=== PATIENT | female | born 1965 | race African-American/Black ===

== ENCOUNTER 2016-11-27 14:36 | Emergency (ER) | payer OTHER ==
[2016-11-27] MEDS ORDERED: ACETAMINOPHEN TAB 500 MG TAB PO STA (14:56)
[2016-11-27] MEDS ORDERED: IBUPROFEN 600 MG TAB PO STA (14:56)
--- NOTE | 2016-11-27 14:59 | ED ---
General Adult HPI - General Chief complaint: Chest Pain Stated complaint: Chest Pain Time Seen by Provider: 11/27/16 14:40 Source: patient, RN notes reviewed Mode of arrival: wheelchair Limitations: no limitations - History of Present Illness Initial comments: This is a 51-year-old female presents emergency room stating she wasn't feeling good last evening and continues not to feel well today. Patient states she has a very bad sore throat and then she started having some chest tightness last night it is subsided after she took Motrin and at that time she had 102 fever. Patient states this morning the chest tightness came back and she had a fever but she did not take any medications. Patient states the sore throat continues. Patient denies any difficulty breathing or shortness of breath. Patient denies any cough. Patient denies any palpitations. Patient denies any abdominal pain patient denies nausea vomiting diarrhea. Patient denies any dysuria hematuria urinary frequency. - Related Data Previous Rx's Medication Instructions Recorded Amoxicillin 500 mg PO Q8H #30 capsule 11/27/16 predniSONE 40 mg PO DAILY #8 tab 11/27/16 Allergies Allergy/AdvReac Type Severity Reaction Status Date / Time codeine Allergy Hallucinati Verified 11/27/16 14:59 ons morphine Allergy Hallucinati Verified 11/27/16 14:59 ons Review of Systems ROS Statement: Those systems with pertinent positive or pertinent negative responses have been documented in the HPI. ROS Other: All systems not noted in ROS Statement are negative. Past Medical History Additional Past Medical History / Comment(s): arnold kiari malformation, HSV type 2 History of Any Multi-Drug Resistant Organisms: None Reported Past Surgical History: Appendectomy, Hysterectomy Additional Past Surgical History / Comment(s): brain, partial hysterectomy Past Psychological History: No Psychological Hx Reported Smoking Status: Never smoker Past Alcohol Use History: None Reported Past Drug Use History: None Reported General Exam - General Exam Comments Initial Comments: GENERAL: Patient is well-developed and well-nourished. Patient is nontoxic and well- hydrated and is in mild distress. ENT: Neck is soft and supple. Patient has some anterior lymphadenopathy. Oropharynx appears slightly erythematous. Moist mucous membranes. Neck has full range of motion without eliciting any pain. EYES: The sclera were anicteric and conjunctiva were pink and moist. Extraocular movements were intact and pupils were equal round and reactive to light. Eyelids were unremarkable. PULMONARY: Unlabored respirations. Good breath sounds bilaterally. No audible rales rhonchi or wheezing was noted. CARDIOVASCULAR: There is a regular rate and rhythm without any murmurs gallops or rubs. ABDOMEN: Soft and nontender with normal bowel sounds. No palpable organomegaly was noted. There is no palpable pulsatile mass. SKIN: Skin is clear with no lesions or rashes and otherwise unremarkable. NEUROLOGIC: Patient is alert and oriented x3. Cranial nerves II through XII are grossly intact. Motor and sensory are also intact. Normal speech, volume and content. Symmetrical smile. MUSCULOSKELETAL: Normal extremities with adequate strength and full range of motion. LYMPHATICS: No significant lymphadenopathy is noted PSYCHIATRIC: Normal psychiatric evaluation. Normal interpersonal interactions appears functionally intact in deals appropriately with others. No signs of depression. 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 Patient's EKG shows no ST segment elevation or depression or T wave abnormalities are noted Patient's chest x-ray shows no acute normalities. Patient's strep was positive. I gave the patient amoxicillin and some prednisone for the swelling. - Lab Data Result diagrams: 11/27/16 15:00 11/27/16 15:00 Lab Results 11/27/16 11/27/16 11/27/16 Range/Units 15:00 15:00 15:00 WBC 15.2 H (3.8-10.6) k/uL RBC 4.76 (3.80-5.40) m/uL Hgb 13.7 (11.4-16.0) gm/dL Hct 40.4 (34.0-46.0) % MCV 84.7 (80.0-100.0) fL MCH 28.8 (25.0-35.0) pg MCHC 34.0 (31.0-37.0) g/dL RDW 13.7 (11.5-15.5) % Plt Count 164 (150-450) k/uL Neutrophils % 85 % Lymphocytes % 10 % Monocytes % 3 % Eosinophils % 1 % Basophils % 0 % Neutrophils # 12.9 H (1.3-7.7) k/uL Lymphocytes # 1.5 (1.0-4.8) k/uL Monocytes # 0.4 (0-1.0) k/uL Eosinophils # 0.2 (0-0.7) k/uL Basophils # 0.0 (0-0.2) k/uL PT (9.0-12.0) sec INR (<1.1) APTT (22.0-30.0) sec Sodium 141 (137-145) mmol/L Potassium 4.3 (3.5-5.1) mmol/L Chloride 106 (98-107) mmol/L Carbon Dioxide 23 (22-30) mmol/L Anion Gap 12 mmol/L BUN 11 (7-17) mg/dL Creatinine 0.74 (0.52-1.04) mg/dL Est GFR (MDRD) Af Amer >60 (>60 ml/min/1.73 sqM) Est GFR (MDRD) Non-Af >60 (>60 ml/min/1.73 sqM) Glucose 113 H (74-99) mg/dL Plasma Lactic Acid Jessee (0.7-2.0) mmol/L Calcium 9.9 (8.4-10.2) mg/dL Magnesium 2.0 (1.6-2.3) mg/dL Total Bilirubin 1.5 H (0.2-1.3) mg/dL AST 27 (14-36) U/L ALT 21 (9-52) U/L Alkaline Phosphatase 92 (38-126) U/L Total Creatine Kinase 130 (30-135) U/L CK-MB (CK-2) 0.3 (0.0-2.4) ng/mL CK-MB (CK-2) Rel Index 0.2 Troponin I <0.012 (0.000-0.034) ng/mL Total Protein 8.1 (6.3-8.2) g/dL Albumin 4.7 (3.5-5.0) g/dL Urine Color Urine Appearance (Clear) Urine pH (5.0-8.0) Ur Specific Heppner (1.001-1.035) Urine Protein (Negative) Urine Glucose (UA) (Negative) Urine Ketones (Negative) Urine Blood (Negative) Urine Nitrite (Negative) Urine Bilirubin (Negative) Urine Urobilinogen (<2.0) mg/dL Ur Leukocyte Esterase (Negative) Urine RBC (0-5) /hpf Urine WBC (0-5) /hpf Ur Squamous Epith Cells (0-4) /hpf Urine Mucus (None) /hpf Group A Strep Rapid (Negative) 11/27/16 11/27/16 11/27/16 Range/Units 15:00 15:00 15:30 WBC (3.8-10.6) k/uL RBC (3.80-5.40) m/uL Hgb (11.4-16.0) gm/dL Hct (34.0-46.0) % MCV (80.0-100.0) fL MCH (25.0-35.0) pg MCHC (31.0-37.0) g/dL RDW (11.5-15.5) % Plt Count (150-450) k/uL Neutrophils % % Lymphocytes % % Monocytes % % Eosinophils % % Basophils % % Neutrophils # (1.3-7.7) k/uL Lymphocytes # (1.0-4.8) k/uL Monocytes # (0-1.0) k/uL Eosinophils # (0-0.7) k/uL Basophils # (0-0.2) k/uL PT (9.0-12.0) sec INR (<1.1) APTT (22.0-30.0) sec Sodium (137-145) mmol/L Potassium (3.5-5.1) mmol/L Chloride (98-107) mmol/L Carbon Dioxide (22-30) mmol/L Anion Gap mmol/L BUN (7-17) mg/dL Creatinine (0.52-1.04) mg/dL Est GFR (MDRD) Af Amer (>60 ml/min/1.73 sqM) Est GFR (MDRD) Non-Af (>60 ml/min/1.73 sqM) Glucose (74-99) mg/dL Plasma Lactic Acid Jessee 1.0 (0.7-2.0) mmol/L Calcium (8.4-10.2) mg/dL Magnesium (1.6-2.3) mg/dL Total Bilirubin (0.2-1.3) mg/dL AST (14-36) U/L ALT (9-52) U/L Alkaline Phosphatase (38-126) U/L Total Creatine Kinase (30-135) U/L CK-MB (CK-2) (0.0-2.4) ng/mL CK-MB (CK-2) Rel Index Troponin I (0.000-0.034) ng/mL Total Protein (6.3-8.2) g/dL Albumin (3.5-5.0) g/dL Urine Color Yellow Urine Appearance Clear (Clear) Urine pH 7.0 (5.0-8.0) Ur Specific Heppner 1.014 (1.001-1.035) Urine Protein Negative (Negative) Urine Glucose (UA) Negative (Negative) Urine Ketones Negative (Negative) Urine Blood Large H (Negative) Urine Nitrite Negative (Negative) Urine Bilirubin Negative (Negative) Urine Urobilinogen 2.0 (<2.0) mg/dL Ur Leukocyte Esterase Negative (Negative) Urine RBC 53 H (0-5) /hpf Urine WBC 1 (0-5) /hpf Ur Squamous Epith Cells 1 (0-4) /hpf Urine Mucus Rare H (None) /hpf Group A Strep Rapid Positive A (Negative) 11/27/16 Range/Units 16:15 WBC (3.8-10.6) k/uL RBC (3.80-5.40) m/uL Hgb (11.4-16.0) gm/dL Hct (34.0-46.0) % MCV (80.0-100.0) fL MCH (25.0-35.0) pg MCHC (31.0-37.0) g/dL RDW (11.5-15.5) % Plt Count (150-450) k/uL Neutrophils % % Lymphocytes % % Monocytes % % Eosinophils % % Basophils % % Neutrophils # (1.3-7.7) k/uL Lymphocytes # (1.0-4.8) k/uL Monocytes # (0-1.0) k/uL Eosinophils # (0-0.7) k/uL Basophils # (0-0.2) k/uL PT 10.6 (9.0-12.0) sec INR 1.0 (<1.1) APTT 24.1 (22.0-30.0) sec Sodium (137-145) mmol/L Potassium (3.5-5.1) mmol/L Chloride (98-107) mmol/L Carbon Dioxide (22-30) mmol/L Anion Gap mmol/L BUN (7-17) mg/dL Creatinine (0.52-1.04) mg/dL Est GFR (MDRD) Af Amer (>60 ml/min/1.73 sqM) Est GFR (MDRD) Non-Af (>60 ml/min/1.73 sqM) Glucose (74-99) mg/dL Plasma Lactic Acid Jessee (0.7-2.0) mmol/L Calcium (8.4-10.2) mg/dL Magnesium (1.6-2.3) mg/dL Total Bilirubin (0.2-1.3) mg/dL AST (14-36) U/L ALT (9-52) U/L Alkaline Phosphatase (38-126) U/L Total Creatine Kinase (30-135) U/L CK-MB (CK-2) (0.0-2.4) ng/mL CK-MB (CK-2) Rel Index Troponin I (0.000-0.034) ng/mL Total Protein (6.3-8.2) g/dL Albumin (3.5-5.0) g/dL Urine Color Urine Appearance (Clear) Urine pH (5.0-8.0) Ur Specific Heppner (1.001-1.035) Urine Protein (Negative) Urine Glucose (UA) (Negative) Urine Ketones (Negative) Urine Blood (Negative) Urine Nitrite (Negative) Urine Bilirubin (Negative) Urine Urobilinogen (<2.0) mg/dL Ur Leukocyte Esterase (Negative) Urine RBC (0-5) /hpf Urine WBC (0-5) /hpf Ur Squamous Epith Cells (0-4) /hpf Urine Mucus (None) /hpf Group A Strep Rapid (Negative) Disposition Clinical Impression: Strep pharyngitis Disposition: HOME SELF-CARE Condition: Good Instructions: Strep Throat (ED) Prescriptions: Amoxicillin 500 mg PO Q8H #30 capsule predniSONE 40 mg PO DAILY #8 tab Referrals: Keren Turner MD [Primary Care Provider] - 1-2 days
[2016-11-27 15:34] VITALS: RESP 18
--- NOTE | 2016-11-27 15:35 | XR ---
EXAMINATION TYPE: XR chest 2V DATE OF EXAM: 11/27/2016 CLINICAL HISTORY: Chest pain TECHNIQUE: Frontal and lateral views of the chest are obtained. COMPARISON: 08/17/2015 FINDINGS: There is no focal air space opacity, pleural effusion, or pneumothorax seen. The cardiac silhouette size is within normal limits. The osseous structures are intact. IMPRESSION: No acute cardiopulmonary process.
[2016-11-27 15:45] LABS: Appearance,Urine Clear (Clear); Bilirubin,Urine Negative (Negative); Glucose,Urine (UA) Negative (Negative); Ketones,Urine Negative (Negative); Leukocyte Esterase,Urine Negative (Negative); Mucus,Urine Rare /hpf; Nitrite,Urine Negative (Negative); Particle Count 1526; Protein,Urine Negative (Negative); RBC,Urine 53 /hpf (0-5); Specific Gravity,Urine 1.014 (1.001-1.035); Squamous Epithelial Cell,Urine 1 /hpf (0-4); UA Billing (MACRO vs. MICRO) MICRO; WBC,Urine 1 /hpf (0-5)
[2016-11-27 15:47] LABS: Basophils % (A) 0 %; CH 28.5; CHCM 33.8; Eosinophils # (A) 0.2 k/uL (0-0.7); Eosinophils % (A) 1 %; HCT 40.4 % (34.0-46.0); HDW 2.61; HGB 13.7 gm/dL (11.4-16.0); Luc # (Auto) 0.15; Luc % (Auto) 1; Lymphocytes # (A) 1.5 k/uL (1.0-4.8); Lymphocytes % (A) 10 %; MCH 28.8 pg (25.0-35.0); MCV 84.7 fL (80.0-100.0); Mean Platelet Volume 8.6; Monocytes # (A) 0.4 k/uL (0-1.0); Monocytes % (A) 3 %; Neutrophils # (A) 12.9 k/uL (1.3-7.7); Neutrophils % (A) 85 %; RBC 4.76 m/uL (3.80-5.40); RDW 13.7 % (11.5-15.5); WBC 15.2 k/uL (3.8-10.6); WBC (Perox) 14.38
[2016-11-27 15:54] LABS: ALT 21 U/L (9-52); AST 27 U/L (14-36); Alkaline Phosphatase 92 U/L (38-126); Anion Gap 12 mmol/L; Blood Urea Nitrogen 11 mg/dL (7-17); Calcium 9.9 mg/dL (8.4-10.2); Carbon Dioxide 23 mmol/L (22-30); Chloride 106 mmol/L (98-107); Glucose 113 mg/dL (74-99); Non-African American GFR(MDRD) >60 (>60 ml/min/1.73 sqM); Potassium 4.3 mmol/L (3.5-5.1); Sodium 141 mmol/L (137-145); Total Bilirubin 1.5 mg/dL (0.2-1.3); Total Protein 8.1 g/dL (6.3-8.2)
[2016-11-27 16:04] LABS: Creatine Kinase 130 U/L (30-135)
[2016-11-27 16:18] LABS: Creatine Kinase MB 0.3 ng/mL (0.0-2.4); Troponin I <0.012 ng/mL (0.000-0.034)
[2016-11-27 16:28] LABS: Partial Thromboplastin Time 24.1 sec (22.0-30.0)
[2016-11-27 16:32] LABS: Prothrombin Time 10.6 sec (9.0-12.0)
[2016-11-27] MEDS ORDERED: AMOXICILLIN 875 MG TAB PO STA (16:43)
[2016-11-27] MEDS ORDERED: predniSONE 50 MG TAB PO STA (16:43)
[2016-11-27] MEDS ORDERED: AMOXICILLIN 500MG STARTER PACK 3 CAP BTL PO STA (16:43)
[2016-11-27 17:07] VITALS: BP 104/57; PULSE 88; TEMP 98.6
== END 2016-11-27 17:07 | disposition home or self-care (01) ==
LOC: EC 14:36
DX: J02.0 Streptococcal pharyngitis (principal); R07.89 Other chest pain; R00.0 Tachycardia, unspecified; Z88.5 Allergy status to narcotic agent
CPT/HCPCS: 36415; 93005; 80053; 82550; 82553; 83605; 83735; 84484; 85025; 85610; 85730; 81001; 87040; 87430; 71020; 99285; J7512

== ENCOUNTER → 2019-11-09 | Outpatient (CLI) | payer OTHER ==
[2019-11-09 14:49] VITALS: BP 110/68; PULSE 74; RESP 18; TEMP 98.3
--- NOTE | 2019-11-09 16:10 | P.GSHP ---
History of Present Illness H&P Date: 11/09/19 Chief Complaint: mass right breast Esmer is a 54 year old female seen in consultation for Dr. Lugo, who noted a lump in her right breast about 3 weeks ago. The area was noted to be tender and had a burning sensatin. The area seems to have gotten sm aller as per the patient. She states she was seen in the ER at [facility] about three weeks ago secondary to feeling a lump in that area. She was seen by DR. Lugo, and a bilateral mammogram and ultrasound were done. These were done on 10-26-19, and 10-27-19. She was some irregular new density in the craniocaudal view. Ultrasound was recommended. Ultrasound of the right breast revealed a microlobulated non-circumscribed irregular mass. This was 2.3 cm x 2.4 cm at the 12 o'clock position. The patient states she had a prior right breast biopsy several years ago at [facility]. The results were benign although she does not remember exactly when it was done. She does not think that the lump corresponds to the area of the prior biopsy. She does not complain of any nipple discharge. She does have some mild skin discoloration near the area where the ultrasound was performed. She does not drink caffeine. She does not smoke and is not exposed to second hand smoke. She has chocolate occasionally. He does not take hormones. Family History: mother: cervical and colon cancer, bilateral buttock cancers maternal cousin: breast cancer Hormonal History: menarche: 18 , 1stillborn, 2 miscarriages; first born at 26, breast fed: no menopause: partial hysterectomy at 42; fibroid tumors BCP: none hormones: none Surgical history: 1. Partial hysterectomy at 42 for fibroid tumors 2. Right breast biopsy 3. Appendectomy 4. lump under left arm 5. Arnold-Chiari malformation had brain surgery in 2006 secondary to headaches Medical History: 1. Arnold-Chiari malformation (spatial issues, muscle weakness right side of body, poor balance) Social History: smoke: none alcohol: wine occasional drugs: none - Constitutional Constitutional: Reports sweats - EENT Comment: arnold chairi malformation/ status post surgery Ears: bilateral: tinnitus, deny: decreased hearing Ears, nose, mouth and throat: Reports headache - Breasts Breasts: bilateral: as per HPI - Cardiovascular Cardiovascular: Denies chest pain, Denies shortness of breath - Respiratory Comment: grew out of asthma, used to get pneumona in the summer not recently for 4 years - Gastrointestinal Gastrointestinal: Reports constipation - Genitourinary (Female) Genitourinary: Denies dysuria, Denies hematuria - Menstruation Menstruation: Reports post hysterectomy - Musculoskeletal Comment: weakness on the right side cramping in her right leg - Integumentary Integumentary: Denies pruritus, Denies rash - Neurological Neurological: Reports weakness - Psychiatric Psychiatric: Reports anxiety, Denies depression - Endocrine Endocrine: Reports weight change, Denies fatigue - Hematologic/Lymphatic Comment: none - Allergic/Immunologic Allergic/Immunologic: Reports seasonal allergies Past Medical History Additional Past Medical History / Comment(s): arnold kiari malformation, HSV type 2 History of Any Multi-Drug Resistant Organisms: None Reported Past Surgical History: Appendectomy, Hysterectomy Additional Past Surgical History / Comment(s): brain, partial hysterectomy Past Psychological History: No Psychological Hx Reported Smoking Status: Never smoker Past Alcohol Use History: None Reported Past Drug Use History: None Reported Medications and Allergies Home Medications Medication Instructions Recorded Confirmed Type Ascorbic Acid [Vitamin C] 500 mg PO DAILY 11/09/19 11/09/19 History Cascara [place] 1 tab PO DAILY 11/09/19 11/09/19 History Cholecalciferol [Vitamin D3 (25 2,000 unit PO DAILY 11/09/19 11/09/19 History Mcg = 1000 Iu)] Licorice Extract 1 ml PO DAILY 11/09/19 11/09/19 History Lysine 500 mg PO DAILY 11/09/19 11/09/19 History Magnesium 200 mg PO DAILY 11/09/19 11/09/19 History Potassium Iodide [SSKI] 0 ml PO DAILY 11/09/19 11/09/19 History Vitamin B Complex 1 each PO DAILY 11/09/19 11/09/19 History Zinc 50 mg PO DAILY 11/09/19 11/09/19 History Allergies Allergy/AdvReac Type Severity Reaction Status Date / Time amoxicillin Allergy Rash/Hives Unverified 11/09/19 14:37 codeine Allergy Hallucinati Verified 11/09/19 14:37 ons Iodinated Contrast Media Allergy Rash/Hives Unverified 11/09/19 14:37 morphine Allergy Hallucinati Verified 11/09/19 14:37 ons Sulfa (Sulfonamide Allergy Rash/Hives Unverified 11/09/19 14:37 Antibiotics) sulfamethoxazole Allergy Rash/Hives Unverified 11/09/19 14:37 [From Bactrim] trimethoprim [From Bactrim] Allergy Rash/Hives Unverified 11/09/19 14:37 Surgical - Exam Vital Signs Temp Pulse Resp BP Pulse Ox 98.3 F 74 18 110/68 98 11/09/19 14:42 11/09/19 14:42 11/09/19 14:42 11/09/19 14:42 11/09/19 14:42 BMI 31.4 - General well developed, well nourished - Eyes normal ocular movement - ENT no hearing loss, no congestion - Neck no masses, trachea midline - Respiratory normal expansion, normal respiratory effort, clear to auscultation - Cardiovascular Rhythm: regular Heart Sounds: normal: S1, S2 - Abdomen Abdomen: soft, non tender, no guarding, no rigid, no rebound - Integumentary normal turgor - Neurologic no disoriented, no combative - Musculoskeletal normal gait, normal posture - Psychiatric oriented to time, oriented to person, oriented to place, speech is normal, memory intact breast exam: BRA: 44G inspection: grade three ptosis bilateral Palpation: Right breast: Right breast is significantly larger than the left breast, fibrocystic breast changes and multiple positional exam, at the 12 o'clock posi tion was approximately 3 x 2.5 cm fullness/mass, this is discrete from the prior biopsy site, there is a well-healed scar in the area of the axilla from prior surgery as well Right axilla: No adenopathy of concern Left breast: Multiple positional exam no dominant masses or nodules of concern, left breast is smaller than the right breast Left axilla: No adenopathy of concern Results Mammogram and ultrasound reviewed with Dr. Xavier from radiology Assessment and Plan Assessment: Impression: Mass right breast Four [place] Chiari malformation/status post surgery Weakness right side of body Abnormal right breast mammogram and ultrasound Asymmetry of the breast Plan: 1. Ultrasound-guided core biopsy right breast 2. Follow-up after ultrasound-guided core biopsy of right breast 3. Medical management of medical conditions CC: Dr. Lugo encounter 45 minutes, > 50% of time spent in planning and counselling
== END | disposition home or self-care (01) ==
LOC: WWCWWP 14:23
PROVIDERS: ATTEND Surgery
DX: Z53.9 Procedure and treatment not carried out, unspecified reason (principal)

== ENCOUNTER → 2019-11-15 | Day surgery (SDC) | payer OTHER ==
[2019-11-15 09:44] VITALS: RESP 16; TEMP 98.3
[2019-11-15 11:48] VITALS: BP 134/81; PULSE 71
--- NOTE | 2019-11-15 12:15 | USB ---
EXAMINATION TYPE: US biopsy breast VAD RT, MG post procedure diagnostic mammo RT wo CAD DATE OF EXAM: 11/15/2019 CLINICAL HISTORY: 54-year-old female R92.8 ABN MAMMO. TECHNIQUE: Ultrasound guided core biopsy of right breast. COMPARISON: 10/26/2019 and 10/27/2019 FINDINGS: The procedure of ultrasound guided core biopsy was explained to the patient. Benefits, alternatives, and risks were discussed. An informed consent was then obtained. The irregular 3.1 cm, 12:00 vascular heterogeneous area was identified and targeted for biopsy. The patient was placed in supine positioning for imaging and for the procedure. The overlying skin was prepped and draped in usual sterile fashion. Lidocaine was used as anesthetic into the skin. Lidocaine/epinephrine mixture was used in the subcutaneous tissues up to and into the area of concern in the 12:00 right breast. Patient was experiencing discomfort/pain during the numbing and during the sampling. Under ultrasound guidance, a 13-gauge vacuum-assisted mammotome Elite biopsy gun device was used to obtain 8 core samples. The needle was turned to take samples from multiple positions. Following this, a coil clip was left at the site of sampling. The patient tolerated the procedure well without any immediate complication. The patient was kept in the radiology department for short stay after the procedure and then discharged home in stable condition. Post procedure mammogram shows clip at the site of mammographic focal asymmetry. IMPRESSION: Successful, uncomplicated ultrasound guided core biopsy of irregular 3.1 cm palpable and painful area in the 12:00 right breast. Findings are suspicious. If benign results, needle localization and excision will be recommended. Full pathology results to follow. Pathology Results: Malignant RIGHT BREAST, TWELVE O'CLOCK, ULTRASOUND GUIDED CORE BIOPSY: Invasive poorly differentiated ductal carcinoma (Grade 3). See Surgical Pathology Cancer Case Summary and Comment. Recommendation Surgical consult of the right breast. ZANE
== END ==
LOC: RADUSWWP 09:14
PROVIDERS: ATTEND Surgery
DX: C50.911 Malignant neoplasm of unspecified site of right female breast (principal); Z17.1 Estrogen receptor negative status [ER-]; Z88.5 Allergy status to narcotic agent; Z88.0 Allergy status to penicillin; Z88.2 Allergy status to sulfonamides; Z91.048 Other nonmedicinal substance allergy status; Z91.09 Other allergy status, other than to drugs and biological substances
CPT/HCPCS: 88305; 88342; 88341; 77065; 19083; A4648; J2001

== ENCOUNTER → 2019-11-24 | Outpatient (CLI) | payer OTHER ==
[2019-11-24 10:28] VITALS: BP 113/70; PULSE 77; RESP 18; TEMP 98
--- NOTE | 2019-11-24 11:24 | P.PN ---
Subjective Progress Note Date: 11/24/19 Principal diagnosis: Stage IIB right breast cancer [id number]- Esmer is a 53 year old female who had an ultrasound core biopsy done on 11-15-19 which was positive for invasive carcinoma of the breast. This was a grade 3 lesion which was triple negative. It is approximately 2.7 cm in size. Making this a stage to the cancer. Possible treatment options. We have talked about her see medical oncology and possible preoperative chemotherapy. She understands she herself would like to have bilateral mastectomy at this point. I discussed that this is not necessary that she could have a lumpectomy however she would like to have both breasts removed with our reconstruction at this time. She will see medical oncology and further recommendation after seeing them. She has no complaints related to the biopsy. Objective - Vital Signs Vital signs: Vital Signs Temp 98.0 F 11/24/19 10:23 Pulse 77 11/24/19 10:23 Resp 18 11/24/19 10:23 BP 113/70 11/24/19 10:23 Pulse Ox 98 11/24/19 10:23 Intake & Output 11/23/19 11/24/19 11/24/19 18:59 06:59 18:59 Weight 82.1 kg - Exam BMI 32.1 - Constitutional General appearance: Present: obese - EENT ENT: Present: hearing grossly normal - Neck Neck: Present: normal ROM - Respiratory Respiratory: bilateral: CTA - Cardiovascular Rhythm: regular Heart sounds: normal: S1, S2 - Integumentary Integumentary Comment(s): no evidence of infection or hematoma Integumentary: Present: normal turgor - Musculoskeletal Musculoskeletal: Present: gait normal, strength equal bilaterally - Psychiatric Psychiatric: Present: A&O x's 3, appropriate affect, intact judgment & insight Assessment and Plan Assessment: Impression/Plan: 1. Stage IIB right breast cancer 2. Patient with macromastia size G cup breast bilateral/at this time she has been given the option of a lumpectomy via reduction mastopexy incision however she states she wants bilateral mastectomies to be done; this will be re- addressed after appointment with medical oncology 3. Appointment with medical oncology for possible preoperative chemotherapy 4. Presentation of case at tumor board CC: Dr. Lugo Surgical options including lumpectomy, reduction mastopexy lumpectomy, bilateral mastectomy were discussed with the patient. However prior to any surgical intervention she will most likely receive preoperative chemotherapy. She is being seen by medical oncology prior to any decisions pain made. We've also discussed medical oncology and radiation oncology treatment options. Her case will be discussed at tumor board. She will be seen again following discussion of her case at tumor board. encounter 45 minutes, > 50% of time in planning and counselling
== END | disposition home or self-care (01) ==
LOC: WWCWWP 10:15
PROVIDERS: ATTEND Surgery
DX: Z53.9 Procedure and treatment not carried out, unspecified reason (principal)

== ENCOUNTER → 2019-12-01 | Outpatient (CLI) | payer OTHER ==
--- NOTE | 2019-12-01 13:36 | ECHOF ---
Referral Reason:[id number] Chemo exposure MEASUREMENTS -------- HEIGHT: 160.0 cm WEIGHT: 83.5 kg BP: RVIDd: 2.4 cm (< 3.3) IVSd: 1.2 cm (0.6 - 1.1) LVIDd: 4.2 cm (3.9 - 5.3) LVPWd: 1.0 cm (0.6 - 1.1) IVSs: 1.4 cm LVIDs: 3.3 cm LVPWs: 1.1 cm LA Diam: 3.1 cm (2.7 - 3.8) LAESV Index (A-L): 13.66 ml/m Ao Diam: 2.2 cm (2.0 - 3.7) AV Cusp: 1.5 cm (1.5 - 2.6) LA Diam: 3.6 cm (2.7 - 3.8) MV EXCURSION: 21.866 mm (> 18.000) MV EF SLOPE: 90 mm/s (70 - 150) EPSS: 0.3 cm MV E Jaime: 0.87 m/s MV DecT: 165 ms MV A Jaime: 0.94 m/s MV E/A Ratio: 0.92 RAP: 5.00 mmHg RVSP: 26.63 mmHg FINDINGS -------- Sinus rhythm. This was a technically good study. The left ventricular size is normal. There is mild concentric left ventricular hypertrophy. Overa ll left ventricular systolic function is normal with, an EF between 55 - 60 %. The right ventricle is normal in size. The left atrial size is normal. The right atrial size is normal. The aortic valve is trileaflet, and appears structurally normal. No aortic stenosis or regurgitation. Mild mitral annular calcification present. Mild mitral regurgitation is present. Mild tricuspid regurgitation present. Right ventricular systolic pressure is normal at < 35 mmHg. There is no pulmonic regurgitation present. The aortic root size is normal. There is no pericardial effusion. CONCLUSIONS -------- 1. Sinus rhythm. 2. This was a technically good study. 3. The left ventricular size is normal. 4. There is mild concentric left ventricular hypertrophy. 5. Overall left ventricular systolic function is normal with, an EF between 55 - 60 %. 6. The right ventricle is normal in size. 7. The left atrial size is normal. 8. The right atrial size is normal. 9. The aortic valve is trileaflet, and appears structurally normal. No aortic stenosis or regurgitati on. 10. Mild mitral annular calcification present. 11. Mild mitral regurgitation is present. 12. Mild tricuspid regurgitation present. 13. Right ventricular systolic pressure is normal at < 35 mmHg. 14. There is no pulmonic regurgitation present. 15. The aortic root size is normal. 16. There is no pericardial effusion. PATENT PROSECUTION PARALEGAL: Anjali Cuadra RDCS
== END | disposition home or self-care (01) ==
LOC: RADECHMAIN 07:45
PROVIDERS: ATTEND Internal Medicine Hematology & Oncology
DX: I08.1 Rheumatic disorders of both mitral and tricuspid valves (principal); Z88.2 Allergy status to sulfonamides; Z88.5 Allergy status to narcotic agent; Z88.1 Allergy status to other antibiotic agents; Z91.040 Latex allergy status; Z88.0 Allergy status to penicillin
CPT/HCPCS: 93306

== ENCOUNTER 2019-12-08 06:40 | Day surgery (SDC) | payer OTHER ==
[~2019-12-08 06:40] MED LIST: ACETAMINOPHEN TAB 500 MG TAB PO ONE; DEXAMETHASONE SOD PHOSPHATE 10 MG/ML 1 ML VIAL IV ONE; HEPARIN SODIUM,PORCINE 5,000 UNIT/ML 1 ML VIAL SQ ONE; HYDROmorphone 0.5 MG/0.5 ML SYRINGE IVP PRN; LACTATED RINGERS 1,000 ML IV SCH; LIDOCAINE 1% (10MG/ML) FOR IV START INTRADERMA PRN; MIDAZOLAM 2 MG/2 ML VIAL IV PRN; ONDANSETRON 4 MG/2 ML VIAL IVP ONE; Pre Op ABX Message 1 EACH MISC MISCELLANE ONE
[2019-12-08] MEDS ORDERED: SCOPOLAMINE 1.5MG/72HR PATCH TRANSDERM ONE (07:34)
[2019-12-08] MEDS ORDERED: MIDAZOLAM 2 MG/2 ML VIAL ONE (07:50)
[2019-12-08] MEDS ORDERED: LIDOCAINE 1% INJ 10MG/ML (20 ML MDV) ONE (07:50)
[2019-12-08] MEDS ORDERED: PHENYLEPHRINE-0.9% NACL SYG 1 MG/10 ML SYRINGE ONE (07:50)
[2019-12-08] MEDS ORDERED: fentaNYL (PF) 50 MCG/ML 2 ML AMP ONE (07:50)
[2019-12-08] MEDS ORDERED: PROPOFOL 10 MG/ML 20 ML VIAL IV ONE (07:50)
--- NOTE | 2019-12-08 07:54 | P.GSHP ---
History of Present Illness H&P Date: 12/08/19 Chief Complaint: Right breast cancer 54-year-old female here today for Port-A-Cath placement. Patient is about to begin neoadjuvant chemotherapy for a moderate sized right breast cancer. Patient having complaints of pain at the site of the breast cancer itself. She has not had a port previously. Past Medical History Past Medical History: Cancer, GERD/Reflux Additional Past Medical History / Comment(s): Arnold Kiari Malformation, HSV type 2, Right breast cancer, diagnosed recently. History of Any Multi-Drug Resistant Organisms: None Reported Past Surgical History: Appendectomy, Breast Surgery, Hysterectomy Additional Past Surgical History / Comment(s): Brain surgery 2007, partial hysterectomy, hx. benign right breast needle biopsy. Past Anesthesia/Blood Transfusion Reactions: Motion Sickness, Postoperative Nausea & Vomiting (PONV) Past Psychological History: Anxiety Additional Psychological History / Comment(s): Situational anxiety. Smoking Status: Never smoker Past Alcohol Use History: Occasional Past Drug Use History: None Reported - Past Family History Mother Family Medical History: Cancer Additional Family Medical History / Comment(s): Cervical, Uterine & Colon Cancer. Medications and Allergies Home Medications Medication Instructions Recorded Confirmed Type Cholecalciferol [Vitamin D3 (25 5,000 unit PO DAILY 11/09/19 12/06/19 History Mcg = 1000 Iu)] Licorice Extract 1 ml PO DAILY 11/09/19 12/06/19 History Magnesium 200 mg PO DAILY 11/09/19 12/06/19 History Potassium Iodide [SSKI] 0 ml PO DAILY 11/09/19 12/06/19 History Vitamin B Complex 1 each PO DAILY 11/09/19 12/06/19 History Allergies Allergy/AdvReac Type Severity Reaction Status Date / Time adhesive Allergy Rash/Hives Verified 12/08/19 06:57 amoxicillin Allergy Rash/Hives Unverified 12/08/19 06:57 codeine Allergy Hallucinati Verified 12/08/19 06:57 ons erythromycin base Allergy Rash/Hives Verified 12/08/19 06:57 Iodinated Contrast Media Allergy Rash/Hives Unverified 12/08/19 06:57 morphine Allergy Hallucinati Verified 12/08/19 06:57 ons Sulfa (Sulfonamide Allergy Rash/Hives Unverified 12/08/19 06:57 Antibiotics) sulfamethoxazole Allergy Rash/Hives Unverified 12/08/19 06:57 [From Bactrim] trimethoprim [From Bactrim] Allergy Rash/Hives Unverified 12/08/19 06:57 Surgical - Exam Vital Signs Temp Pulse Resp BP Pulse Ox 97.7 F 78 16 136/72 99 12/08/19 07:21 12/08/19 07:21 12/08/19 07:21 12/08/19 07:21 12/08/19 07:21 Physical exam: General: Well-developed, well-nourished HEENT: Normocephalic, sclerae nonicteric Abdomen: Nontender, nondistended Extremities: No edema Neuro: Alert and oriented Right breast mass noted Assessment and Plan (1) Breast cancer, right Narrative/Plan: Will proceed with Port-A-Cath placement at this time. Risks of bleeding, infection, DVT, pneumothorax, catheter malfunction, anesthesia related complications were discussed. The patient understands and wishes to proceed. Current Visit: Yes Status: Acute Code(s): C50.911 - MALIGNANT NEOPLASM OF UNSP SITE OF RIGHT FEMALE BREAST SNOMED Code(s): 353122718
[2019-12-08] MEDS ORDERED: HEPARIN SODIUM,PORCINE 100 UNIT/ML 5 ML VIAL IV ONE ×2 (08:13)
[2019-12-08] MEDS ORDERED: LIDOCAINE 1% INJ 10MG/ML (20 ML MDV) SQ ONE ×2 (08:13→08:19)
[2019-12-08] MEDS ORDERED: SODIUM CHLORIDE 0.9% 100 ML with CLINDAMYCIN 600 MG IV ONE ×2 (08:18)
[2019-12-08] MEDS ORDERED: LACTATED RINGERS 1,000 ML IV ONE (08:31)
--- NOTE | 2019-12-08 08:52 | FL ---
EXAMINATION TYPE: FL guided central line placemt HISTORY: Fluoroscopy time Impression: 1. Fluoroscopy support provided to the referring physician. 1 minute and 24 seconds of fluoroscopy pr ovided.
--- NOTE | 2019-12-08 08:54 | P.OP ---
Date of Procedure: 12/08/19 Procedure(s) Performed: PREOPERATIVE DIAGNOSIS: Right-sided breast cancer POSTOPERATIVE DIAGNOSIS: Same PROCEDURE: Port-A-Cath placement with fluoroscopic and ultrasound guidance SURGEON: Susan EBL: Minimal ANESTHESIA: Sedation COMPLICATIONS: None OPERATIVE PROCEDURE: Patient was brought and placed on the operative table in the supine position. The patient was sedated per anesthesia that time. The chest and neck were prepped and draped in usual sterile fashion. The ultrasound probe was used to identify the location of the right internal jugular vein. The skin was localized with lidocaine. The Seldinger needle was advanced into the IJ under ultrasound guidance. The wire was advanced through the needle under fluoroscopic guidance into the superior vena cava. A port pocket was created in the right infraclavicular location. The catheter was tunneled from the wire entrance site to the port pocket. The port was then connected to the catheter. The dilator introducer was threaded over the guidewire. The guidewire and dilator were then removed. The catheter was advanced through the introducer and introducer was then removed. The tip was seen to be in the right atrial junction via fluoroscopy. A picture of the radiograph showing the tip at the radial digital junction was taken. Port was flushed with both saline and a Hep- Lock solution. There was good flow both in and out of the port. The port was sutured in underlying tissues using 3-0 silk sutures. The subcutaneous tissues were reapproximated using 3-0 Vicryl sutures and the skin at both locations using 4-0 Monocryl sutures. Skin glue and sterile dressings then applied. DISPOSITION: Stable to recovery room
[2019-12-08 09:20] VITALS: RESP 16; TEMP 96.9; BMI 32.5
[2019-12-08 10:39] VITALS: BP 113/74; PULSE 65
--- NOTE | 2019-12-08 10:46 | XR ---
EXAMINATION TYPE: XR chest 1V portable DATE OF EXAM: 12/08/2019 COMPARISON: 11/27/2016 HISTORY: Port insertion TECHNIQUE: Single frontal view of the chest is obtained. FINDINGS: There is no focal air space opacity, pleural effusion, or pneumothorax seen. The cardiac silhouette size is within normal limits. The osseous structures are intact. Right-sided port is see n at the caval atrial junction with no pneumothorax. No overt failure. Hypertrophic and degenerative changes of the spine. IMPRESSION: 1. Mediport appears in good position with no sizable pneumothorax.
[2019-12-08] MEDS ORDERED: traMADol 50 MG TAB PO PRN (10:55)
[2019-12-08] MEDS ORDERED: NALOXONE 0.4 MG/ML 1 ML VIAL IV PRN (10:55)
== END 2019-12-08 11:39 | disposition home or self-care (01) ==
LOC: OR 06:40
PROVIDERS: ATTEND Surgery
DX: C50.911 Malignant neoplasm of unspecified site of right female breast (principal); K21.9 Gastro-esophageal reflux disease without esophagitis; G93.5 Compression of brain; B00.9 Herpesviral infection, unspecified; Z90.49 Acquired absence of other specified parts of digestive tract; Z98.890 Other specified postprocedural states; Z90.710 Acquired absence of both cervix and uterus; Z87.898 Personal history of other specified conditions; Z91.89 Other specified personal risk factors, not elsewhere classified; F41.8 Other specified anxiety disorders; Z79.899 Other long term (current) drug therapy; Z91.09 Other allergy status, other than to drugs and biological substances; Z88.0 Allergy status to penicillin; Z88.5 Allergy status to narcotic agent; Z88.1 Allergy status to other antibiotic agents; Z91.041 Radiographic dye allergy status; Z88.2 Allergy status to sulfonamides; Z80.49 Family history of malignant neoplasm of other genital organs; Z80.0 Family history of malignant neoplasm of digestive organs
CPT/HCPCS: 77001; 71045; 36561; C1788; J2250; J1644; J1642; J1100; J2405; J2001; J3010; J2370; J2704

== ENCOUNTER → 2019-12-08 | Outpatient (CLI) | payer OTHER ==
[2019-12-08 13:48] VITALS: BP 124/75; PULSE 83; RESP 18; TEMP 98.1
--- NOTE | 2019-12-08 14:10 | P.PN ---
Progress Note - Text Progress Note Date: 12/08/19 Esmer is a 54 year old female with a stage IIB right breast cancer. She had a recent PET scan performed which did not show any metastatic disease, there is a questionable lesion in the thyroid and an ultrasound will be obtained of the thyroid. She is going to have neoadjuvant chemotherapy. She will follow up here in approximately 2 months. At this time we'll discuss the possibility of a lumpectomy through a reduction mastopexy incision versus bilateral mastectomies. She will consider this and we will be discussing when she comes back in 2 months. At the present time she is going to have an ultrasound of her thyroid. She will start chemotherapy next week. This is going to be every 2 weeks for 4 months. CC: Dr. Lugo encounter 20 minutes, entire time spent in planning and counselling.
== END | disposition home or self-care (01) ==
LOC: WWCWWP 13:35
PROVIDERS: ATTEND Surgery
DX: Z53.9 Procedure and treatment not carried out, unspecified reason (principal)

== ENCOUNTER 2019-12-12 10:13 | Day surgery (SDC) | payer OTHER ==
[2019-12-08 09:21] VITALS: BMI 32.5
[~2019-12-12 10:13] MED LIST changes: +ACETAMINOPHEN TAB 500 MG TAB ONE; -ACETAMINOPHEN TAB 500 MG TAB PO ONE; -DEXAMETHASONE SOD PHOSPHATE 10 MG/ML 1 ML VIAL IV ONE; +HEPARIN SODIUM,PORCINE 5,000 UNIT/ML 1 ML VIAL ONE; -HEPARIN SODIUM,PORCINE 5,000 UNIT/ML 1 ML VIAL SQ ONE; -HYDROmorphone 0.5 MG/0.5 ML SYRINGE IVP PRN; -LIDOCAINE 1% (10MG/ML) FOR IV START INTRADERMA PRN; -MIDAZOLAM 2 MG/2 ML VIAL IV PRN; -ONDANSETRON 4 MG/2 ML VIAL IVP ONE; +ONDANSETRON 4 MG/2 ML VIAL ONE; -Pre Op ABX Message 1 EACH MISC MISCELLANE ONE
[2019-12-12 11:17] VITALS: TEMP 97.2
[2019-12-12] MEDS ORDERED: LIDOCAINE 1% (10MG/ML) FOR IV START INTRADERMA ONE (11:27)
[2019-12-12] MEDS ORDERED: ONDANSETRON 4 MG/2 ML VIAL ONE (12:02)
[2019-12-12] MEDS ORDERED: PROPOFOL 10 MG/ML 20 ML VIAL IV ONE (12:02)
--- NOTE | 2019-12-12 12:06 | P.GSHP ---
History of Present Illness H&P Date: 12/12/19 Chief Complaint: Colon cancer screening Patient here today for colonoscopy. Recently diagnosed with breast cancer. Family history of colon cancer in her mother. She is not sure when her last colonoscopy was. No bowel complaints. Past Medical History Past Medical History: Cancer, GERD/Reflux Additional Past Medical History / Comment(s): Arnold Kiari Malformation, HSV type 2, Right breast cancer, diagnosed recently. History of Any Multi-Drug Resistant Organisms: None Reported Past Surgical History: Appendectomy, Breast Surgery, Hysterectomy Additional Past Surgical History / Comment(s): Brain surgery 2006, partial hysterectomy, hx. benign right breast needle biopsy. Past Anesthesia/Blood Transfusion Reactions: Motion Sickness, Postoperative Nausea & Vomiting (PONV) Past Psychological History: Anxiety Additional Psychological History / Comment(s): Situational anxiety. Past Alcohol Use History: Occasional Past Drug Use History: None Reported - Past Family History Mother Family Medical History: Cancer Additional Family Medical History / Comment(s): Cervical, Uterine & Colon Cancer. Medications and Allergies Home Medications Medication Instructions Recorded Confirmed Type Cholecalciferol [Vitamin D3 (25 5,000 unit PO DAILY 11/09/19 12/12/19 History Mcg = 1000 Iu)] Licorice Extract 1 ml PO DAILY 11/09/19 12/12/19 History Magnesium 200 mg PO DAILY 11/09/19 12/12/19 History Potassium Iodide [SSKI] 0 ml PO DAILY 11/09/19 12/12/19 History Vitamin B Complex 1 each PO DAILY 11/09/19 12/12/19 History Acetaminophen/Diphenhydramine 1 tab PO DAILY PRN 12/08/19 12/12/19 History [Tylenol PM 500-25mg] traMADol HCl [Ultram] 50 mg PO Q6H PRN #6 tab 12/08/19 12/12/19 Rx Allergies Allergy/AdvReac Type Severity Reaction Status Date / Time adhesive Allergy Rash/Hives Verified 12/12/19 11:12 amoxicillin Allergy Rash/Hives Verified 12/12/19 11:12 codeine Allergy Hallucinati Verified 12/12/19 11:12 ons erythromycin base Allergy Rash/Hives Verified 12/12/19 11:12 Iodinated Contrast Media Allergy Rash/Hives Verified 12/12/19 11:12 morphine Allergy Hallucinati Verified 12/12/19 11:12 ons Sulfa (Sulfonamide Allergy Rash/Hives Verified 12/12/19 11:12 Antibiotics) sulfamethoxazole Allergy Rash/Hives Verified 12/12/19 11:12 [From Bactrim] trimethoprim [From Bactrim] Allergy Rash/Hives Verified 12/12/19 11:12 Surgical - Exam Vital Signs Temp Pulse Resp BP Pulse Ox 97.2 F L 63 18 120/73 98 12/12/19 11:09 12/12/19 11:09 12/12/19 11:09 12/12/19 11:09 12/12/19 11:09 Physical exam: General: Well-developed, well-nourished HEENT: Normocephalic, sclerae nonicteric Abdomen: Nontender, nondistended Extremities: No edema Neuro: Alert and oriented Port-A-Cath incision clean and dry Assessment and Plan (1) Colon cancer screening Narrative/Plan: Will proceed with colonoscopy Current Visit: Yes Status: Acute Code(s): Z12.11 - ENCOUNTER FOR SCREENING FOR MALIGNANT NEOPLASM OF COLON SNOMED Code(s): 271552329
--- NOTE | 2019-12-12 12:22 | P.PCN ---
Date of Procedure: 12/12/19 Procedure(s) Performed: PREOPERATIVE DIAGNOSIS: Colon cancer screening, family history colon cancer mother POSTOPERATIVE DIAGNOSIS: Normal exam PROCEDURE: Colonoscopy ANESTHESIA: MAC SURGEON: Homero Davis M.D. SPECIMENS: None ENDOSCOPIC PROCEDURE: The patient was placed on the endoscopy table in the left decubitus position. The Olympus colonoscope was inserted into the anus and passed under direct visualization to the base of the cecum. The appendiceal orifice was visualized. From that point the scope was slowly withdrawn inspecting all surfaces carefully. There were no neoplastic inflammatory or polypoid lesions throughout the cecum, ascending, transverse, descending, sigmoid and rectum. There was no visible diverticulosis noted. Digital rectal examination was normal. The patient was taken to the recovery room in stable condition per anesthesia guidelines. RECOMMENDATIONS: Increase fiber. Follow-up colonoscopy 5 years.
[2019-12-12 12:24] VITALS: RESP 16
[2019-12-12 12:45] VITALS: BP 109/68; PULSE 64
== END 2019-12-12 13:17 ==
LOC: ORWHC2ENDO 10:13
PROVIDERS: ATTEND Surgery
DX: Z12.11 Encounter for screening for malignant neoplasm of colon (principal); Z80.0 Family history of malignant neoplasm of digestive organs; C50.911 Malignant neoplasm of unspecified site of right female breast; Q07.00 Arnold-Chiari syndrome without spina bifida or hydrocephalus; F41.9 Anxiety disorder, unspecified; Z90.49 Acquired absence of other specified parts of digestive tract; Z98.890 Other specified postprocedural states; Z90.710 Acquired absence of both cervix and uterus; Z80.49 Family history of malignant neoplasm of other genital organs; Z79.899 Other long term (current) drug therapy; Z88.5 Allergy status to narcotic agent; Z88.0 Allergy status to penicillin; Z88.2 Allergy status to sulfonamides; Z91.041 Radiographic dye allergy status
CPT/HCPCS: J2405; J2704; G0121

== ENCOUNTER → 2019-12-22 | Outpatient (CLI) | payer OTHER ==
--- NOTE | 2019-12-24 13:37 | ECHOF ---
Referral Reason:Z01.818 Chemo exposure MEASUREMENTS -------- HEIGHT: 160.0 cm WEIGHT: 81.6 kg BP: IVSd: 1.0 cm (0.6 - 1.1) LVIDd: 3.9 cm (3.9 - 5.3) LVPWd: 1.2 cm (0.6 - 1.1) IVSs: 1.2 cm LVIDs: 3.1 cm LVPWs: 1.1 cm LA Diam: 3.2 cm (2.7 - 3.8) RVIDd: 2.7 cm (< 3.3) LAESV Index (A-L): 16.18 ml/m Ao Diam: 1.9 cm (2.0 - 3.7) LA Diam: 2.9 cm (2.7 - 3.8) AV Cusp: 1.5 cm (1.5 - 2.6) EPSS: 0.2 cm MV E Jaime: 0.65 m/s MV DecT: 238 ms MV A Jaime: 0.81 m/s MV E/A Ratio: 0.80 RAP: 5.00 mmHg RVSP: 22.23 mmHg MV EF SLOPE: 88.26 mm/s (70 - 150) MV EXCURSION: 17.61 mm (> 18.000) FINDINGS -------- Sinus rhythm. This was a technically good study. The left ventricular size is normal. There is mild concentric left ventricular hypertrophy. Overa ll left ventricular systolic function is low-normal with, an EF between 50 - 55 %. The right ventricle is normal in size. The left atrial size is normal. The right atrial size is normal. There is mild aortic valve sclerosis. There is no evidence of aortic regurgitation. Mild mitral annular calcification present. Mild mitral regurgitation is present. Mild tricuspid regurgitation present. Right ventricular systolic pressure is normal at < 35 mmHg. There is no pulmonic regurgitation present. The aortic root size is normal. Echo free space represents a pericardial fat pad. CONCLUSIONS -------- 1. Sinus rhythm. 2. This was a technically good study. 3. The left ventricular size is normal. 4. There is mild concentric left ventricular hypertrophy. 5. Overall left ventricular systolic function is low-normal with, an EF between 50 - 55 %. 6. The right ventricle is normal in size. 7. The left atrial size is normal. 8. The right atrial size is normal. 9. There is mild aortic valve sclerosis. 10. Mild mitral annular calcification present. 11. Mild mitral regurgitation is present. 12. Mild tricuspid regurgitation present. 13. Right ventricular systolic pressure is normal at < 35 mmHg. 14. There is no pulmonic regurgitation present. 15. Echo free space represents a pericardial fat pad. ABSENCE MANAGEMENT CONSULTANT: Shaye Choi RDCS
== END | disposition home or self-care (01) ==
LOC: RADECHMAIN 13:51
PROVIDERS: ATTEND Internal Medicine Hematology & Oncology
DX: I08.3 Combined rheumatic disorders of mitral, aortic and tricuspid valves (principal)
CPT/HCPCS: 93306

== ENCOUNTER → 2019-12-26 | Outpatient (CLI) | payer OTHER ==
--- NOTE | 2019-12-26 14:42 | US ---
EXAMINATION TYPE: US thyroid st tissue head/neck DATE OF EXAM: 12/26/2019 COMPARISON: NONE CLINICAL HISTORY: E04.1 Nontoxic single thyroid nodule. Patient stated had PET scan at [facility] with possible cancerous nodule with her history of breast CA. GLAND SIZE: Right Lobe: 4.5 x 1.4 x 1.4 cm Overall Parenchyma: homogenous Left Lobe: 4.1 x 1.3 x 1.1 cm Overall Parenchyma: homogeneous Isthmus Thickness: 0.2 cm NODULES RIGHT: # of nodules measured on right: 2 1. 0.3 X 0.2 x 0.2 cm hypoechoic solid nodule at the mid pole with margins. This nodule is wide as is tall and shows no intranodular vascularity. 2. 0.3 X 0.2 x 0.2 cm isoechoic mixed nodule at the lower pole with well-defined margins. This nodu le is wide as is tall and shows no intranodular vascularity. LEFT: # of nodules measured on left: 3 1. 0.8 X 0.5 x 0.5 cm hypoechoic solid nodule at the upper medial pole with margins. This nodule i s wide as is tall and shows no intranodular vascularity. 2. 0.3 X 0.2 x 0.2 cm hypoechoic, complex cystic nodule at the mid pole with well-defined margins. This nodule is wide as is tall and shows intranodular vascularity. 3. 0.4 X 0.2 x 0.2 cm hypoechoic cystic nodule at the lower pole with well-defined margins. This no dule is wide as is tall and shows no intranodular vascularity. ISTHMUS: # of nodules measured in the isthmus: 0 Bilateral neck scanned: no evidence of lymphadenopathy. IMPRESSION: Nonspecific thyroid nodularity as discussed above.
== END | disposition home or self-care (01) ==
LOC: RADUSWWP 12:55
PROVIDERS: ATTEND Surgery
DX: E04.2 Nontoxic multinodular goiter (principal)
CPT/HCPCS: 76536

== ENCOUNTER 2019-12-30 12:34 | Inpatient (IN) | payer OTHER ==
--- NOTE | 2019-12-30 13:08 | ED ---
Chest Pain HPI - General Chief Complaint: Chest Pain Stated Complaint: chest pain Time Seen by Provider: 12/30/19 12:45 Source: patient, RN notes reviewed Mode of arrival: wheelchair Limitations: no limitations - History of Present Illness Initial Comments: This is a 54-year-old female with a history of right-sided breast cancer who currently getting chemotherapy with her last encounter for therapy 2 days ago who presents with complaints of retrosternal chest discomfort pressure like in nature with intermittent tightness. She states right now 7/10 severity. It does seem to get worse with deep breathing. No overt fevers chills nausea vomiting sweats. He does state additionally she's been having hot and cold flashes but believes is secondary to menopause as a subsequent upper quite a while. Just states she has a thyroid nodule which is believed to be either a second primary or metastases. She states that they're not sure of the thyroid o nce in the breast the breasts much of thyroid or takes a second primary. There is a family history of coronary artery disease with her dad. He does state the chemotherapy she is on his Adriamycin. MD Complaint: chest pain - Related Data Home Medications Medication Instructions Recorded Confirmed LORazepam [Ativan] 0.5 mg PO Q6H PRN 12/30/19 12/30/19 Lidocaine-Prilocaine Cream [Emla 1 applic TOPICAL ONCE PRN 12/30/19 12/30/19 Cream 2.5%/2.5%] OLANZapine [ZyPREXA] 5 mg PO DIRECTED@2100 12/30/19 12/30/19 Ondansetron [Zofran] 4 mg PO Q4H PRN 12/30/19 12/30/19 Pegfilgrastim [Neulasta] 6 mg SQ Q14D 12/30/19 12/30/19 dexAMETHasone [Hexadrol] 8 mg PO DIRECTED 12/30/19 12/30/19 traZODone HCL 50 - 100 mg PO HS PRN 12/30/19 12/30/19 valACYclovir [Valtrex] 500 mg PO BID 12/30/19 12/30/19 Allergies Allergy/AdvReac Type Severity Reaction Status Date / Time adhesive Allergy Rash/Hives Verified 12/30/19 16:27 amoxicillin Allergy Rash/Hives Verified 12/30/19 16:27 codeine Allergy Hallucinati Verified 12/30/19 16:27 ons erythromycin base Allergy Rash/Hives Verified 12/30/19 16:27 Iodinated Contrast Media Allergy Rash/Hives Verified 12/30/19 16:27 morphine Allergy Hallucinati Verified 12/30/19 16:27 ons Sulfa (Sulfonamide Allergy Rash/Hives Verified 12/30/19 16:27 Antibiotics) sulfamethoxazole Allergy Rash/Hives Verified 12/30/19 16:27 [From Bactrim] trimethoprim [From Bactrim] Allergy Rash/Hives Verified 12/30/19 16:27 Review of Systems ROS Statement: Those systems with pertinent positive or pertinent negative responses have been documented in the HPI. ROS Other: All systems not noted in ROS Statement are negative. Past Medical History Past Medical History: Cancer, GERD/Reflux Additional Past Medical History / Comment(s): Arnold Kiari Malformation, HSV type 2, Right breast cancer, diagnosed recently. History of Any Multi-Drug Resistant Organisms: None Reported Past Surgical History: Appendectomy, Breast Surgery, Hysterectomy Additional Past Surgical History / Comment(s): Brain surgery 2006, partial hyst erectomy, hx. benign right breast needle biopsy. Past Anesthesia/Blood Transfusion Reactions: Motion Sickness, Postoperative Nausea & Vomiting (PONV) Past Psychological History: No Psychological Hx Reported, Anxiety Smoking Status: Never smoker Past Alcohol Use History: Occasional Past Drug Use History: None Reported - Past Family History Mother Family Medical History: Cancer Additional Family Medical History / Comment(s): Cervical, Uterine & Colon Cancer. General Exam - General Exam Comments Initial Comments: This is a well-developed well-nourished awake alert oriented 3 female Limitations: no limitations General appearance: alert, anxious Head exam: Present: atraumatic, normocephalic, normal inspection Eye exam: Present: normal appearance, PERRL, EOMI. Absent: scleral icterus, conjunctival injection, periorbital swelling ENT exam: Present: normal exam, mucous membranes moist Neck exam: Present: normal inspection, full ROM. Absent: tenderness, meningismus, lymphadenopathy Respiratory exam: Present: normal lung sounds bilaterally, chest wall tenderness (Tenderness palpation over the costal sternal margin there is a port in her rig ht chest wall and the right). Absent: respiratory distress, wheezes, rales, rhonchi, stridor Cardiovascular Exam: Present: regular rate, normal rhythm, normal heart sounds. Absent: systolic murmur, diastolic murmur, rubs, gallop, clicks GI/Abdominal exam: Present: soft, normal bowel sounds. Absent: distended, tenderness, guarding, rebound, rigid Extremities exam: Present: normal inspection, full ROM, normal capillary refill. Absent: tenderness, pedal edema, joint swelling, calf tenderness Back exam: Present: normal inspection Neurological exam: Present: alert, oriented X3, CN II-XII intact Psychiatric exam: Present: normal affect, normal mood Skin exam: Present: warm, dry, intact, normal color. Absent: rash Course Vital Signs 12/30/19 12/30/19 12/30/19 12:36 13:31 13:37 Temperature 98.4 F Pulse Rate 78 96 73 Respiratory 18 16 18 Rate Blood Pressure 100/60 103/69 117/62 O2 Sat by Pulse 97 97 100 Oximetry 12/30/19 15:03 Temperature Pulse Rate 78 Respiratory 18 Rate Blood Pressure 105/78 O2 Sat by Pulse 99 Oximetry - Reevaluation(s) Reevaluation #1: 12/30/19 17:04 I did reevaluate patient several occasions she demonstrates no evidence of at this time fever she states her pain is somewhat improved however white blood cell count was markedly elevated. Chest Pain MDM - MDM I did review the imaging and report no acute findings. I did discuss case the patient as well as with Dr. Lugo. Patient does have a markedly elevated white blood cell count. He did have chest pain she'll be admitted for evaluation oncology will be consulted Disposition Clinical Impression: Chest pain, Breast cancer, Leukocytosis Disposition: ADMITTED IP TO THIS HOSP Condition: Fair Referrals: Kenneth Lugo MD [Primary Care Provider] - 1-2 days
[2019-12-30 13:37] LABS: ALT 79 U/L (4-34); AST 46 U/L (14-36); African American GFR (CKD) >90 (>60 ml/min/1.73 sqM); Albumin 4.2 g/dL (3.5-5.0); Alkaline Phosphatase 146 U/L (38-126); Anion Gap 7 mmol/L; Blood Urea Nitrogen 12 mg/dL (7-17); Calcium 9.5 mg/dL (8.4-10.2); Carbon Dioxide 25 mmol/L (22-30); Chloride 107 mmol/L (98-107); Creatine Kinase 44 U/L (30-135); Glucose 105 mg/dL (74-99); Magnesium 2.2 mg/dL (1.6-2.3); Non-African American GFR(CKD) >90 (>60 ml/min/1.73 sqM); Potassium 4.4 mmol/L (3.5-5.1); Sodium 139 mmol/L (137-145); Total Bilirubin 0.7 mg/dL (0.2-1.3); Total Protein 7.2 g/dL (6.3-8.2)
[2019-12-30 13:49] LABS: INR 0.9 (<1.2)
[2019-12-30 13:50] LABS: D-Dimer 0.32 mg/L FEU (<0.60); Prothrombin Time 9.4 sec (9.0-12.0)
[2019-12-30 13:58] LABS: Basophils # (A) 0.4 k/uL (0-0.2); Basophils % (A) 1 %; Eosinophils # (A) 0.2 k/uL (0-0.7); Eosinophils % (A) 1 %; HCT 37.6 % (34.0-46.0); HGB 12.2 gm/dL (11.4-16.0); Lymphocytes # (A) 0.5 k/uL (1.0-4.8); Lymphocytes % (A) 1 %; MCH 28.4 pg (25.0-35.0); MCHC 32.4 g/dL (31.0-37.0); MCV 87.7 fL (80.0-100.0); Mean Platelet Volume 7.8; Monocytes # (A) 0.8 k/uL (0-1.0); Monocytes % (A) 2 %; Neutrophils % (A) 96 %; Platelet Count 402 k/uL (150-450); RBC 4.29 m/uL (3.80-5.40); RDW 14.7 % (11.5-15.5); WBC 49.8 k/uL (3.8-10.6)
[2019-12-30 14:10] LABS: Neutrophils # (A) 47.7 k/uL (1.3-7.7)
[2019-12-30 14:13] LABS: Partial Thromboplastin Time 19.8 sec (22.0-30.0)
[2019-12-30] MEDS ORDERED: KETOROLAC 30 MG/ML 1 ML VIAL IVP STA (14:13)
--- NOTE | 2019-12-30 14:24 | XR ---
EXAMINATION TYPE: XR chest 2V DATE OF EXAM: 12/30/2019 HISTORY: Chest Pain. REFERENCE: Previous study dated 12/08/2019. FINDINGS: The right internal jugular catheter in place with its tip in the superior vena cava. The lungs are clear. Pleural space are clear. Heart size upper limits of normal. IMPRESSION: NO ACTIVE INTRATHORACIC DISEASE.
[2019-12-30] MEDS ORDERED: NALOXONE 0.4 MG/ML 1 ML VIAL IV PRN (17:05)
[2019-12-30] MEDS ORDERED: LORazepam 0.5 MG TAB PO PRN (17:08)
[2019-12-30] MEDS ORDERED: traZODone HCL 50 MG TAB PO PRN (17:08)
[2019-12-30] MEDS ORDERED: LIDOCAINE-PRILOCAINE 2.5-2.5% CREAM 5 GM TUBE TOPICAL PRN (17:08)
[2019-12-30] MEDS ORDERED: ONDANSETRON 4 MG TAB PO PRN (17:08)
[2019-12-30] MEDS ORDERED: CEFEPIME 1 GM in SODIUM CHLORIDE 0.9% 50 ML IVPB STA (17:10)
--- NOTE | 2019-12-30 17:15 | ED ---
Medical Decision Making - Lab Data Result diagrams: 12/30/19 13:17 12/30/19 13:17 Lab Results 12/30/19 12/30/19 12/30/19 Range/Units 13:17 13:17 13:17 WBC 49.8 H (3.8-10.6) k/uL RBC 4.29 (3.80-5.40) m/uL Hgb 12.2 (11.4-16.0) gm/dL Hct 37.6 (34.0-46.0) % MCV 87.7 (80.0-100.0) fL MCH 28.4 (25.0-35.0) pg MCHC 32.4 (31.0-37.0) g/dL RDW 14.7 (11.5-15.5) % Plt Count 402 (150-450) k/uL Neutrophils % 96 % Lymphocytes % 1 % Monocytes % 2 % Eosinophils % 1 % Basophils % 1 % Neutrophils # 47.7 H (1.3-7.7) k/uL Lymphocytes # 0.5 L (1.0-4.8) k/uL Monocytes # 0.8 (0-1.0) k/uL Eosinophils # 0.2 (0-0.7) k/uL Basophils # 0.4 H (0-0.2) k/uL PT 9.4 (9.0-12.0) sec INR 0.9 (<1.2) APTT 19.8 L (22.0-30.0) sec D-Dimer 0.32 (<0.60) mg/L FEU Sodium 139 (137-145) mmol/L Potassium 4.4 (3.5-5.1) mmol/L Chloride 107 (98-107) mmol/L Carbon Dioxide 25 (22-30) mmol/L Anion Gap 7 mmol/L BUN 12 (7-17) mg/dL Creatinine 0.55 (0.52-1.04) mg/dL Est GFR (CKD-EPI)AfAm >90 (>60 ml/min/1.73 sqM) Est GFR (CKD-EPI)NonAf >90 (>60 ml/min/1.73 sqM) Glucose 105 H (74-99) mg/dL Calcium 9.5 (8.4-10.2) mg/dL Magnesium 2.2 (1.6-2.3) mg/dL Total Bilirubin 0.7 (0.2-1.3) mg/dL AST 46 H (14-36) U/L ALT 79 H (4-34) U/L Alkaline Phosphatase 146 H (38-126) U/L Creatine Kinase 44 (30-135) U/L Troponin I (0.000-0.034) ng/mL NT-Pro-B Natriuret Pep pg/mL Total Protein 7.2 (6.3-8.2) g/dL Albumin 4.2 (3.5-5.0) g/dL 12/30/19 12/30/19 Range/Units 13:17 13:17 WBC (3.8-10.6) k/uL RBC (3.80-5.40) m/uL Hgb (11.4-16.0) gm/dL Hct (34.0-46.0) % MCV (80.0-100.0) fL MCH (25.0-35.0) pg MCHC (31.0-37.0) g/dL RDW (11.5-15.5) % Plt Count (150-450) k/uL Neutrophils % % Lymphocytes % % Monocytes % % Eosinophils % % Basophils % % Neutrophils # (1.3-7.7) k/uL Lymphocytes # (1.0-4.8) k/uL Monocytes # (0-1.0) k/uL Eosinophils # (0-0.7) k/uL Basophils # (0-0.2) k/uL PT (9.0-12.0) sec INR (<1.2) APTT (22.0-30.0) sec D-Dimer (<0.60) mg/L FEU Sodium (137-145) mmol/L Potassium (3.5-5.1) mmol/L Chloride (98-107) mmol/L Carbon Dioxide (22-30) mmol/L Anion Gap mmol/L BUN (7-17) mg/dL Creatinine (0.52-1.04) mg/dL Est GFR (CKD-EPI)AfAm (>60 ml/min/1.73 sqM) Est GFR (CKD-EPI)NonAf (>60 ml/min/1.73 sqM) Glucose (74-99) mg/dL Calcium (8.4-10.2) mg/dL Magnesium (1.6-2.3) mg/dL Total Bilirubin (0.2-1.3) mg/dL AST (14-36) U/L ALT (4-34) U/L Alkaline Phosphatase (38-126) U/L Creatine Kinase (30-135) U/L Troponin I <0.012 (0.000-0.034) ng/mL NT-Pro-B Natriuret Pep 189 pg/mL Total Protein (6.3-8.2) g/dL Albumin (3.5-5.0) g/dL Disposition Clinical Impression: Chest pain, Breast cancer, Leukocytosis, Hypotensive episode Disposition: ADMITTED IP TO THIS HOSP Condition: Fair Referrals: Kenneth Lugo MD [Primary Care Provider] - 1-2 days
[2019-12-30] MEDS: SODIUM CHLORIDE 0.9% 1,000 ML IV SCH (17:40)
[2019-12-30] MEDS: ONDANSETRON 4 MG/2 ML VIAL IVP PRN (19:50)
[2019-12-30] MEDS ORDERED: OLANZapine 5 MG TAB PO SCH (21:00)
[2019-12-30] MEDS: valACYclovir 500 MG TAB PO SCH (23:01)
[2019-12-30] MEDS: ACETAMINOPHEN TAB 325 MG TAB PO PRN (23:11)
[2019-12-30 23:43] LABS: Appearance,Urine Clear (Clear); Bilirubin,Urine Negative (Negative); Blood,Urine Small (Negative); Color,Urine Yellow; Glucose,Urine (UA) 2+ (Negative); Hyaline Casts,Urine 1 /lpf (0-2); Ketones,Urine Trace (Negative); Leukocyte Esterase,Urine Negative (Negative); Mucus,Urine Few /hpf; Nitrite,Urine Negative (Negative); PH, Urine 5.5 (5.0-8.0); Protein,Urine Negative (Negative); RBC,Urine 6 /hpf (0-5); Specific Gravity,Urine 1.028 (1.001-1.035); Squamous Epithelial Cell,Urine 2 /hpf (0-4); Urobilinogen,Urine <2.0 mg/dL (<2.0); WBC,Urine 1 /hpf (0-5)
[2019-12-31] MEDS: ONDANSETRON 4 MG/2 ML VIAL IVP PRN ×2 (05:43→17:44)
[2019-12-31] MEDS: valACYclovir 500 MG TAB PO SCH ×2 (10:58→20:06)
[2019-12-31] MEDS: dexAMETHasone 4 MG TAB PO SCH (10:59)
[2019-12-31] MEDS: SODIUM CHLORIDE 0.9% 1,000 ML IV SCH ×2 (10:59→18:38)
[2019-12-31] MEDS ORDERED: CALCIUM CARBONATE 500 MG CHEWABLE PO PRN (13:36)
[2019-12-31] MEDS ORDERED: PHENAZOPYRIDINE 100 MG TAB PO STA (13:38)
--- NOTE | 2019-12-31 13:52 | P.CONS ---
History of Present Illness - Reason for Consult Consult date: 12/31/19 leukocytosis, breast cancer Requesting physician: Juan Carlos Stephens - Chief Complaint chest pain, hypotension - History of Present Illness Ms. Cotter is a very pleasant 54-year-old black female was recently diagnosed with right breast cancer. In mid-September patient noticed a right breast lump, tender and burning in nature. This led to a mammogram on 10/25 with an abnormality noted, ultrasound 10/26 revealed a 2.3 x 2.4 cm mass at the 12 o'clock position. Patient had a prior biopsy in the right breast but, this was not in the same location. No other breast changes were notable. 11/14 patient had a biopsy with Dr. Lui Stephens, pathology revealing invasive carcinoma, grade 3, ER/NE/HER-2/tutu by IHC negative, HER-2 by Fish negative as well. She had a port placed on 12/07, she had her first colonoscopy on 12/11. Currently she is status post 2 cycles of dose dense neoadjuvant AC with G-CSF. Patient came to the emergency department with complaints of pain, starts middle of the abdomen pain, rising up through the center of the chest and radiating to both shoulders. When she came to the emergency department a dose of toradol resolved the pain, she was pretty hypotensive though, she was admitted for further workup and evaluation. Currently patient is resting comfortably, she is tolerating oral intake, no fevers, nausea is pretty persistent but no vomiting, shortness of breath, cough, abdominal pain or cramping, she is having pain at the end of urination, urgency, she was recently treated for urinary tract infection, bowel movements are consistent and normal for her. No swelling in the lower extremities. She is experiencing insomnia, denies depression. Review of Systems 14 point review of systems is negative except as stated in HPI Past Medical History Past Medical History: Cancer, GERD/Reflux Additional Past Medical History / Comment(s): Arnold Kiari Malformation, HSV type 2, Right breast cancer, diagnosed recently. History of Any Multi-Drug Resistant Organisms: None Reported Past Surgical History: Appendectomy, Breast Surgery, Hysterectomy Additional Past Surgical History / Comment(s): Brain surgery 2007, partial hysterectomy, hx. benign right breast needle biopsy. Past Anesthesia/Blood Transfusion Reactions: Motion Sickness, Postoperative Nausea & Vomiting (PONV) Past Psychological History: No Psychological Hx Reported, Anxiety Additional Psychological History / Comment(s): Situational anxiety. Smoking Status: Never smoker Past Alcohol Use History: Occasional Past Drug Use History: None Reported - Past Family History Mother Family Medical History: Cancer Additional Family Medical History / Comment(s): Cervical, Uterine & Colon Cancer. Medications and Allergies Home Medications Medication Instructions Recorded Confirmed Type LORazepam [Ativan] 0.5 mg PO Q6H PRN 12/30/19 12/30/19 History Lidocaine-Prilocaine Cream [Emla 1 applic TOPICAL ONCE PRN 12/30/19 12/30/19 History Cream 2.5%/2.5%] OLANZapine [ZyPREXA] 5 mg PO DIRECTED@2100 12/30/19 12/30/19 History Ondansetron [Zofran] 4 mg PO Q4H PRN 12/30/19 12/30/19 History Pegfilgrastim [Neulasta] 6 mg SQ Q14D 12/30/19 12/30/19 History dexAMETHasone [Hexadrol] 8 mg PO DIRECTED 12/30/19 12/30/19 History traZODone HCL 50 - 100 mg PO HS PRN 12/30/19 12/30/19 History valACYclovir [Valtrex] 500 mg PO BID 12/30/19 12/30/19 History Allergies Allergy/AdvReac Type Severity Reaction Status Date / Time adhesive Allergy Rash/Hives Verified 12/30/19 16:27 amoxicillin Allergy Rash/Hives Verified 12/30/19 16:27 codeine Allergy Hallucinati Verified 12/30/19 16:27 ons erythromycin base Allergy Rash/Hives Verified 12/30/19 16:27 Iodinated Contrast Media Allergy Rash/Hives Verified 12/30/19 16:27 morphine Allergy Hallucinati Verified 12/30/19 16:27 ons Sulfa (Sulfonamide Allergy Rash/Hives Verified 12/30/19 16:27 Antibiotics) sulfamethoxazole Allergy Rash/Hives Verified 12/30/19 16:27 [From Bactrim] trimethoprim [From Bactrim] Allergy Rash/Hives Verified 12/30/19 16:27 Physical Exam Vitals: Vital Signs Temp Pulse Pulse Resp BP BP Pulse Ox 12/31/19 12:08 98 18 12/31/19 07:30 97.6 F 98 18 112/64 100 12/31/19 04:00 97.9 F 79 18 110/64 100 12/31/19 00:00 97.6 F 104 H 18 112/57 97 12/30/19 20:00 98.7 F 81 17 102/53 96 12/30/19 18:55 98.4 F 87 18 93/51 97 12/30/19 18:13 87 18 93/51 97 12/30/19 15:03 78 18 105/78 99 12/30/19 13:37 73 18 117/62 100 12/30/19 13:31 96 16 103/69 97 Intake and Output 12/30/19 12/31/19 12/31/19 22:59 06:59 14:59 Intake Total 480 970 Output Total 300 Balance 180 970 Intake: IV 10 Invasive Line 1 10 Intake, IV Titration 480 Amount Sodium Chloride 0.9% 1, 480 000 ml @ 80 mls/hr IV . [id number] [facility] Rx#:[id number] Oral 960 Output: Urine 300 Other: Voiding Method Toilet Toilet Toilet # Voids 1 Weight 81.647 kg 82.3 kg - Constitutional General appearance: average body habitus, cooperative, no acute distress - EENT Eyes: anicteric sclerae, EOMI ENT: hearing grossly normal, normal oropharynx (Coated tongue) - Neck Neck: no lymphadenopathy - Respiratory Respiratory: bilateral: CTA - Cardiovascular Rhythm: regular Heart sounds: normal: S1, S2 Abnormal Heart Sounds: no systolic murmur, no diastolic murmur, no rub, no S3 Gallop, no S4 Gallop, no click, no other leg Peripheral Edema: bilateral: None - Gastrointestinal General gastrointestinal: no absent bowel sounds, no decreased bowel sounds, no distended, no hepatomegaly, no hyperactive bowel sounds, normal bowel sounds, no organomegaly, no rigid, no scaphoid, soft, no splenomegaly, no tenderness, no umbilical hernia, no ventral hernia - Integumentary Integumentary: normal - Neurologic Neurologic: CNII-XII intact - Musculoskeletal Musculoskeletal: strength equal bilaterally - Psychiatric Psychiatric: A&O x's 3, appropriate affect, intact judgment & insight Results CBC & Chem 7: 12/30/19 13:17 12/30/19 13:17 Labs: Abnormal Lab Results - Last 24 Hours (Table) 12/30/19 12/30/19 12/30/19 Range/Units 13:17 13:17 13:17 WBC 49.8 H (3.8-10.6) k/uL Neutrophils # 47.7 H (1.3-7.7) k/uL Lymphocytes # 0.5 L (1.0-4.8) k/uL Basophils # 0.4 H (0-0.2) k/uL APTT 19.8 L (22.0-30.0) sec Glucose 105 H (74-99) mg/dL AST 46 H (14-36) U/L ALT 79 H (4-34) U/L Alkaline Phosphatase 146 H (38-126) U/L Urine Glucose (UA) (Negative) Urine Ketones (Negative) Urine Blood (Negative) Urine RBC (0-5) /hpf Urine Mucus (None) /hpf 12/30/19 Range/Units 23:15 WBC (3.8-10.6) k/uL Neutrophils # (1.3-7.7) k/uL Lymphocytes # (1.0-4.8) k/uL Basophils # (0-0.2) k/uL APTT (22.0-30.0) sec Glucose (74-99) mg/dL AST (14-36) U/L ALT (4-34) U/L Alkaline Phosphatase (38-126) U/L Urine Glucose (UA) 2+ H (Negative) Urine Ketones Trace H (Negative) Urine Blood Small H (Negative) Urine RBC 6 H (0-5) /hpf Urine Mucus Few H (None) /hpf Comments: EKG reviewed Echo from 11/30 in 12/21 reviewed Chest x-ray: report reviewed Assessment and Plan (1) Hypotensive episode Narrative/Plan: Patient's blood pressure has been stable after receiving some hydration. Unclear what may have caused the episodes. Current Visit: Yes Status: Acute Priority: High Code(s): I95.9 - HYPOTENSION, UNSPECIFIED SNOMED Code(s): 23627213 (2) Leukocytosis Narrative/Plan: Secondary to G-CSF. Her white count will come back down into a normal range the further she gets from treatment. Her dose dense regimen requires G-CSF support Current Visit: Yes Status: Acute Priority: Low Code(s): D72.829 - ELEVATED WHITE BLOOD CELL COUNT, UNSPECIFIED SNOMED Code(s): 914043042 (3) Breast cancer, right Narrative/Plan: Patient is status post 2nd cycle of neoadjuvant AC. She's had some mild changes in her left ventricular ejection fraction. 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 Current Visit: Yes Status: Acute Priority: High Code(s): C50.911 - MALIGNANT NEOPLASM OF UNSP SITE OF RIGHT FEMALE BREAST SNOMED Code(s): 769798546 (4) Cystitis Narrative/Plan: Axis to be related to the Cytoxan. Patient is already had a course of antibiotics, is no evidence to suggest infection. Going to give a dose of Pyridium and recheck the patient's symptoms in the morning. Current Visit: Yes Status: Acute Priority: High Code(s): N30.90 - CYSTITIS, UNSPECIFIED WITHOUT HEMATURIA SNOMED Code(s): 81894267 (5) Insomnia Narrative/Plan: Patient does get some relief with the Zyprexa. This will be scheduled to be given every night at bedtime Current Visit: Yes Status: Acute Priority: Medium Code(s): G47.00 - INSOMNIA, UNSPECIFIED SNOMED Code(s): 633879844 Plan: For the patient's epigastric pain radiating up into the chest, have ordered some Tums when necessary, have asked her to try it when she experiences these symptoms. Changes in patient's ECHO to be discussed with primary Oncologist.
[2019-12-31] MEDS: ACETAMINOPHEN TAB 325 MG TAB PO PRN (16:29)
[2019-12-31 18:51] LABS: Appearance,Urine Clear (Clear); Bacteria,Urine Rare /hpf; Bilirubin,Urine Negative (Negative); Blood,Urine Small (Negative); Color,Urine Light Yellow; Glucose,Urine (UA) Negative (Negative); Ketones,Urine Negative (Negative); Leukocyte Esterase,Urine Negative (Negative); Mucus,Urine Rare /hpf; Nitrite,Urine Negative (Negative); PH, Urine 6.5 (5.0-8.0); Protein,Urine Negative (Negative); RBC,Urine 4 /hpf (0-5); Specific Gravity,Urine 1.009 (1.001-1.035); Squamous Epithelial Cell,Urine <1 /hpf (0-4); Urobilinogen,Urine <2.0 mg/dL (<2.0); WBC,Urine <1 /hpf (0-5)
[2019-12-31] MEDS: OLANZapine 5 MG TAB PO SCH (20:06)
--- NOTE | 2020-01-01 01:41 | HP ---
HISTORY AND PHYSICAL CHIEF COMPLAINT: Low anterior chest pain. HISTORY OF PRESENT ILLNESS: This is the first admission in some time for this 54-year-old female who recently was diagnosed with an advanced carcinoma of the right breast. She apparently has positive nodes. She has been presented to the tumor board and she has been started on chemotherapy. I believe she is on Adriamycin and Cytoxan, but I am not sure. Apparently the plan is that she will go through a course or 2 of chemotherapy followed by radiation and mastectomy in April. Before coming in she suddenly noticed a fairly sharp and intense pain in the lower anterior sternal area. It did not seem to be in the stomach. She thought it might be GERD and she drank something, but it did not help and then she came to the emergency room. Cardiac studies were unremarkable. D-dimer was normal. She was tender in the lower anterior chest wall. She stated the pain radiated up into the right shoulder. She was not diaphoretic or short of breath and she was not nauseated and she did not vomit. In the emergency room, her white count was 40,000. Last week she had a urinary tract infection which was treated with Levaquin and she is complaining a little bit of low back pain. She has never had any kidney problems. REVIEW OF SYSTEMS: She has had no headaches, neurologic problems, change in vision or the hearing, cough, hemoptysis, sputum production, pleurisy, abdominal pain, ulcer disease, GERD, hiatal hernia, nausea, vomiting, hematemesis, melena, hematochezia, jaundice, hepatitis, cirrhosis, renal failure, dysuria, frequency, incontinence. Apparently she did have some hematuria with the urinary tract infection. She is not diabetic. Past medical history, family history and personal and social histories are otherwise unremarkable or noncontributory. She does not smoke or drink. PHYSICAL EXAMINATION: In the emergency room, her blood pressure was 100/60 with a pulse of 78, respirations 18 and she is afebrile. In general, she appeared to be well developed, well nourished, no acute distress. Skin color is normal. Skin is warm, dry. Lymph nodes not enlarged. Head, ears, eyes, nose, mouth, and throat are normal. Neck veins not distended. Carotids are normal. Chest is clear. Cardiac exam is normal. No murmurs or extra sounds. There are no rubs. She was a little bit tender over the anterior chest in the midline above the sternum and down toward the xiphoid process. The abdomen is slightly protuberant, soft, nontender without visceromegaly masses. Bowel sounds are present. Extremities are normal. Neurologically, she is intact. She is admitted to the hospital with diagnoses: 1. Atypical anterior chest pain. 2. Possible costochondritis. 3. Carcinoma of the right breast. 4. Recent urinary tract infection. 5. Back pain. 6. Leukocytosis. PLAN: 1. Bed rest. 2. IV fluids. 3. Consult with Oncology. 4. Ultrasound of the kidneys. MMODL / IJN: [id number] /
--- NOTE | 2020-01-01 01:57 | PN ---
PROGRESS NOTE CHIEF COMPLAINT: Anterior chest pain and leukocytosis. HISTORY OF PRESENT ILLNESS: This lady is still complaining of some lower anterior midline chest pain where she is slightly tender. She has had no fever, chills, shortness of breath, cough, hemoptysis, etc. PHYSICAL EXAMINATION: Head ears, eyes, nose, mouth, and throat are normal. Lymph nodes not enlarged. Chest is clear. Cardiac exam is normal. No murmurs. Abdomen is soft and nontender. Extremities are normal. Neurologically, she is intact. IMPRESSION: 1. Anterior chest wall pain. 2. Carcinoma of the right breast. 3. Leukocytosis. PLAN: Continue with current program and await consultation from Hematology/Oncology. MMODL / IJN: [id number] /
[2020-01-01] MEDS: ACETAMINOPHEN TAB 325 MG TAB PO PRN ×2 (04:11→15:34)
[2020-01-01] MEDS: ONDANSETRON 4 MG/2 ML VIAL IVP PRN (07:35)
--- NOTE | 2020-01-01 08:13 | US ---
EXAMINATION TYPE: US renals and bladder DATE OF EXAM: 01/01/2020 COMPARISON: NONE CLINICAL HISTORY: ELEVATED WBC, FLANK PAIN, . Pain EXAM MEASUREMENTS: Right Kidney: 10.2 x 3.7 x 3.7 cm Left Kidney: 10.7 x 5.2 x 3.7 cm Right Kidney: wnl Left Kidney: wnl Bladder: wnl Bilateral Jets seen: Yes There is no evidence for hydronephrosis at this point in time. No nephrolithiasis is seen. No thania s are identified. The urinary bladder is not greatly distended. Bilateral ureteral jets are seen. IMPRESSION: Unremarkable study.
[2020-01-01 08:26] LABS: Basophils # (A) 0.1 k/uL (0-0.2); Basophils % (A) 1 %; Eosinophils % (A) 0 %; HCT 35.4 % (34.0-46.0); HGB 11.2 gm/dL (11.4-16.0); Lymphocytes # (A) 0.6 k/uL (1.0-4.8); Lymphocytes % (A) 2 %; MCH 28.2 pg (25.0-35.0); MCHC 31.6 g/dL (31.0-37.0); MCV 89.2 fL (80.0-100.0); Mean Platelet Volume 7.7; Monocytes # (A) 0.5 k/uL (0-1.0); Monocytes % (A) 2 %; Neutrophils # (A) 27.2 k/uL (1.3-7.7); Neutrophils % (A) 96 %; Platelet Count 337 k/uL (150-450); RBC 3.97 m/uL (3.80-5.40); RDW 14.4 % (11.5-15.5); WBC 28.5 k/uL (3.8-10.6)
[2020-01-01] MEDS: dexAMETHasone 4 MG TAB PO SCH (08:53)
[2020-01-01] MEDS: valACYclovir 500 MG TAB PO SCH ×2 (08:54→20:08)
[2020-01-01] MEDS: SODIUM CHLORIDE 0.9% 1,000 ML IV SCH ×2 (09:01→18:48)
--- NOTE | 2020-01-01 11:25 | P.CRDCN ---
History of Present Illness Consult date: 01/01/20 Chief complaint: Chest pain History of present illness: This is a very pleasant 54-year-old female patient with recently diagnosed as of breast cancer on the right side and also she does have significant family history of coronary artery disease involving her father presented to the hospital complaining of chest discomfort. The patient was diagnosed recently with breast cancer and currently she is on any chemotherapy. She was in her usual state of health until yesterday when she started experiencing discomfort in the lower chest in the middle with some radiation to the neck. No radiation to the arms or shoulders. No associated symptoms of shortness of breath, sweating, dizziness, heart racing, or syncope. The patient stated that she does have mild ongoing chest discomfort at this point. The EKG showed sinus rhythm without any significant ST or T-wave abnormalities. The cardiac enzymes were checked and came in to be unremarkable. The patient was diagnosed recently after she was started on chemotherapy with UTI and she was on antibiotic. She still having some urinary symptoms like dysuria and incontinenc e until this moment. Please note that interim before, her WBC was elevated when she presented to the hospital and has been trending down. Past Medical History Past Medical History: Cancer, GERD/Reflux Additional Past Medical History / Comment(s): Arnold Kiari Malformation, HSV type 2, Right breast cancer, diagnosed recently. History of Any Multi-Drug Resistant Organisms: None Reported Past Surgical History: Appendectomy, Breast Surgery, Hysterectomy Additional Past Surgical History / Comment(s): Brain surgery 2006, partial hysterectomy, hx. benign right breast needle biopsy. Past Anesthesia/Blood Transfusion Reactions: Motion Sickness, Postoperative Nausea & Vomiting (PONV) Past Psychological History: No Psychological Hx Reported, Anxiety Additional Psychological History / Comment(s): Situational anxiety. Smoking Status: Never smoker Past Alcohol Use History: Occasional Past Drug Use History: None Reported - Past Family History Mother Family Medical History: Cancer Additional Family Medical History / Comment(s): Cervical, Uterine & Colon Cancer. Medications and Allergies Home Medications Medication Instructions Recorded Confirmed Type LORazepam [Ativan] 0.5 mg PO Q6H PRN 12/30/19 12/30/19 History Lidocaine-Prilocaine Cream [Emla 1 applic TOPICAL ONCE PRN 12/30/19 12/30/19 History Cream 2.5%/2.5%] OLANZapine [ZyPREXA] 5 mg PO DIRECTED@2100 12/30/19 12/30/19 History Ondansetron [Zofran] 4 mg PO Q4H PRN 12/30/19 12/30/19 History Pegfilgrastim [Neulasta] 6 mg SQ Q14D 12/30/19 12/30/19 History dexAMETHasone [Hexadrol] 8 mg PO DIRECTED 12/30/19 12/30/19 History traZODone HCL 50 - 100 mg PO HS PRN 12/30/19 12/30/19 History valACYclovir [Valtrex] 500 mg PO BID 12/30/19 12/30/19 History Allergies Allergy/AdvReac Type Severity Reaction Status Date / Time adhesive Allergy Rash/Hives Verified 12/30/19 16:27 amoxicillin Allergy Rash/Hives Verified 12/30/19 16:27 codeine Allergy Hallucinati Verified 12/30/19 16:27 ons erythromycin base Allergy Rash/Hives Verified 12/30/19 16:27 Iodinated Contrast Media Allergy Rash/Hives Verified 12/30/19 16:27 morphine Allergy Hallucinati Verified 12/30/19 16:27 ons Sulfa (Sulfonamide Allergy Rash/Hives Verified 12/30/19 16:27 Antibiotics) sulfamethoxazole Allergy Rash/Hives Verified 12/30/19 16:27 [From Bactrim] trimethoprim [From Bactrim] Allergy Rash/Hives Verified 12/30/19 16:27 Physical Exam Vitals: Vital Signs Temp Pulse Resp BP Pulse Ox 01/01/20 08:54 98.3 F 83 16 106/66 99 01/01/20 04:00 97.9 F 92 16 109/55 97 01/01/20 00:00 98.1 F 91 16 118/56 96 12/31/19 19:55 97.6 F 82 17 129/56 97 12/31/19 16:25 97.6 F 83 18 110/55 95 12/31/19 12:08 98.7 F 87 18 98/56 100 Intake and Output 12/31/19 01/01/20 01/01/20 22:59 06:59 14:59 Intake Total 130 1080 Output Total 200 500 350 Balance -70 -500 730 Intake: IV 10 Invasive Line 1 10 Intake, IV Titration 960 Amount Sodium Chloride 0.9% 1, 960 000 ml @ 80 mls/hr IV . [id number] [facility] Rx#:[id number] Oral 120 120 Output: Urine 200 500 350 Other: Voiding Method Toilet Toilet Toilet # Voids 1 Weight 83 kg - Constitutional General appearance: no acute distress - Respiratory Respiratory: bilateral: CTA - Cardiovascular Rhythm: regular Heart sounds: normal: S1, S2 Results 01/01/20 08:02 12/30/19 13:17 CBC 01/01/20 Range/Units 08:02 WBC 28.5 H (3.8-10.6) k/uL RBC 3.97 (3.80-5.40) m/uL Hgb 11.2 L (11.4-16.0) gm/dL Hct 35.4 (34.0-46.0) % Plt Count 337 (150-450) k/uL Current Medications Generic Name Dose Route Start Last Admin Trade Name Freq PRN Reason Stop Dose Admin Acetaminophen 650 mg 12/30/19 17:05 01/01/20 04:11 Tylenol Tab PO 650 mg Q6HR PRN Administration Mild Pain or Fever > 100.5 Calcium Carbonate/Glycine 500 mg 12/31/19 13:36 Tums PO QID PRN Heartburn Sodium Chloride 1,000 mls @ 80 mls/hr 12/30/19 17:15 01/01/20 09:01 Saline 0.9% IV 80 mls/hr .[id number] [facility] Administration Lidocaine/Prilocaine 1 applic 12/30/19 17:08 Emla Cream 2.5%/2.5% TOPICAL ONCE PRN PORT ACCESS Lorazepam 0.5 mg 12/30/19 17:08 Ativan PO Q6H PRN Anxiety Naloxone HCl 0.2 mg 12/30/19 17:05 Narcan IV Q2M PRN Opioid Reversal Non-Formulary Medication 6 mg 01/12/20 09:00 Pegfilgrastim SQ Q14D [facility] Olanzapine 5 mg 12/31/19 21:00 12/31/19 20:06 Zyprexa PO 5 mg HS [facility] Administration Ondansetron HCl 4 mg 12/30/19 17:05 01/01/20 07:35 Zofran IVP 4 mg Q8HR PRN Administration Nausea And Vomiting Ondansetron HCl 4 mg 12/30/19 17:08 Zofran PO Q4H PRN Nausea And Vomiting Trazodone HCl 50 mg 12/30/19 17:08 Desyrel PO HS PRN Insomnia Valacyclovir HCl 500 mg 12/30/19 21:00 01/01/20 08:54 Valtrex PO 500 mg BID [facility] Administration Intake and Output 12/31/19 01/01/20 01/01/20 22:59 06:59 14:59 Intake Total 130 1080 Output Total 200 500 350 Balance -70 -500 730 Intake: IV 10 Invasive Line 1 10 Intake, IV Titration 960 Amount Sodium Chloride 0.9% 1, 960 000 ml @ 80 mls/hr IV . [id number] [facility] Rx#:[id number] Oral 120 120 Output: Urine 200 500 350 Other: Voiding Method Toilet Toilet Toilet # Voids 1 Weight 83 kg 01/01/20 08:02 12/30/19 13:17 Assessment and Plan Assessment: Assessment #1 atypical chest discomfort #2 significant family history of CAD #3 urinary tract infection #4% the diagnosis of breast cancer Plan #1 acute coronary event was ruled out. The troponin is unremarkable as well as the EKG #2 I recommended the patient to undergo a stress test to rule out severe underlying coronary artery disease #3 we'll follow-up with a WBC tomorrow if is trending down I will schedule the patient to undergo myocardial perfusion imaging stress test #4 recent echo showed normal function without significant valvular abnormalities #5 follow-up with the patient
[2020-01-01 12:56] LABS: Appearance,Urine Clear (Clear); Bilirubin,Urine Negative (Negative); Blood,Urine Small (Negative); Color,Urine Yellow; Glucose,Urine (UA) Negative (Negative); Ketones,Urine Negative (Negative); Leukocyte Esterase,Urine Negative (Negative); Nitrite,Urine Negative (Negative); Protein,Urine Negative (Negative); RBC,Urine 2 /hpf (0-5); Specific Gravity,Urine 1.011 (1.001-1.035); Urobilinogen,Urine <2.0 mg/dL (<2.0); WBC,Urine <1 /hpf (0-5)
--- NOTE | 2020-01-01 15:00 | P.PN ---
Subjective Progress Note Date: 01/01/20 Principal diagnosis: Chest pain, leukocytosis In f/u today pt states her dysuria is less, foul odor with urination this am though. She is still having the epigastric/substernal pain, ECHO did show a decrease in LVEF, she is having stress test today. She did get some rest, naus ea is mild. No other c/o. Objective - Vital Signs Vital signs: Vital Signs Temp 97.0 F L 01/01/20 11:20 Pulse 69 01/01/20 11:20 Resp 18 01/01/20 11:20 BP 104/66 01/01/20 11:20 Pulse Ox 100 01/01/20 11:20 Intake & Output 12/31/19 01/01/20 01/01/20 18:59 06:59 18:59 Intake Total 1100 1200 Output Total 200 500 350 Balance 900 -500 850 Weight 83 kg Intake: IV 20 Invasive Line 1 20 Intake, IV Titration 960 Amount Sodium Chloride 0.9% 1, 960 000 ml @ 80 mls/hr IV . [id number] [facility] Rx#:[id number] Oral 1080 240 Output: Urine 200 500 350 Other: Voiding Method Toilet Toilet Toilet # Voids 1 - Constitutional General appearance: Present: average body habitus, cooperative, no acute distress - EENT EENT Comment(s): coated tongue Eyes: Present: anicteric sclerae, EOMI ENT: Present: hearing grossly normal - Respiratory Respiratory: bilateral: CTA - Cardiovascular Rhythm: regular Heart sounds: normal: S1, S2 Abnormal Heart Sounds: Absent: systolic murmur, diastolic murmur, rub, S3 Gallop, S4 Gallop, click, other - Peripheral edema leg Peripheral Edema: bilateral: None - Gastrointestinal General gastrointestinal: Present: normal bowel sounds, soft - Neurologic Neurologic: Present: CNII-XII intact - Musculoskeletal Musculoskeletal: Present: strength equal bilaterally - Psychiatric Psychiatric: Present: A&O x's 3, appropriate affect, intact judgment & insight - Labs CBC & Chem 7: 01/01/20 08:02 12/30/19 13:17 Labs: Abnormal Lab Results - Last 24 Hours (Table) 12/31/19 01/01/20 01/01/20 Range/Units 18:00 08:02 12:11 WBC 28.5 H (3.8-10.6) k/uL Hgb 11.2 L (11.4-16.0) gm/dL Neutrophils # 27.2 H (1.3-7.7) k/uL Lymphocytes # 0.6 L (1.0-4.8) k/uL Urine Blood Small H Small H (Negative) Urine Bacteria Rare H (None) /hpf Urine Mucus Rare H (None) /hpf Microbiology - Last 24 Hours (Table) 12/30/19 18:13 Blood Culture - Preliminary Blood No Growth after 24 hours Assessment and Plan (1) Hypotensive episode Current Visit: Yes Status: Resolved Priority: High Code(s): I95.9 - HYPOTENSION, UNSPECIFIED SNOMED Code(s): 03832258 (2) Leukocytosis Narrative/Plan: Secondary to G-CSF. Her white count will come back down into a normal range the further she gets from treatment. Her dose dense regimen requires G-CSF support Current Visit: Yes Status: Acute Priority: Low Code(s): D72.829 - ELEVATED WHITE BLOOD CELL COUNT, UNSPECIFIED SNOMED Code(s): 670471486 (3) Breast cancer, right Narrative/Plan: Patient is status post 2nd cycle of neoadjuvant AC. She's had some mild changes in her left ventricular ejection fraction. She is being seen by Cardiology, stress test planned per pt. 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 Pyridium is helping the dysuira. Due to foul smelling urine will ask for UA-this was not suspicious, no C&S needed, cont with pyridium daily. May have to consider Urology evaluation if persistent or progressive. Current Visit: Yes Status: Acute Priority: High Code(s): C50.911 - MAGALY GNANT NEOPLASM OF UNSP SITE OF RIGHT FEMALE BREAST SNOMED Code(s): 512980316 (4) Cystitis Narrative/Plan: [place] to be related to the Cytoxan. Patient is already had a course of antibiotics, is no evidence to suggest ongoing or new infection at this time. Pyridium did help symptoms, will Rx. Current Visit: Yes Status: Acute Priority: High Code(s): N30.90 - CYSTITIS, UNSPECIFIED WITHOUT HEMATURIA SNOMED Code(s): 32049703 (5) Insomnia Narrative/Plan: Patient did get some relief with the Zyprexa. This will be continued. Current Visit: Yes Status: Acute Priority: Medium Code(s): G47.00 - INSOMNIA, UNSPECIFIED SNOMED Code(s): 227208454 Plan: For the patient's epigastric pain radiating up into the chest, have ordered some Tums when necessary, she forgot to try it. She is having Cardiology work up
[2020-01-01] MEDS: SALT AND SODA MOUTHWASH 1,000 ML PO SCH ×3 (16:00→23:37)
--- NOTE | 2020-01-01 17:56 | PN ---
PROGRESS NOTE CHIEF COMPLAINT: Chest pain and leukocytosis. HISTORY OF PRESENT ILLNESS: This lady is doing well. She is still having a little bit of mild lower anterior chest pain. She has had no fever or chills. Her white count is starting to come down. She will be seen by Hematology/Oncology today. PHYSICAL EXAMINATION: Color is good. Chest is clear. Cardiac exam is normal. Abdomen is soft, nontender. Extremities are normal. Vital signs are normal. IMPRESSION: 1. Anterior chest wall pain, probably costochondritis. 2. Leukocytosis. 3. Carcinoma of the right breast, on chemotherapy. PLAN: Increase activity and wait for recommendations from Hematology. MMODL / IJN: [id number] /
[2020-01-01] MEDS: OLANZapine 5 MG TAB PO SCH (20:08)
[2020-01-02] MEDS: SALT AND SODA MOUTHWASH 1,000 ML PO SCH ×5 (06:19→23:36)
[2020-01-02] MEDS: valACYclovir 500 MG TAB PO SCH ×2 (09:20→20:43)
[2020-01-02] MEDS: SODIUM CHLORIDE 0.9% 1,000 ML IV SCH ×2 (09:21→20:41)
[2020-01-02 09:40] LABS: Basophils % (A) 0 %; Eosinophils # (A) 0.1 k/uL (0-0.7); Eosinophils % (A) 1 %; HCT 33.8 % (34.0-46.0); HGB 10.6 gm/dL (11.4-16.0); Lymphocytes % (A) 10 %; MCH 27.8 pg (25.0-35.0); MCHC 31.3 g/dL (31.0-37.0); MCV 88.8 fL (80.0-100.0); Monocytes # (A) 0.2 k/uL (0-1.0); Monocytes % (A) 2 %; Neutrophils # (A) 9.2 k/uL (1.3-7.7); Neutrophils % (A) 88 %; Platelet Count 300 k/uL (150-450); RBC 3.81 m/uL (3.80-5.40); RDW 14.4 % (11.5-15.5); WBC 10.6 k/uL (3.8-10.6)
[2020-01-02] MEDS ORDERED: REGADENOSON 0.4 MG/5 ML SYRINGE IV ONE (11:17)
[2020-01-02] MEDS ORDERED: CAFFEINE CITRATE 60 MG/3 ML VIAL IV PRN (11:17)
[2020-01-02] MEDS ORDERED: AMINOPHYLLINE 500 MG/20 ML VIAL IV PRN (11:17)
--- NOTE | 2020-01-02 11:30 | P.PN ---
Progress Note - Text Progress Note Date: 01/02/20 This is a pleasant 54-year-old female patient with history of breast cancer as well as significant family history of coronary artery disease was admitted to the hospital with chest discomfort and ruled out for acute coronary event. She was seen today. Today's 01/02/2020. She is chest pain-free. I am going to order a stress test to rule out severe underlying coronary artery disease. Further recommendation to follow that.
--- NOTE | 2020-01-02 13:22 | XR ---
EXAMINATION TYPE: XR lumbar spine 2 or 3V DATE OF EXAM: 01/02/2020 CLINICAL HISTORY: pain TECHNIQUE: Three views of the lumbar spine are submitted. COMPARISON: None. FINDINGS: There are 5 lumbar type vertebral bodies identified. The lumbar spine shows satisfactory alignment w ithout evidence of acute fracture or dislocation. Vertebral body heights are within normal limits. Mild scattered degenerative disc space narrowing and spondylosis. Lower lumbar facet joint arthropath y. The overlying soft tissue appears unremarkable. IMPRESSION: No acute fracture or dislocation is seen in the lumbar spine. ICD 10 NO FRACTURE, INITIAL EVALUATION
--- NOTE | 2020-01-02 15:34 | EST ---
EXERCISE STRESS AGE: 54 SEX: F HT: 63" WT: 180 lbs. PROTOCOL: Lexiscan Cardiolite STAGE: DURATION OF EXERCISE: HEART RATE REST: 61 BLOOD PRESSURE REST: 113/68 MAXIMUM HEART RATE ACHIEVED: 105 MAXIMUM BLOOD PRESSURE: 113/60 85% MPHR: 142 100% MPHR: 167 METS: INDICATIONS: Chest pain. CLINICAL INFORMATION: Baseline EKG shows normal sinus rhythm with normal cardiac intervals, normal ST segments. Patient received Lexiscan infusion per protocol. Baseline heart rate 61 beats per minute. Baseline blood pressure 130/68 mmHg. There was no ECG evidence for ischemia. No sustained or nonsustained arrhythmias were noted. An occasional PVC was noted. Nuclear portion will be reported separately. MMODL / IJN: [id number] /
--- NOTE | 2020-01-02 15:40 | NM ---
EXAMINATION TYPE: NM stress lexiscan cardiolite DATE OF EXAM: 01/02/2020 COMPARISON: NONE HISTORY: Precordial chest pain and abnormal EKG TECHNIQUE: After the intravenous administration of 9.9 mCi Tc 99m Sestamibi - Cardiolite resting SPE CT images acquired 70 minutes post injection. The patient received 0.4mg Lexiscan, 25.5 mCi Tc 99m Sestamibi - Stress images obtained [address] injection FINDINGS: Review of stress and rest SPECT images demonstrates no distinct perfusion abnormality. Gated analysi s shows normal wall motion with an estimated left ventricular ejection fraction that is within normal limits. IMPRESSION: No scintigraphic evidence for reversible ischemia.
[2020-01-02] MEDS: ACETAMINOPHEN TAB 325 MG TAB PO PRN (16:41)
--- NOTE | 2020-01-02 17:52 | P.PN ---
Subjective Progress Note Date: 01/02/20 Principal diagnosis: Chest pain, leukocytosis In f/u today pt states feeling pretty well, chest pain mild 1, the epigastric burning less intense, no other acute or unmanageable symptoms to report. Objective - Vital Signs Vital signs: Vital Signs Temp 98.8 F 01/02/20 16:51 Pulse 69 01/02/20 16:51 Resp 16 01/02/20 11:17 BP 116/57 01/02/20 16:51 Pulse Ox 100 01/02/20 16:51 Intake & Output 01/01/20 01/02/20 01/02/20 18:59 06:59 18:59 Intake Total 1440 720 120 Output Total 350 400 Balance 1090 320 120 Weight 84.1 kg 84.1 kg Intake: IV 720 Sodium Chloride 0.9% 1, 720 000 ml @ 80 mls/hr IV . [id number] [facility] Rx#:[id number] Intake, IV Titration 960 Amount Sodium Chloride 0.9% 1, 960 000 ml @ 80 mls/hr IV . [id number] [facility] Rx#:[id number] Oral 480 120 Output: Urine 350 400 Other: Voiding Method Toilet Toilet Toilet # Voids 1 2 2 - Constitutional General appearance: Present: average body habitus, cooperative, no acute distress - EENT Eyes: Present: anicteric sclerae, EOMI ENT: Present: hearing grossly normal, normal oropharynx - Respiratory Respiratory: bilateral: CTA - Cardiovascular Rhythm: regular Heart sounds: normal: S1, S2 Abnormal Heart Sounds: Absent: systolic murmur, diastolic murmur, rub, S3 Gallop, S4 Gallop, click, other - Peripheral edema leg Peripheral Edema: bilateral: None - Gastrointestinal General gastrointestinal: Present: normal bowel sounds, soft. Absent: absent bowel sounds, decreased bowel sounds, distended, hepatomegaly, hyperactive bowel sounds, organomegaly, rigid, scaphoid, splenomegaly, tenderness, umbilical hernia, ventral hernia - Neurologic Neurologic: Present: CNII-XII intact - Musculoskeletal Musculoskeletal: Present: strength equal bilaterally - Psychiatric Psychiatric: Present: A&O x's 3, appropriate affect, intact judgment & insight - Labs CBC & Chem 7: 01/02/20 08:41 12/30/19 13:17 Labs: Abnormal Lab Results - Last 24 Hours (Table) 01/02/20 Range/Units 08:41 Hgb 10.6 L (11.4-16.0) gm/dL Hct 33.8 L (34.0-46.0) % Neutrophils # 9.2 H (1.3-7.7) k/uL Microbiology - Last 24 Hours (Table) 12/30/19 18:13 Blood Culture - Preliminary Blood No Growth after 48 hours - Imaging and Cardiology lumbar spine x-ray report reviewed-no acute process Assessment and Plan (1) Hypotensive episode Current Visit: Yes Status: Resolved Priority: High Code(s): I95.9 - HYPOTENSION, UNSPECIFIED SNOMED Code(s): 78583662 (2) Leukocytosis Narrative/Plan: Secondary to G-CSF. Quite possibly contributing to bone pain. Will add cl airitin. Her white count is normal today. Her dose dense regimen requires G- CSF support. Current Visit: Yes Status: Acute Priority: Low Code(s): D72.829 - ELEVATED WHITE BLOOD CELL COUNT, UNSPECIFIED SNOMED Code(s): 134677823 (3) Breast cancer, right Narrative/Plan: Patient is status post 2nd cycle of neoadjuvant AC. She's had some mild changes in her left ventricular ejection fraction. She is being seen by Cardiology, stress test planned, discussed with Cardiology. 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 Pyridium is helping the dysuira. She will cont on treatment, next cycle due next week Current Visit: Yes Status: Acute Priority: High Code(s): C50.911 - MALIGNANT NEOPLASM OF UNSP SITE OF RIGHT FEMALE BREAST SNOMED Code(s): 996604522 (4) Cystitis Narrative/Plan: [place] to be related to the Cytoxan. Patient is already had a course of antibiotics, is no evidence to suggest ongoing or new infection at this time. Pyridium did help symptoms, Rx done. Current Visit: Yes Status: Acute Priority: High Code(s): N30.90 - CYSTITIS, UNSPECIFIED WITHOUT HEMATURIA SNOMED Code(s): 38873616 (5) Insomnia Narrative/Plan: Patient getting relief with Zyprexa. This will be continued. Current Visit: Yes Status: Acute Priority: Medium Code(s): G47.00 - INSOMNIA, UNSPECIFIED SNOMED Code(s): 032521105 Plan: For the patient's epigastric pain radiating up into the chest, have ordered some Tums when necessary, did not help. Cardiology work up in process-has strong family Hx of cardiac disease
[2020-01-02] MEDS: LORATADINE 10 MG TAB PO SCH (18:25)
[2020-01-02] MEDS: OLANZapine 5 MG TAB PO SCH (20:43)
[2020-01-03] MEDS: SALT AND SODA MOUTHWASH 1,000 ML PO SCH ×2 (06:03→12:30)
[2020-01-03 08:04] VITALS: RESP 18
[2020-01-03] MEDS: SODIUM CHLORIDE 0.9% 1,000 ML IV SCH (08:05)
[2020-01-03] MEDS: LORATADINE 10 MG TAB PO SCH (08:10)
[2020-01-03] MEDS: valACYclovir 500 MG TAB PO SCH (09:48)
--- NOTE | 2020-01-03 10:00 | ECHOF ---
Referral Reason:on adriamycin MEASUREMENTS -------- HEIGHT: 160.0 cm WEIGHT: 83.9 kg BP: 105/59 RAP: 5.00 mmHg RVSP: 28.08 mmHg FINDINGS -------- Sinus rhythm. Limited study Overall left ventricular systolic function is normal with, an EF between 60 - 65 %. The aortic valve is trileaflet and appears structurally normal. Mild mitral regurgitation is present. Mild tricuspid regurgitation present. There is no pericardial effusion. CONCLUSIONS -------- 1. Limited study 2. Overall left ventricular systolic function is normal with, an EF between 60 - 65 %. 3. Mild mitral regurgitation is present. 4. Mild tricuspid regurgitation present. 5. There is no pericardial effusion. [employer]: FINN Harrison
[2020-01-03] MEDS: ACETAMINOPHEN TAB 325 MG TAB PO PRN (12:30)
[2020-01-03 12:33] VITALS: BP 102/59; PULSE 76; TEMP 98.1
--- NOTE | 2020-01-03 13:09 | P.PN ---
Subjective Progress Note Date: 01/03/20 Principal diagnosis: Chest pain, leukocytosis In f/u today pt states feeling good, epigastric burning is minimal, little bit dizzy hen changing positions but nothing terrible, no other acute or unmanageable symptoms to report. Objective - Vital Signs Vital signs: Vital Signs Temp 98.1 F 01/03/20 12:00 Pulse 76 01/03/20 12:00 Resp 18 01/03/20 12:00 BP 102/59 01/03/20 12:00 Pulse Ox 97 01/03/20 12:00 Intake & Output 01/02/20 01/03/20 01/03/20 18:59 06:59 18:59 Intake Total 240 240 Balance 240 240 Weight 84.1 kg 84.3 kg Intake: Oral 240 240 Other: Voiding Method Toilet # Voids 2 2 - Constitutional General appearance: Present: average body habitus, cooperative, no acute distress - EENT Eyes: Present: anicteric sclerae, EOMI ENT: Present: hearing grossly normal - Respiratory Details: respirations even and unlabored - Peripheral edema leg Peripheral Edema: bilateral: None - Neurologic Neurologic: Present: CNII-XII intact - Musculoskeletal Musculoskeletal: Present: strength equal bilaterally - Psychiatric Psychiatric: Present: A&O x's 3, appropriate affect, intact judgment & insight - Labs CBC & Chem 7: 01/02/20 08:41 12/30/19 13:17 Labs: Microbiology - Last 24 Hours (Table) 12/30/19 18:13 Blood Culture - Preliminary Blood No Growth after 72 hours - Imaging and Cardiology Cardiology stress test report reviewed Assessment and Plan (1) Hypotensive episode Narrative/Plan: Patient's blood pressure has been stable overall but, is noted at times to have lower BP. She is symptomatic with c/o dizziness, usually when changing positions. Seen and evaluated by Cardiology. Encouraged pt to stay hydrated and change positions slowly. Current Visit: Yes Status: Resolved Priority: High Code(s): I95.9 - HYPOTENSION, UNSPECIFIED SNOMED Code(s): 89624661 (2) Leukocytosis Narrative/Plan: Secondary to G-CSF. Quite possibly contributing to bone pain. Clairitin added. Her white count is normal today. Her dose dense regimen requires G-CSF support. Pt encouraged to use the claritin in the future as she did not this cycle. She can also use analgesics if needed Current Visit: Yes Status: Acute Priority: Low Code(s): D72.829 - ELEVATED WHITE BLOOD CELL COUNT, UNSPECIFIED SNOMED Code(s): 784653688 (3) Breast cancer, right Narrative/Plan: Patient is status post 2nd cycle of neoadjuvant AC. She's had some mild changes in her left ventricular ejection fraction. 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 Pyridium is helping the dysuira. She will cont on treatment, next cycle due next week. No adjustments planned at this time. Cont supportive care and medical management of her c/o Current Visit: Yes Status: Acute Priority: High Code(s): C50.911 - MALIGNANT NEOPLASM OF UNSP SITE OF RIGHT FEMALE BREAST SNOMED Code(s): 728355521 (4) Cystitis Narrative/Plan: [place] to be related to the Cytoxan. Patient is already had a course of antibiotics, is no evidence to suggest ongoing or new infection at this time. Pyridium did help symptoms, Rx done. Current Visit: Yes Status: Acute Priority: High Code(s): N30.90 - CYSTITIS, UNSPECIFIED WITHOUT HEMATURIA SNOMED Code(s): 67154807 (5) Insomnia Narrative/Plan: Patient getting relief with Zyprexa. She had a drug hangover this AM. I told her that she could use it on an as needed basis after she takes it as scheduled after chemo Current Visit: Yes Status: Acute Priority: Medium Code(s): G47.00 - INSOMNIA, UNSPECIFIED SNOMED Code(s): 521746452
--- NOTE | 2020-01-03 14:33 | P.PN ---
Subjective Progress Note Date: 01/03/20 CHIEF COMPLAINT: Chest pain HISTORY OF PRESENT ILLNESS: Patient underwent stress testing yesterday which was negative for reversible ischemia. Echo reveals EF between 60 and 65%. Patient examined this morning the bedside. She reports very minimal chest pain and states it feels more like heartburn. Denies shortness of breath. Vital signs are stable. PHYSICAL EXAM: VITAL SIGNS: Reviewed. GENERAL: Well-developed in no acute distress. NECK: Supple. No JVD or thyromegaly LUNGS: Respirations even and unlabored. Lungs essentially clear to auscultation bilaterally. HEART: Regular rate and rhythm. S1 and S2 heard. EXTREMITIES: Normal range of motion. No clubbing or cyanosis. Peripheral pulses intact. No lower extremity edema ASSESSMENT: 1. Atypical chest discomfort, an acute coronary event has been ruled out 2. Family history of coronary artery disease PLAN: -Patient may be discharged home from a cardiac perspective. -She is to follow up with Dr. Short outpatient Nurse practitioner note has been reviewed by physician. Signing provider agrees with the documented findings, assessment, and plan of care. Objective - Vital Signs Vital signs: Vital Signs Temp 98.4 F 01/03/20 08:00 Pulse 80 01/03/20 08:00 Resp 18 01/03/20 08:00 BP 108/59 01/03/20 08:00 Pulse Ox 100 01/03/20 08:00 Intake & Output 01/02/20 01/03/20 01/03/20 18:59 06:59 18:59 Intake Total 240 240 Balance 240 240 Weight 84.1 kg 84.3 kg Intake: Oral 240 240 Other: Voiding Method Toilet # Voids 2 2 - Labs CBC & Chem 7: 01/02/20 08:41 12/30/19 13:17 Labs: Microbiology - Last 24 Hours (Table) 12/30/19 18:13 Blood Culture - Preliminary Blood No Growth after 72 hours
--- NOTE | 2020-01-03 15:12 | PN ---
PROGRESS NOTE DATE OF SERVICE: 01/02/2020. CHIEF COMPLAINT: Leukocytosis and chest pain. HISTORY OF PRESENT ILLNESS: This lady seems to be doing fairly well. She has not had any more chest pain which seems to be more costochondritic. She is complaining of a lot of low back pain and films of the spine will be obtained. She has not had any fever and chills, urinary complaints, etc. PHYSICAL EXAMINATION: Chest is clear. Cardiac exam is normal. Abdomen is soft and nontender. IMPRESSION: 1. Chest pain. 2. Probable low anterior chest wall costochondritis. 3. Low back pain. 4. History of coronary artery disease. 5. CA of the right breast. 6. Leukocytosis. PLAN: 1. Continue to follow white count. 2. X-ray of the LS spine. 3. Await any further recommendations from Cardiology or Oncology. MMODL / IJN: [id number] /
--- NOTE | 2020-01-03 15:54 | PN ---
PROGRESS NOTE CHIEF COMPLAINT: Chest pain and carcinoma of the right breast with leukocytosis. HISTORY OF PRESENT ILLNESS: This lady is doing well. She is feeling better. She still is complaining of back pain. X-ray report will be reviewed. She is going for further cardiac testing today. PHYSICAL EXAMINATION: Her chest is clear. The cardiac exam is normal. The abdomen is soft and nontender. IMPRESSION: 1. Anterior chest wall pain due to costochondritis. 2. Carcinoma of the right breast. 3. Leukocytosis, improving. 4. Low back pain. PLAN: Wait for the balance of her cardiac studies. She will probably be able to be discharged soon. MMODL / IJN: [id number] /
--- NOTE | 2020-01-04 23:44 | DS ---
DISCHARGE SUMMARY CHIEF COMPLAINT: Chest pain. HISTORY OF PRESENT ILLNESS AND PHYSICAL EXAMINATION: Details of this lady's history and physical can be found in the initial workup. LABORATORY STUDIES: While she was in the hospital, she had laboratory studies, details of which can be found in the laboratory section of her chart. COURSE IN THE HOSPITAL: After admission she was placed at bedrest, started intravenous fluids. She was seen by Cardiology. Because her white count was around 40,000, she was also seen by Hematology and Oncology. White count trended down quickly toward normal. It was felt that her chest pain was likely due to an anterior costochondritis. After she was evaluated by Cardiology, it was felt that she could be discharged and she will go home on her usual activity, diet, and her usual medications and will follow up in several days. FINAL DIAGNOSES: 1. Atypical chest pain. 2. Costochondritis. 3. CA of the right breast. 4. Leukocytosis. OPERATIONS: None. CONSULTATIONS: Hematology/oncology and cardiology. She is improved. MMODL / IJN: [id number] /
[2020-01-12] MEDS ORDERED: PEGFILGRASTIM 6 MG SQ SCH (09:00)
== END 2020-01-03 15:57 | disposition home or self-care (01) | DRG 206 ==
LOC: EC 12:34 → 3SCARD 17:05 → 3NCARDOBS 01-02 21:06 → 3SCARD 01-02 21:06
PROVIDERS: ADMIT Family Medicine; ATTEND Family Medicine
DX: M94.0 Chondrocostal junction syndrome [Tietze] (principal); C50.911 Malignant neoplasm of unspecified site of right female breast; C73 Malignant neoplasm of thyroid gland; G47.00 Insomnia, unspecified; I25.10 Atherosclerotic heart disease of native coronary artery without angina pectoris; N30.91 Cystitis, unspecified with hematuria; Z80.0 Family history of malignant neoplasm of digestive organs; B00.9 Herpesviral infection, unspecified; K21.9 Gastro-esophageal reflux disease without esophagitis; R32 Unspecified urinary incontinence; I95.9 Hypotension, unspecified; D72.829 Elevated white blood cell count, unspecified; Z82.49 Family history of ischemic heart disease and other diseases of the circulatory system; Z90.711 Acquired absence of uterus with remaining cervical stump; Z90.49 Acquired absence of other specified parts of digestive tract; Z88.5 Allergy status to narcotic agent; Z88.0 Allergy status to penicillin; Z88.2 Allergy status to sulfonamides; Z88.1 Allergy status to other antibiotic agents; Z91.041 Radiographic dye allergy status; Z11.59 Encounter for screening for other viral diseases; F41.1 Generalized anxiety disorder
CPT/HCPCS: 36415; 71046; 72100; 76770; 78452; 80053; 81001; 82550; 83735; 83880; 84484; 85025; 85379; 85610; 85730; 87040; 93005; 93017; 93308; 96374; 99285

== ENCOUNTER → 2020-01-18 | Outpatient (CLI) | payer OTHER ==
[2020-01-18 11:50] VITALS: BP 114/66; PULSE 71; RESP 20; TEMP 98.5
--- NOTE | 2020-01-18 11:56 | P.PN ---
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 This is grade 3 ER/MS and HER-2 negative and the size was approximately 2.7 cm. She has received 3 doses of Adriamycin and Cytoxan. She had a course of chemotherapy last week and is feeling disoriented . Her last hemoglobin we have was 10.6 on 01-02-20, however she is having a repeat hemoglobin performed today. She is complaining of dizziness, inability to stand for any period of time, and her heart feeling like it's been in her ears. This has been since her chemotherapy last week. She has had a PET scan performed which did not show any evidence of metastatic disease and also was negative in the axilla. She states the lesion in the breast has decreased in size. After the first chemotherapy treatment the patient had a urinary tract infection and bilateral ear infections attributed to the chemotherapy. After the second chemotherapy the patient had a leukocytosis with a white count of 49,000 and required hospitalization for 5 days. After the third course of chemotherapy the patient has had dizziness and inability to stand for a long period of time. She is supposed to have one more dose of Adriamycin and Cytoxan which will be followed then by taxol for four treatments. The taxol would be given every other week. She had an ultrasound of the thyroid performed on which revealed nonspecific nodularity, she is going to follow up with this with DR. Sterling. Family history: Mother: Cervical: Cancer, bilateral buttock cancers Maternal cousin: Breast cancer Surgical history: 1. Partial hysterectomy 42 for fibroid tumors 2. Right breast biopsy 2. Appendectomy 4. Lumbar Left arm 5. Arnold-Chiari malformation brain surgery in 2006 Medical history: 1. Arnold-Chiari malformation spatial issues muscle weakness right side of the body and poor balance Social history: Smoke: Negative Alcohol: Occasional Drugs: Negative review of systems HEENT: Arnold-Chiari malformation/status post surgery Decreased hearing Headaches at times, Dizziness Breasts: As per HPI Cardiovascular: Negative Mesentery: Negative GI: Constipation : Negative Musculoskeletal: Weakness on the right side, low back pain Integument: Negative Neurologic: Weakness and dizziness Psychiatric: Anxiety Endocrine: The changed Hematologic: Negative ALLERGIES: Seasonal ALLERGIES Objective - Exam BMI 32.8 - Constitutional General appearance: Present: obese - EENT Eyes: Present: EOMI ENT: Present: hearing grossly normal - Neck Neck: Present: normal ROM - Respiratory Respiratory: bilateral: CTA - Cardiovascular Rhythm: regular Heart sounds: normal: S1, S2 - Gastrointestinal General gastrointestinal: Present: normal bowel sounds, soft - Integumentary Integumentary: Present: normal turgor - Musculoskeletal Musculoskeletal Comment(s): poor balance - Psychiatric Psychiatric: Present: A&O x's 3, appropriate affect, intact judgment & insight - Additional findings Additional findings: breast exam: BRA: 44G inspection: The ptosis bilateral Palpation: Right breast: Good response to neoadjuvant chemotherapy with no discrete dominant mass in the 12 o'clock position of the right breast, the prior mass was approximately 3X2.5 centimeters and there remains some fullness in this area but no dominant discrete mass, tenderness to palpation and fibrocystic changes but no other dominant masses or nodules of concern Right axilla: No adenopathy of concern Left breast: Fibrocystic changes, tenderness to palpation no discrete dominant masses or nodules of concern Left axilla: No adenopathy of concern Assessment and Plan Assessment: impression: 1. Stage IIB right breast cancer with good response to neoadjuvant chemotherapy 2. postchemotherapy dizziness/difficulty with balance 3. alopecia Plan: 1. Continued chemotherapy as per medical oncology 2. Patient following with medical oncology today 3. Have discussed a lumpectomy via Snider pattern reduction approach after completion of the chemotherapy, patient will most likely have a symmetry procedure on the contralateral side when treatment is done CC: DR. Lugo encounter 30 minutes, > 50% of time in planning and counselling
== END | disposition home or self-care (01) ==
LOC: WWCWWP 11:25
PROVIDERS: ATTEND Surgery
DX: Z53.9 Procedure and treatment not carried out, unspecified reason (principal)

== ENCOUNTER → 2020-01-26 | Outpatient (CLI) | payer OTHER ==
--- NOTE | 2020-01-26 10:47 | ECHOF ---
Referral Reason:Z01.818 Pre procedural chemo MEASUREMENTS -------- HEIGHT: 160.0 cm WEIGHT: 83.9 kg BP: RVIDd: 2.7 cm (< 3.3) IVSd: 1.3 cm (0.6 - 1.1) LVIDd: 3.1 cm (3.9 - 5.3) LVPWd: 1.4 cm (0.6 - 1.1) IVSs: 1.4 cm LVIDs: 2.7 cm LVPWs: 1.3 cm LA Diam: 3.0 cm (2.7 - 3.8) LAESV Index (A-L): 20.88 ml/m Ao Diam: 2.1 cm (2.0 - 3.7) AV Cusp: 1.4 cm (1.5 - 2.6) MV EXCURSION: 11.236 mm (> 18.000) MV EF SLOPE: 67 mm/s (70 - 150) EPSS: 0.2 cm MV E Jaime: 0.66 m/s MV DecT: 234 ms MV A Jaime: 0.77 m/s MV E/A Ratio: 0.86 RAP: 5.00 mmHg RVSP: 12.99 mmHg FINDINGS -------- Sinus rhythm. This was a technically good study. The left ventricular size is normal. There is mild concentric left ventricular hypertrophy. Overa ll left ventricular systolic function is normal with, an EF between 55 - 60 %. The diastolic fillin g pattern is normal for the age of the patient 8.25. The right ventricle is normal in size. Normal LA size by volume 22+/-6 ml/m2. The right atrial size is normal. The aortic valve is trileaflet, and appears structurally normal. No aortic stenosis or regurgitation. The mitral valve is normal. Mild mitral regurgitation is present. The tricuspid valve appears structurally normal. Trace tricuspid regurgitation present. Right angel tricular systolic pressure is normal at < 35 mmHg. There is no pulmonic regurgitation present. The aortic root size is normal. There is a trivial pericardial effusion present. CONCLUSIONS -------- 1. There is mild concentric left ventricular hypertrophy. 2. Overall left ventricular systolic function is normal with, an EF between 55 - 60 %. 3. Normal LA size by volume 22+/-6 ml/m2. 4. The aortic valve is trileaflet, and appears structurally normal. No aortic stenosis or regurgitati on. 5. Mild mitral regurgitation is present. 6. Trace tricuspid regurgitation present. LINOLEUM TILE LAYER: Anjali Cuadra RDCS
== END | disposition home or self-care (01) ==
LOC: RADECHMAIN 08:25
PROVIDERS: ATTEND Internal Medicine Hematology & Oncology
DX: I51.7 Cardiomegaly (principal); I34.0 Nonrheumatic mitral (valve) insufficiency; Z88.0 Allergy status to penicillin
CPT/HCPCS: 93306

== ENCOUNTER → 2020-02-14 | Outpatient (CLI) | payer OTHER ==
--- NOTE | 2020-02-15 11:04 | USB ---
Reason for exam: follow-up at short interval from prior study. History: Patient is postmenopausal and has history of breast cancer at age 54. Family history of breast cancer in maternal cousin. Malignant US biopsy breast VAD RT of the right breast, November 15, 2019. Benign US right guided VAD of the right breast, November 04, 2009. Benign excisional biopsy of the right breast, 1999. Excisional biopsy of the left breast, 1979. Physical Findings: Nurse did not find any significant physical abnormalities on exam. US Breast Limited RT Right limited breast ultrasound including focal area of concern, retroareolar and axilla demonstrates a 1.4 x 0.6 x 2.0cm irregular, solid lesion at 12 o'clock, previously biopsied, clip visualized. Significantly improved. Decreased in size, some residual evident. These results were verbally communicated with the patient and result sheet given to the patient on 02/14/20. ASSESSMENT: Known biopsy proven malignancy, BI-RAD 6 RECOMMENDATION: Clinical management of the right breast. Manage on a clinical basis with regard to known cancer.
== END | disposition home or self-care (01) ==
LOC: RADUSWWP 14:31
PROVIDERS: ATTEND Internal Medicine Hematology & Oncology
DX: Z08 Encounter for follow-up examination after completed treatment for malignant neoplasm (principal); Z85.3 Personal history of malignant neoplasm of breast

== ENCOUNTER → 2020-03-22 | Outpatient (CLI) | payer OTHER ==
[2020-03-22 11:36] VITALS: BP 122/85; PULSE 124; RESP 18; TEMP 98.5
--- NOTE | 2020-03-22 12:11 | P.PN ---
Subjective Progress Note Date: 03/22/20 Principal diagnosis: stage IIA right breast cancer [id number] stage IIA right breast cancer Esmer is a 54-year-old -[place]egales[place] female who was diagnosed with a poorly differentiated right breast invasive ductal carcinoma on . This is grade 3 ER/NC and HER-2 negative and the size was approximately 2.7 cm. She has received Adriamycin and Cytoxan., followed by taxol. She had her chemo yesterday. She has had a PET scan performed in November 2019 which did not show any evidence of metastatic disease and also was negative in the axilla. She states the lesion in the breast has decreased in size. After the first chemotherapy treatment the patient had a urinary tract infection and bilateral ear infections attributed to the chemotherapy. After the second chemotherapy the patient had a leukocytosis with a white count of 49,000 and required hospitalization for 5 days. After the third course of chemotherapy the patient has had dizziness and inability to stand for a long period of time. After her fourth dose of chemotherapy she was given IV fluids for dehydration secondary to vomiting. She then started Taxol which she completed yesterday. She developed neuropathy with a Taxol as well as bone pain and nausea and diarrhea. She will get neulasta today. She had genetic testing performed and was told she was negative for the BRACA gene. She had an ultrasound of the thyroid performed on which revealed nonspecific nodularity, she is going to follow up with this with DR. Sterling. Family history: Mother: Cervical: Cancer, bilateral buttock cancers, colon cancer Maternal cousin: Breast cancer Surgical history: 1. Partial hysterectomy 42 for fibroid tumors 2. Right breast biopsy 2. Appendectomy 4. Lumbar Left arm 5. Arnold-Chiari malformation brain surgery in 2006 Medical history: 1. Arnold-Chiari malformation spatial issues muscle weakness right side of the body and poor balance Social history: Smoke: Negative Alcohol: Occasional Drugs: Negative review of systems HEENT: Arnold-Chiari malformation/status post surgery Decreased hearing Headaches at times, Dizziness Breasts: As per HPI Cardiovascular: Negative Mesentery: Negative GI: Constipation : Negative Musculoskeletal: Weakness on the right side, low back pain Integument: Negative Neurologic: Weakness and dizziness Psychiatric: Anxiety Endocrine: The changed Hematologic: Negative ALLERGIES: Seasonal ALLERGIES Objective - Vital Signs Vital signs: Vital Signs Temp 98.5 F 03/22/20 11:30 Pulse 124 H 03/22/20 11:30 Resp 18 03/22/20 11:30 BP 122/85 03/22/20 11:30 Pulse Ox 100 03/22/20 11:30 Intake & Output 03/21/20 03/22/20 03/22/20 18:59 06:59 18:59 Weight 83.915 kg - Exam BMI 32.8 - Constitutional General appearance: Present: obese - EENT Eyes: Present: EOMI ENT: Present: hearing grossly normal - Neck Neck: Present: normal ROM - Respiratory Respiratory: bilateral: CTA - Cardiovascular Rhythm: regular Heart sounds: normal: S1, S2 - Gastrointestinal General gastrointestinal: Present: normal bowel sounds, soft - Integumentary Integumentary: Present: normal turgor - Musculoskeletal Musculoskeletal: Present: gait normal - Psychiatric Psychiatric: Present: A&O x's 3, appropriate affect, intact judgment & insight - Additional findings Additional findings: Breast exam: BRA: 46F inspection: bilateral grade 3 ptosis palpation: Right breast multiple positional exam no discrete dominant masses or nodules of concern at this time, fibrocystic changes Right axilla: No adenopathy of concern Left breast: Multi-positional exam fibrocystic changes, no dominant masses or nodules of concern Left axilla: No adenopathy of concern Assessment and Plan Assessment: Impression: 1. Arnold-Chiari malformation spatial issues muscle weakness right side of the body and poor balance 2. keren adjuvant shrinking of the tumor in the right breast 3. Macromastia 4. Stage II a right breast cancer no evidence of metastatic disease 5. pre-op clearance by Dr. Lugo, and Dr. Delcid On the risk and benefits of surgical procedures were discussed with Esmer. Options of mastectomy plus or minus immediate reconstruction, versus lumpectomy, versus flores pattern reduction mammoplasty lumpectomy were all discussed. At this time the patient would like to have a Flores pattern reduction mammoplasty approach to the resection of the tumor. She understands the risks and benefits and if the margins were to be positive this possible she would need further surgical resection. We've also discussed sentinel node biopsy first and axillary node dissection. Risks include but are not limited to bleeding, infection, reaction to the anesthetic. Additionally the possibility of lymphedema or inguinal scapula were discussed. She understands and wishes to proceed. She also understands that she will have asymmetry of the breast after the procedure and that a symmetry procedure on the left breast would not be done until after radiation therapy is completed. The patient was given the option of seeing a plastic surgeon and declined. Plan: 1. Needle localization with a Flores pattern reduction mammoplasty approach the partial mastectomy, possible onco-plastic tissue rearrangement, sentinel node injection, sentinel node biopsy, possible axillary node dissection Cc: Dr. Lugo encounter 25 minutes > 50% of time spent in planning and counselling
== END | disposition home or self-care (01) ==
LOC: WWCWWP 11:17
PROVIDERS: ATTEND Surgery
DX: Z53.9 Procedure and treatment not carried out, unspecified reason (principal)

== ENCOUNTER → 2020-04-04 | Outpatient (CLI) | payer OTHER ==
--- NOTE | 2020-04-04 15:30 | XR ---
Bilateral hips HISTORY: Pain 2 views of each hip submitted There is marginal spurring, some mild prominence of right acetabulum is noted. Some questionable scle rosis along the superior margins of the femoral neck greater on the left than on the right. Joint ali gnment is maintained. Surgical clips are present within the pelvis. No fracture or dislocation. IMPRESSION: Bone scan may be of benefit. Osteoarthritis. Consider femoral acetabular impingement.
== END | disposition home or self-care (01) ==
LOC: RADXRMAIN 14:33
PROVIDERS: ATTEND Internal Medicine Hematology & Oncology
DX: M16.0 Bilateral primary osteoarthritis of hip (principal); C50.411 Malignant neoplasm of upper-outer quadrant of right female breast
CPT/HCPCS: 73521

== ENCOUNTER → 2020-04-18 | Outpatient (CLI) | payer OTHER ==
[2020-04-18 09:21] VITALS: BP 121/87; PULSE 118; RESP 18; TEMP 98.2
--- NOTE | 2020-04-18 09:27 | P.PN ---
Subjective Progress Note Date: 04/18/20 Principal diagnosis: stage IIA right breast cancer stage IIA right breast cancer [id number]- stage IIA right breast cancer Esmer is a 55-year-old -Uz[place] female who was diagnosed with a poorly differentiated right breast invasive ductal carcinoma on . This is grade 3 ER/NV and HER-2 negative and the size was approximately 2.7 cm. She has received Adriamycin and Cytoxan., followed by taxol. Her last chemotherapy was March 21, 2020. She has had a PET scan performed in November 2019 which did not show any evidence of metastatic disease and also was negative in the axilla. She states the lesion in the breast has decreased in size. After the first chemotherapy treatment the patient had a urinary tract infection and bilateral ear infections attributed to the chemotherapy. After the second chemotherapy the patient had a leukocytosis with a white count of 49,000 and required hospitalization for 5 days. After the third course of chemotherapy the patient had dizziness and inability to stand for a long period of time. After her fourth dose of chemotherapy she was given IV fluids for dehydration secondary to vomiting. She then started Taxol which she completed March 21. She developed neuropathy with a Taxol as well as bone pain and nausea and diarrhea. She will get neulasta on March 22. She had genetic testing performed and this was negative for the BRACA gene, this was done on 12-07-19. [place] [address] which revealed nonspecific nodularity, she is going to follow up with this with DR. Sterlnig, she is going to follow up with this after her breast cancer treatment. Family history: Mother: Cervical: Cancer, bilateral buttock cancers, colon cancer Maternal cousin: Breast cancer Surgical history: 1. Partial hysterectomy 42 for fibroid tumors 2. Right breast biopsy 2. Appendectomy 4. Lumbar Left arm 5. Arnold-Chiari malformation brain surgery in 2006 Medical history: 1. Arnold-Chiari malformation spatial issues muscle weakness right side of the body and poor balance Social history: Smoke: Negative Alcohol: Occasional Drugs: Negative review of systems HEENT: Arnold-Chiari malformation/status post surgery Decreased hearing Headaches at times, Dizziness Breasts: As per HPI Cardiovascular: Negative Mesentery: Negative GI: Constipation : Negative Musculoskeletal: Weakness on the right side, low back pain Integument: Negative Neurologic: Weakness and dizziness Psychiatric: Anxiety Endocrine: The changed Hematologic: Negative ALLERGIES: Seasonal ALLERGIES Objective - EENT Eyes: Present: EOMI ENT: Present: hearing grossly normal - Neck Neck: Present: normal ROM - Respiratory Respiratory: bilateral: CTA - Cardiovascular Rhythm: regular Heart sounds: normal: S1, S2 - Gastrointestinal General gastrointestinal: Present: normal bowel sounds, soft - Integumentary Integumentary: Present: normal turgor - Musculoskeletal Musculoskeletal: Present: gait normal - Psychiatric Psychiatric: Present: A&O x's 3, appropriate affect, intact judgment & insight - Additional findings Additional findings: breast exam: BRA: 44G inspection: bilateral grade 3 ptosis palpation: right breast: Multi-positional exam increased fullness in the 12 o'clock position, otherwise fibrocystic changes no other dominant masses or nodules of concern Right axilla: No adenopathy of concern Left breast: Multi-positional exam fibrocystic changes, no dominant masses or nodules of concern Left axilla: No adenopathy of concern Assessment and Plan Assessment: Impression: 1. Stage II a right breast cancer status post neoadjuvant chemotherapy 2. Arnold-Chiari malformation/spatial issues, muscle weakness right side of body and poor balance 3. Macromastia Plan: 1. Bilateral mastectomy, sentinel node injection on the right, sentinel node biopsy on the right, possible axillary node dissection, removal of Port-A-Cath, possible VY advancement flap in the axillas 2. Clearance from Dr. Mathews 3. She was given the option of seeing a plastic surgeon and have immediate postoperative reconstruction and has declined. She was shown what a prosthesis would look like. The patient initially was considering a lumpectomy however on today's visit she is very adamant about wanting bilateral mastectomies. She understands the risks and benefits which include but are not limited to bleeding, infection, reaction to the anesthetic. We have discussed the risk of lymphedema. She understands that she may have a seroma which would require postprocedure aspiration. We have discussed risks of sentinel node biopsy and axillary node dissection. She understands and wishes to proceed.
== END | disposition home or self-care (01) ==
LOC: WWCWWP 08:41
PROVIDERS: ATTEND Surgery
DX: Z53.9 Procedure and treatment not carried out, unspecified reason (principal)

== ENCOUNTER 2020-05-14 08:12 | Day surgery (SDC) | payer OTHER ==
[2020-05-13 08:59] VITALS: BMI 30.8
[~2020-05-14 08:12] MED LIST changes: -ACETAMINOPHEN TAB 500 MG TAB ONE; +DEXAMETHASONE SOD PHOSPHATE 4 MG/ML 1 ML VIAL IV ONE; -HEPARIN SODIUM,PORCINE 5,000 UNIT/ML 1 ML VIAL ONE; +HEPARIN SODIUM,PORCINE 5,000 UNIT/ML 1 ML VIAL SQ PRN; -LACTATED RINGERS 1,000 ML IV SCH; +LIDOCAINE 1% (10MG/ML) FOR IV START INTRADERMA PRN; +MIDAZOLAM 2 MG/2 ML VIAL IV PRN; +ONDANSETRON 4 MG/2 ML VIAL IVP ONE; -ONDANSETRON 4 MG/2 ML VIAL ONE
[2020-05-14] MEDS ORDERED: ALPRAZolam 0.5 MG TAB ONE (08:28)
[2020-05-14] MEDS: LACTATED RINGERS 1,000 ML IV SCH (08:48)
[2020-05-14] MEDS ORDERED: SCOPOLAMINE 1.5MG/72HR PATCH TRANSDERM ONE (09:14)
--- NOTE | 2020-05-14 10:14 | NM ---
EXAMINATION TYPE: NM sentinel node injection DATE OF EXAM: 05/14/2020 COMPARISON: NONE INDICATION: Abnormal mammogram. Patient scheduled for mastectomy Informed consent was obtained. A timeout was performed. The area around the right nipple was cleansed with alcohol. The skin was anesthetized with 1% Lidoca ine. In a single dose, a total of 540 microcuries Technetium 99m Tilmanocept was injected. The alejandro ent tolerated the procedure very well. IMPRESSIONS: 1.. Successful injection for sentinel node evaluation.
[2020-05-14] MEDS ORDERED: SUCCINYLCHOLINE CHLORIDE 100 MG/5 ML SYR IV ONE (12:35)
[2020-05-14] MEDS ORDERED: MIDAZOLAM 2 MG/2 ML VIAL ONE (12:35)
[2020-05-14] MEDS ORDERED: HYDROmorphone (PF) 1 MG/ML ONE (12:35)
[2020-05-14] MEDS ORDERED: GLYCOPYRROLATE 0.2 MG/ML 2 ML VIAL ONE (12:35)
[2020-05-14] MEDS ORDERED: NEOSTIGMINE 1 MG/ML 10 ML VIAL ONE (12:35)
[2020-05-14] MEDS ORDERED: fentaNYL (PF) 50 MCG/ML 2 ML AMP ONE (12:35)
[2020-05-14] MEDS ORDERED: ROCURONIUM 10 MG/ML (10 ML VIAL) IV ONE (12:35)
[2020-05-14] MEDS ORDERED: PROPOFOL 10 MG/ML 20 ML VIAL IV ONE (12:35)
[2020-05-14] MEDS ORDERED: LIDOCAINE 1% INJ 10MG/ML (20 ML MDV) ONE (12:35)
[2020-05-14] MEDS ORDERED: LACTATED RINGERS 1,000 ML IV ONE ×2 (13:00→16:10)
--- NOTE | 2020-05-14 13:16 | P.OP ---
Date of Procedure: 05/14/20 Procedure(s) Performed: PREOPERATIVE DIAGNOSIS: Right breast cancer POSTOPERATIVE DIAGNOSIS: Same PROCEDURE: Port-A-Cath removal SURGEON: Susan EBL: Minimal ANESTHESIA: General COMPLICATIONS: None OPERATIVE PROCEDURE: Patient was placed in the supine position. The patient was placed under general anesthesia at that time. The chest was prepped sterilely for the upcoming bilateral mastectomy. Dr. Jalyn Poe started the procedure by beginning a right mastectomy incision. The superior flap was first elevated up to the point where the port was identified. The port was then fully excised using electrocautery. No bleeding from the tract was seen. Pressure was held along the tract. The catheter was fully intact. The remainder the procedure will be dictated by Dr. Jalyn Poe. DISPOSITION: Patient remains in the OR
--- NOTE | 2020-05-14 17:00 | P.OP ---
Date of Procedure: 05/14/20 Preoperative Diagnosis: Right breast carcinoma Postoperative Diagnosis: Same Procedure(s) Performed: Bilateral mastectomy, bilateral axillary V-Y advancement flaps, sentinel node biopsy right axilla Anesthesia: SAMIRAA Surgeon: Ruby Marks Estimated Blood Loss (ml): 60 IV fluids (ml): 1,400 Pathology: other (Bilateral breasts, right sentinel node) Condition: stable Disposition: floor Indications for Procedure: Right breast cancer Operative Findings: Macromastia, fibrofatty breast tissue Description of Procedure: Esmer is a 55 -year-old -[place] female diagnosed with a right gregg ast carcinoma. She underwent neoadjuvant chemotherapy. She decided that she would like to have bilateral mastectomies. The patient does have macromastia as well as a diagnosis of right breast cancer. The patient was brought to the operating room and following induction of anesthesia the right axilla was interrogated with the neoprobe to identify radioactivity was present so the sentinel node could be sampled. Radioactivity was identified. The breasts were prepped and draped in a sterile fashion. The right side was approached initially. A Port-A-Cath was removed by Dr. Cheng Escobedo. The remnants superior and inferior skin incisions were drawn. These incisions were made and dissection was carried down to subcutaneous plane to the chest wall superiorly and inferiorly. The breast was brought from medial to lateral being careful to maintain hemostasis using electrocautery device. At the level of the axilla was interrogated. The area of increased radioactivity was identified and a sentinel node was identified and the deep axillary tissues and removed. The 10 second count was 28,000, the 10 second background count was 28. Antonio-Ponce drains were placed. After assured that hemostasis was attained, the wound was well irrigated. Surgicel in powder form was placed. The deep tissues were closed using 3-0 Vicryl suture. The axillary tissue was noted to be very redundant with a dogear was pesent, a V- Y advancement flap was developed to close this area. The area of advancement was approximately 4 cm. The subcuticular tissue was closed using a 4-0 Monocryl. The skin was further reinforced with a 4-0 nylon suture. The drains were secured with 3-0 Vicryl sutures. The left breast was approached. The location for the superior and inferior skin incisions were drawn. These incisions were made and dissection was carried down to the subcutaneous plane to the chest wall superiorly and inferiorly. The breast was removed from medial to lateral being careful to maintain hemostasis using electrocautery device, and harmonic scalpel. She Antonio-Pocne drains were placed. After we were assured that hemostasis was attained the wound was well irrigated. S urgicel in powder form was placed. The deep tissues were closed using 3-0 Vicryl suture. The axillary tissue was noted to be very redundant with a dog ear; a V-Y advancement flap was developed to close this area. The area of advancement was approximately 4 cm. The subcuticular tissue was closed using a 4-0 Monocryl. The skin was further reinforced with a 4-0 nylon suture. The drains were secured with 3-0 Vicryl sutures. All instruments and sponge counts were correct at the end of the case. The drains were noted to hold suction. The patient tolerated the procedure in stable condition.
[2020-05-14] MEDS ORDERED: NALOXONE 0.4 MG/ML 1 ML VIAL IV PRN (17:01)
[2020-05-14] MEDS ORDERED: TEMAZEPAM 15 MG CAP PO PRN (17:01)
[2020-05-14] MEDS ORDERED: CALCIUM CARBONATE 500 MG CHEWABLE PO PRN (17:01)
[2020-05-14] MEDS ORDERED: ONDANSETRON 4 MG/2 ML VIAL IVP PRN (17:01)
--- NOTE | 2020-05-14 17:08 | P.NAPBC ---
NAPBC Queries - NAPBC Queries Was patient's case review presented at [facility] tumor board? If no, comment.: Yes Was patient's pathology reviewed at [facility]? If no, comment.: Yes Was breast conservation surgery offered? If no, comment.: Yes Was sentinel node biopsy offered? If no, comment.: Yes Was diagnosis confirmed by percutaneous core biopsy? If no, comment.: Yes Is patient mastectomy patient?: Yes Was a preop referral to reconstructive surgeon offered?: Yes (patient declined) Clinical Stage: stage IIA right bvresaet cancer; [id number] (-)
[2020-05-14] MEDS: HYDROmorphone 0.5 MG/0.5 ML SYRINGE IVP PRN ×2 (18:33→19:53)
[2020-05-14] MEDS ORDERED: hydrALAZINE HCL 20 MG/ML 1 ML VIAL IVP ONE (19:28)
[2020-05-14] MEDS: DEXTROSE 5%-0.45% NACL 1,000 ML IV SCH (21:48)
[2020-05-14] MEDS: HEPARIN SODIUM,PORCINE 5,000 UNIT/ML 1 ML VIAL SQ SCH (23:12)
[2020-05-14] MEDS: HYDROmorphone 1 MG/ML 1 ML SYRINGE IV PRN (23:12)
[2020-05-15] MEDS: LACTATED RINGERS 1,000 ML IV SCH (00:46)
[2020-05-15] MEDS: HYDROmorphone 1 MG/ML 1 ML SYRINGE IV PRN ×2 (05:12→09:11)
[2020-05-15] MEDS: DEXTROSE 5%-0.45% NACL 1,000 ML IV SCH ×3 (05:15→20:37)
[2020-05-15 07:38] LABS: Basophils % (A) 0 %; Eosinophils # (A) 0.1 k/uL (0-0.7); Eosinophils % (A) 1 %; HCT 32.9 % (34.0-46.0); Lymphocytes # (A) 1.4 k/uL (1.0-4.8); Lymphocytes % (A) 15 %; MCHC 33.5 g/dL (31.0-37.0); Mean Platelet Volume 7.5; Monocytes # (A) 0.4 k/uL (0-1.0); Monocytes % (A) 4 %; Neutrophils # (A) 7.1 k/uL (1.3-7.7); Neutrophils % (A) 78 %; Platelet Count 298 k/uL (150-450); RBC 3.67 m/uL (3.80-5.40); RDW 14.3 % (11.5-15.5); WBC 9.1 k/uL (3.8-10.6)
[2020-05-15 07:44] LABS: MCV 89.6 fL (80.0-100.0)
[2020-05-15] MEDS: HEPARIN SODIUM,PORCINE 5,000 UNIT/ML 1 ML VIAL SQ SCH ×2 (08:11→18:09)
[2020-05-15] MEDS: valACYclovir 500 MG TAB PO SCH (09:08)
--- NOTE | 2020-05-15 10:06 | P.PN ---
Subjective Progress Note Date: 05/15/20 Principal diagnosis: Postop day #1 bilateral mastectomy, right sentinel node biopsy Esmer is a 55-year-old -[place] female postop day #1 bilateral mastectomy and right sentinel node biopsy. She is doing well without any complaints. She is still requiring IV pain medication. She has [address] ALEXYS drain #1 20 mL ALEXYS drain #2 25 mL ALEXYS drain #3 20 mL ALEXYS drain #4 25 mL All drainage is serous in nature. The patient's hemoglobin is 11, her white count is 9.1. Objective - Vital Signs Vital signs: Vital Signs Temp 99.2 F 05/15/20 08:30 Pulse 108 H 05/15/20 08:30 Resp 14 05/15/20 08:30 BP 97/65 05/15/20 08:30 Pulse Ox 99 05/15/20 08:30 Intake & Output 05/14/20 05/15/20 05/15/20 18:59 06:59 18:59 Intake Total 2150 Output Total 60 235 Balance 2089 - Weight 89 kg 89 kg Intake: IV 2150 Output: Drainage 135 #1 30 #2 35 #3 30 #4 40 Urine 100 Estimated Blood Loss 60 Other: # Voids 1 - Constitutional General appearance: Present: obese - EENT Eyes: Present: EOMI ENT: Present: hearing grossly normal - Neck Neck: Present: normal ROM - Respiratory Respiratory: bilateral: CTA - Cardiovascular Rhythm: regular Heart sounds: normal: S1, S2 - Integumentary Integumentary Comment(s): Incision clean and dry bilaterally,No evidence of hematoma or infection ALEXYS drains intact holding suction with no difficulty, total ALEXYS output 90 mL serous in nature - Musculoskeletal Musculoskeletal: Present: gait normal - Psychiatric Psychiatric: Present: A&O x's 3, appropriate affect, intact judgment & insight - Labs CBC & Chem 7: 05/15/20 07:03 Labs: Abnormal Lab Results - Last 24 Hours (Table) 05/15/20 Range/Units 07:03 RBC 3.67 L (3.80-5.40) m/uL Hgb 11.0 L (11.4-16.0) gm/dL Hct 32.9 L (34.0-46.0) % Assessment and Plan Assessment: Impression: 1. Patient postop day #1 bilateral mastectomy with right sentinel node biopsy 2. Patient still requiring IV pain medication Plan: 1. Probable discharge tomorrow 2. Change IV heparin lock 3. Continue present therapy
[2020-05-15] MEDS ORDERED: CYCLOBENZAPRINE 5 MG TAB PO PRN (11:34)
[2020-05-15] MEDS ORDERED: ZOLPIDEM 5 MG TAB PO PRN (11:34)
[2020-05-15] MEDS ORDERED: LORATADINE 10 MG TAB PO PRN (11:34)
[2020-05-15] MEDS: HYDROcodone/APAP 5-325MG 1 EACH TAB PO PRN ×3 (13:26→22:26)
[2020-05-15] MEDS ORDERED: NON FORMULARY DRUG (Acetaminophen/Diphenhydramine [Tylenol Pm 500-25mg] 1 EACH Tablet) PO SCH (21:00)
[2020-05-16] MEDS: DEXTROSE 5%-0.45% NACL 1,000 ML IV SCH (01:29)
[2020-05-16] MEDS: HYDROcodone/APAP 5-325MG 1 EACH TAB PO PRN ×5 (01:30→17:44)
[2020-05-16] MEDS: HEPARIN SODIUM,PORCINE 5,000 UNIT/ML 1 ML VIAL SQ SCH ×3 (01:30→16:03)
--- NOTE | 2020-05-16 08:20 | P.PN ---
Subjective Progress Note Date: 05/16/20 Principal diagnosis: Postop day #2 bilateral mastectomy, right sentinel node biopsy Esmer is a 55-year-old -[place] female postop day # bilateral mastectomy and right sentinel node biopsy. She is doing well without any complaints. She is not requiring IV pain medication at this time. She has [address] ALEXYS drain #1 30 mL ALEXYS drain #2 10 mL ALEXYS drain #3 29 mL ALEXYS drain #4 15 mL All drainage is serous in nature. The patient's hemoglobin was 11, her white c ount was 9.1 on 05-15-20. Objective - Vital Signs Vital signs: Vital Signs Temp 98.3 F 05/16/20 01:32 Pulse 83 05/16/20 01:32 Resp 16 05/16/20 01:32 BP 109/71 05/16/20 01:32 Pulse Ox 99 05/16/20 01:32 Intake & Output 05/15/20 05/16/20 05/16/20 18:59 06:59 18:59 Intake Total 500 Output Total 967 157 Balance -467 -157 Intake: Oral 500 Output: Drainage 167 157 #1 47 50 #2 30 20 #3 45 57 #4 45 30 Urine 800 Other: Voiding Method Toilet # Voids 1 - Exam BMI 34.8 - Constitutional General appearance: Present: obese - EENT Eyes: Present: EOMI ENT: Present: hearing grossly normal - Neck Neck: Present: normal ROM - Respiratory Respiratory: bilateral: CTA - Cardiovascular Rhythm: regular Heart sounds: normal: S1, S2 - Integumentary Integumentary Comment(s): Dressing clean and dry ALEXYS output is serous in nature - Labs CBC & Chem 7: 05/15/20 07:03 Assessment and Plan Assessment: Impression: 1. Patient postop day #2 bilateral mastectomy with right sentinel node biopsy 2. Patient on oral pain medication Plan: 1. Probable discharge home 2. Teach patient drain care 3. Follow-up with Dr. Poe
--- NOTE | 2020-05-16 08:22 | P.DS ---
Providers Attending physician: Ruby Marks Consults: 05/14/20 17:04 Consult Physician Routine Consulting Provider: Kenneth Lugo Consult Reason/Comments: medical managment Do you want consulting provider notified?: Yes Primary care physician: Kenneth Lugo Plan - Discharge Summary Discharge Rx Participant: No New Discharge Prescriptions: No Action valACYclovir [Valtrex] 500 mg PO DAILY Loratadine [Claritin] 10 mg PO DAILY PRN PRN Reason: bone pain Acetaminophen/Diphenhydramine [Tylenol PM 500-25mg] 1 tab PO HS Cyclobenzaprine [Flexeril] 5 mg PO HS PRN PRN Reason: neuropathy Zolpidem [Ambien] 5 mg PO HS PRN PRN Reason: Insomnia Discharge Medication List valACYclovir [Valtrex] 500 mg PO DAILY 12/30/19 [History] Acetaminophen/Diphenhydramine [Tylenol PM 500-25mg] 1 tab PO HS 03/22/20 [History] Cyclobenzaprine [Flexeril] 5 mg PO HS PRN 03/22/20 [History] Loratadine [Claritin] 10 mg PO DAILY PRN 03/22/20 [History] Zolpidem [Ambien] 5 mg PO HS PRN 04/18/20 [History] Follow up Appointment(s)/Referral(s): Ruby Marks MD [STAFF PHYSICIAN] - 1 Week Activity/Diet/Wound Care/Special Instructions: late discharge today Teach patient drain care; drain and record output every day Do not drive until seen by Dr. Lui Hoover shower after 48 hours Discharge Disposition: HOME SELF-CARE
[2020-05-16] MEDS: valACYclovir 500 MG TAB PO SCH (08:48)
[2020-05-16] MEDS ORDERED: valACYclovir 500 MG TAB PO SCH (09:00)
[2020-05-16] MEDS ORDERED: ACETAMINOPHEN TAB 500 MG TAB PO PRN (11:46)
[2020-05-16 12:57] VITALS: TEMP 98.6
[2020-05-16 15:35] VITALS: BP 107/64; PULSE 82; RESP 14
--- NOTE | 2020-05-16 19:55 | PN ---
PROGRESS NOTE DATE OF SERVICE: 05/15/2020 CHIEF COMPLAINT: Status post right mastectomy. HISTORY OF PRESENT ILLNESS: This lady is doing fairly well. She has a fair amount of discomfort, but she has had no nausea, fever, chills, etc. PHYSICAL EXAMINATION: Breath sounds are heard bilaterally and the cardiac exam is normal. The chest is dressed. IMPRESSION: Status post right mastectomy. PLAN: Follow as outpatient once she is released. MMODL / IJN: [id number] /
--- NOTE | 2020-05-16 20:18 | PN ---
PROGRESS NOTE DATE OF SERVICE: 05/16/2020 CHIEF COMPLAINT: Status post right mastectomy. HISTORY OF PRESENT ILLNESS: This lady is doing fairly well but still having some discomfort. She expects to go home today. PHYSICAL EXAMINATION: Chest is clear. Cardiac exam is normal. Abdomen is soft, nontender. IMPRESSION: Status post right mastectomy. PLAN: Probably home today. MMODL / IJN: [id number] /
--- NOTE | 2020-05-16 20:33 | CONS ---
CONSULTATION CHIEF COMPLAINT: Carcinoma of the right breast. HISTORY OF PRESENT ILLNESS: This lady is in for an elective right mastectomy. She has undergone radiation and chemo for triple-negative breast cancer. REVIEW OF SYSTEMS: She has had no headaches, neurologic problems, change in vision or hearing, chest pain, shortness of breath, cough, heart disease, murmurs, rheumatic fever, abdominal pain, nausea, vomiting, hematemesis, melena, hematochezia, jaundice, hepatitis, cirrhosis, hematuria, renal failure, frequency, urgency, diabetes, etc. Past medical history, family history, and personal and social histories are unremarkable otherwise and can be found in her admitting summary. She is ALLERGIC TO IV CONTRAST MATERIAL, SULFA, ERYTHROMYCIN, PENICILLIN, CODEINE AND MORPHINE. She is currently only on Ambien 5 mg, vitamin D3, cyclobenzaprine 3 times a day p.r.n., and Valtrex 1 gram twice a day p.r.n. PHYSICAL EXAMINATION: Blood pressure is 131/64 with a pulse of 76, respirations of 15. She is afebrile. In general she appeared to be well developed, well nourished, in no acute distress. Skin color was normal. Skin was warm and dry. Lymph nodes were not enlarged. Head, ears, eyes, nose, mouth and throat were normal. Neck veins were not distended. Thyroid was not enlarged. Chest was clear. Cardiac exam was normal. Abdomen was soft and nontender. There were no masses or visceromegaly. Bowel sounds were present. Extremities were normal. Neurological she is intact. She is admitted to the hospital with the diagnosis: Carcinoma of the right breast. PLAN: No change in operative plan at this time. MMODL / IJN: [id number] /
== END 2020-05-16 18:40 | disposition home or self-care (01) ==
LOC: OR 08:12 → 6PED 17:31 → OR 05-16 18:40
PROVIDERS: ATTEND Surgery
DX: C50.911 Malignant neoplasm of unspecified site of right female breast (principal); N60.12 Diffuse cystic mastopathy of left breast; N60.11 Diffuse cystic mastopathy of right breast; D24.1 Benign neoplasm of right breast; Z17.1 Estrogen receptor negative status [ER-]; Q07.00 Arnold-Chiari syndrome without spina bifida or hydrocephalus; K21.9 Gastro-esophageal reflux disease without esophagitis; G62.0 Drug-induced polyneuropathy; T45.1X5S Adverse effect of antineoplastic and immunosuppressive drugs, sequela; Z79.899 Other long term (current) drug therapy; Z88.5 Allergy status to narcotic agent; Z88.0 Allergy status to penicillin; Z88.2 Allergy status to sulfonamides; Z88.1 Allergy status to other antibiotic agents; Z91.041 Radiographic dye allergy status; Z92.3 Personal history of irradiation; Z92.21 Personal history of antineoplastic chemotherapy; Z86.19 Personal history of other infectious and parasitic diseases; Z87.42 Personal history of other diseases of the female genital tract; Z80.49 Family history of malignant neoplasm of other genital organs; Z80.3 Family history of malignant neoplasm of breast; Z80.0 Family history of malignant neoplasm of digestive organs; Z80.8 Family history of malignant neoplasm of other organs or systems; Z90.710 Acquired absence of both cervix and uterus; Z90.49 Acquired absence of other specified parts of digestive tract; Z98.890 Other specified postprocedural states
CPT/HCPCS: 85025; 38792; 19303; 14000 ×2; 38525; 36590; A9520; J2250; J0360; J1644 ×3; J1100; J2710; J0690; J2405; J2001; J3010; J1170 ×3; J0330; J2704; 88307; 88309; 88341; 88342

== ENCOUNTER → 2020-06-06 | Outpatient (CLI) | payer OTHER ==
--- NOTE | 2020-06-06 09:46 | P.PN ---
Progress Note - Text Progress Note Date: 06/06/20 Esmer is a 55 year old female status post bilateral mastectomy and right sentinel node biopsy on [id number]. Pathology revealed 6 axillary lymph nodes total all negative for cancer. Additionally in the right breast invasive poorly differentiated ductal carcinoma was identified grade 3 margins were negative. In the right breast benign breast with fibrocystic changes. The size of the tumor was 5 mm. She is status post neoadjuvant chemotherapy. The patient post procedure is doing well she does have some complaints of decreased mobility of the right arm and tenderness with movement in the upper arm. She had a bilateral V-Y advancement flap in the axilla and there is some mild skin necro sis in the superior ligament both the right and left side. Physical exam: Lungs: Clear Heart: Regular rate and rhythm Incisions: Clean and dry bilateral with some mild skin breakdown on the superior limb of the V-Y advancement flap on both sides Impression: 55-year-old female doing well after bilateral mastectomy. Pathology reviewed. Patient will continue to follow with medical oncology and have recommended an appointment with radiation oncology, although do not think radiation will be necessary. The patient has been recommended to follow-up with physical therapy and will consult lymphedema specialist as there is some concern about swelling in the right arm otherwise physical exam it does not appear present. CC: Dr. Lugo
[2020-06-06 10:12] VITALS: BP 114/75; PULSE 97; RESP 18; TEMP 98.3
== END | disposition home or self-care (01) ==
LOC: WWCWWP 09:05
PROVIDERS: ATTEND Surgery
DX: Z53.9 Procedure and treatment not carried out, unspecified reason (principal)

== ENCOUNTER → 2020-06-13 | Outpatient (CLI) | payer OTHER ==
[2020-06-13 10:14] VITALS: BP 121/81; PULSE 91; RESP 18; TEMP 98.4
--- NOTE | 2020-06-13 10:47 | P.PN ---
Progress Note - Text Progress Note Date: 06/13/20 Esmer is a 55 year old black female status post bilateral mastectomy with sentinel biopsy and [id number]. Pathology revealed 6 axillary nodes total of negative for cancer. Additionally in the right breast invasive poorly differentiated ductal carcinoma was identified. Margins were negative. In the left breast the tissue revealed benign breast tissue. The patient postprocedure developed some difficulty with mobility in her right arm and is being seen by physical therapy. She has a small seroma in the left chest wall. She also has noted some breakdown of the lateral aspects of both incisions at the V-Y flap sites. She has had no fever or chills. She was seen by radiation oncology and told she did not need any radiation therapy. Physical exam: Lungs: Clear Heart: Regular rate and rhythm Incision: Bilateral incisions clean and dry mild superficial skin breakdown at the lateral aspect of the V-Y flap which is healing without difficulty at the left chest wall there is a small seroma and we discussed aspiration of this Aspiration of seroma: 18-gauge needle and 60 mL syringe inserted into the area of fluctuance after was cleaned with alcohol 65 mL of straw-colored fluid was obtained with resolution of the seroma doing well postprocedure continue present therapy Follow-up in 2 weeks CC: Dr. Lugo
== END | disposition home or self-care (01) ==
LOC: WWCWWP 09:31
PROVIDERS: ATTEND Surgery
DX: Z53.9 Procedure and treatment not carried out, unspecified reason (principal)

== ENCOUNTER → 2020-06-27 | Outpatient (CLI) | payer OTHER ==
[2020-06-27 11:41] VITALS: BP 108/74; PULSE 88; RESP 16; TEMP 98.6
--- NOTE | 2020-06-27 11:55 | P.PN ---
Progress Note - Text Progress Note Date: 06/27/20 Esmer is a 55 year old black female status post bilateral mastectomy with sentinel biopsy and [id number]. Pathology revealed 6 axillary nodes all negative for cancer. Additionally in the right breast invasive poorly differentiated ductal carcinoma was identified. Margins were negative. In the left breast the tissue revealed benign breast tissue. The patient postprocedure developed some difficulty with mobility in her right arm and is being seen by physical therapy, this has improved. She has a small seroma in the left chest wall which is stable. She had also noted some breakdown of the lateral aspects of both incisions at the V-Y flap sites, it is improved with complete healing of the right side. She has had no fever or chills. She was seen by radiation oncology and told she did not need any radiation therapy. She is following with medical oncology. Patient states her back is feeling better. Physical exam: Lungs: Clear Heart: Regular rate and rhythm Incision: Bilateral incisions clean and dry mild superficial skin breakdown at the lateral aspect of the V-Y flap on the left; small seroma left not for aspiration today patient doing well postprocedure continue present therapy Follow-up in 4 weeks CC: Dr. Lugo
== END | disposition home or self-care (01) ==
LOC: WWCWWP 11:17
PROVIDERS: ATTEND Surgery
DX: Z53.9 Procedure and treatment not carried out, unspecified reason (principal)

== ENCOUNTER → 2020-07-09 | Outpatient (CLI) | payer OTHER ==
--- NOTE | 2020-07-09 20:18 | CT ---
EXAMINATION TYPE: CT brain wo con DATE OF EXAM: 07/09/2020 COMPARISON: 04/09/2015. HISTORY: Headache since bilat mastectomy on 05-17-20. History of breast ca and Arnold Chiari malforma tion with surgery. CT DLP: 1025.5 mGycm Automated exposure control for dose reduction was used. FINDINGS: There is no acute intracranial hemorrhage, mass effect, midline shift or hydrocephalus. The white mat ter is grossly preserved. The paranasal sinuses and mastoid air cells are adequately aerated. No acut e osseous abnormality. Prior suboccipital craniectomy again seen. IMPRESSION: NO ACUTE INTRACRANIAL ABNORMALITY.
== END | disposition home or self-care (01) ==
LOC: RADCTMAIN 18:06
PROVIDERS: ATTEND Family Medicine
DX: C50.919 Malignant neoplasm of unspecified site of unspecified female breast (principal); R51.9 Headache, unspecified; Z88.0 Allergy status to penicillin; Z88.1 Allergy status to other antibiotic agents; Z88.2 Allergy status to sulfonamides; Z88.5 Allergy status to narcotic agent; Z91.041 Radiographic dye allergy status
CPT/HCPCS: 70450

== ENCOUNTER → 2020-08-02 | Outpatient (CLI) | payer OTHER ==
[2020-08-02 12:56] VITALS: BP 138/82; PULSE 95; RESP 18; TEMP 98.9
--- NOTE | 2020-08-02 13:19 | P.PN ---
Subjective Progress Note Date: 08/02/20 Principal diagnosis: Surveillance for stage IIA right breast cancer stage IIA right breast cancer stage IIA right breast cancer [id number] stage IIA right breast cancer Esmer is a 55-year-old -[place] female who was diagnosed with a poorly differentiated right breast invasive ductal carcinoma on . This is grade 3 ER/WA and HER-2 negative and the size was approximately 2.7 cm. She has received Adriamycin and Cytoxan., followed by taxol. Her last chemotherapy was March 21, 2020. She has had a PET scan performed in November 2019 which did not show any evidence of metastatic disease and also was negative in the axilla. After the first chemotherapy treatment the patient had a urinary tract infection and bilateral ear infections attributed to the chemotherapy. After the second chemotherapy the patient had a leukocytosis with a white count of 49,000 and required hospitalization for 5 days. After the third course of chemotherapy the patient had dizziness and inability to stand for a long period of time. After her fourth dose of chemotherapy she was given IV fluids for dehydration secondary to vomiting. She then started Taxol which she completed March 21. She developed neuropathy with a Taxol as well as bone pain and nausea and diarrhea. She will got neulasta on March 22. She had genetic testing performed and this was negative for the BRACA gene, this was done on 12-07-19. [place] [address] which revealed nonspecific nodularity, she is going to follow up with this with DR. Sterling, she is going to follow up with this after her breast cancer treatment. She underwent bilateral mastectomy with sentinel node biopsy in [id number]. Pathology revealed 6 axillary nodes all negative for cancer. Additionally in the right breast invasive poorly differentiated ductal cancer was identified. Margins were negative. In the left breast the tissue was benign. The patient following the procedure developed some difficulty with mobility with her right arm and was seen by physical therapy. Mobility has improved. She is continuing to do physical therapy. She does complain of some mild swelling of her right forearm. She has been seen by physical therapy and has been given a prescription for a elastic sleeve. Note from Dr. Sterling from [id number] is reviewed., medical oncology. She has not had any radiation therapy, she was seen by radiation oncology and it was felt she did not need any radiation therapy. At this time she is not receiving any chemo, hormonal, or radiation therapy. She went for measuring her bra last week. Family history: Mother: Cervical: Cancer, bilateral buttock cancers, colon cancer Maternal cousin: Breast cancer Surgical history: 1. Partial hysterectomy 42 for fibroid tumors 2. Right breast biopsy 2. Appendectomy 4. Lumbar Left arm 5. Arnold-Chiari malformation brain surgery in 2006 Medical history: 1. Arnold-Chiari malformation spatial issues muscle weakness right side of the body and poor balance Social history: Smoke: Negative Alcohol: Occasional Drugs: Negative review of systems HEENT: Arnold-Chiari malformation/status post surgery Decreased hearing Headaches at times, Dizziness Breasts: As per HPI Cardiovascular: Negative Mesentery: Negative GI: Constipation : Negative Musculoskeletal: Weakness on the right side, low back pain Integument: Negative Neurologic: Weakness and dizziness Psychiatric: Anxiety Endocrine: The changed Hematologic: Negative ALLERGIES: Seasonal ALLERGIES Objective - Vital Signs Vital signs: Vital Signs Temp 98.9 F 08/02/20 12:51 Pulse 95 08/02/20 12:51 Resp 18 08/02/20 12:51 BP 138/82 08/02/20 12:51 Pulse Ox 100 08/02/20 12:51 Intake & Output 08/01/20 08/02/20 08/02/20 18:59 06:59 18:59 Weight 74.843 kg - Exam BMI 29 - Constitutional General appearance: Present: average body habitus - EENT Eyes: Present: EOMI ENT: Present: hearing grossly normal - Neck Neck: Present: normal ROM - Respiratory Respiratory: bilateral: CTA - Cardiovascular Rhythm: regular Heart sounds: normal: S1, S2 - Gastrointestinal General gastrointestinal: Present: soft - Integumentary Integumentary Comment(s): Incision: Clean and dry bilateral, no evidence of any recurrent cancer she does have bilateral axillary dogears which she states bother her at times Integumentary: Present: normal turgor - Musculoskeletal Musculoskeletal Comment(s): forearm: right: 20 cm left: 19 1/2 cm mild lymphedema Musculoskeletal: Present: gait normal - Psychiatric Psychiatric: Present: A&O x's 3, appropriate affect, intact judgment & insight - Additional findings Additional findings: Chest wall: Right chest wall no evidence of any recurrent cancer, incision clean and dry well-healed Right axilla: No adenopathy of concern Left chest wall: Incision clean and dry well-healed Left axilla: No adenopathy of concern right forearm slightly larger than left forearm measured as below Right forearm: 20 cm Left forearm 19.5 cm Assessment and Plan Assessment: Impression: 1. Patient status post bilateral mastectomy for stage II a right breast cancer, no evidence of any recurrent cancer 2. Patient is finish course of chemo therapy 3. Patient not felt to be candidate for radiation therapy 4. Patient has bilateral axillary dogears which bother her 5. lymphedema to follow with physical therapy Plan: 1. Patient is losing weight and after she was at that day she wants to be if she still has concerns regarding the axillary redundant tissue would consider revision 2. Have offered her to see a plastic surgeon if she is concerned about the axillary tissue at this time she has declined 3. Follow-up here in 4 months 4. continue to follow with physical therapy regarding lymhedema CC: Dr. Lugo encounter 20 minutes, time spent in physical exam, reviewing medical records, and counselling.
== END ==
LOC: WWCWWP 12:41
PROVIDERS: ATTEND Surgery
DX: C50.911 Malignant neoplasm of unspecified site of right female breast (principal); Z51.11 Encounter for antineoplastic chemotherapy; I89.0 Lymphedema, not elsewhere classified; Z87.440 Personal history of urinary (tract) infections

== ENCOUNTER 2020-09-01 09:55 | Emergency (ER) | payer OTHER ==
[2020-09-01 10:19] VITALS: BP 119/71; PULSE 80; RESP 18; TEMP 98.7
--- NOTE | 2020-09-01 10:54 | ED ---
Fall HPI - General Chief Complaint: Fall Stated Complaint: Fell,side pain Time Seen by Provider: 09/01/20 10:21 Source: patient, RN notes reviewed Mode of arrival: wheelchair Limitations: no limitations - History of Present Illness Initial Comments: 55-year-old female presents emergency Department chief complaint of a fall. Patient states she got up quickly this morning in which she states that she get is a. Patient states she went down states that she slipped striking her head. Patient states that she did not pass out. Patient mild headache mild neck pain. Patient states that she has right-sided rib pain pain with deep inspiration. Denies any chest pain. Patient states that she takes Ambien and this causes her to be dizzy. She states is episode was not on the usual. Patient offers no complaints. - Related Data Home Medications Medication Instructions Recorded Confirmed valACYclovir [Valtrex] 500 mg PO DAILY 12/30/19 08/02/20 Acetaminophen/Diphenhydramine 1 tab PO HS 03/22/20 08/02/20 [Tylenol PM 500-25mg] Cyclobenzaprine [Flexeril] 5 mg PO HS PRN 03/22/20 08/02/20 Loratadine [Claritin] 10 mg PO DAILY PRN 03/22/20 08/02/20 Zolpidem [Ambien] 5 mg PO HS PRN 04/18/20 08/02/20 Allergies Allergy/AdvReac Type Severity Reaction Status Date / Time adhesive Allergy Rash/Hives Verified 09/01/20 10:19 amoxicillin Allergy Rash/Hives Verified 09/01/20 10:19 codeine Allergy Hallucinati Verified 09/01/20 10:19 ons duloxetine [From Cymbalta] Allergy Hallucinati Verified 09/01/20 10:19 ons erythromycin base Allergy Rash/Hives Verified 09/01/20 10:19 Iodinated Contrast Media Allergy Rash/Hives Verified 09/01/20 10:19 morphine Allergy Hallucinati Verified 09/01/20 10:19 ons Sulfa (Sulfonamide Allergy Rash/Hives Verified 09/01/20 10:19 Antibiotics) sulfamethoxazole Allergy Rash/Hives Verified 09/01/20 10:19 [From Bactrim] trimethoprim [From Bactrim] Allergy Rash/Hives Verified 09/01/20 10:19 Review of Systems ROS Statement: Those systems with pertinent positive or pertinent negative responses have been documented in the HPI. ROS Other: All systems not noted in ROS Statement are negative. Past Medical History Past Medical History: Cancer, GERD/Reflux Additional Past Medical History / Comment(s): Arnold Chiari Malformation; HSV type 2; right breast cancer History of Any Multi-Drug Resistant Organisms: None Reported Past Surgical History: Appendectomy, Breast Surgery, Hysterectomy Additional Past Surgical History / Comment(s): brain surgery 2007, partial hysterectomy, hx. benign right breast needle biopsy. double masectomy Past Anesthesia/Blood Transfusion Reactions: Motion Sickness, Postoperative Nausea & Vomiting (PONV) Past Psychological History: No Psychological Hx Reported, Anxiety Smoking Status: Never smoker Past Alcohol Use History: None Reported, Occasional Past Drug Use History: None Reported - Past Family History Mother Family Medical History: Cancer Additional Family Medical History / Comment(s): Cervical, Uterine & Colon Cancer. General Exam Limitations: no limitations General appearance: alert, in no apparent distress Head exam: Present: atraumatic, normocephalic, normal inspection Eye exam: Present: normal appearance, PERRL, EOMI. Absent: scleral icterus, conjunctival injection, periorbital swelling ENT exam: Present: normal exam, mucous membranes moist Neck exam: Present: normal inspection, tenderness (Mild right paraspinal), full ROM. Absent: meningismus, lymphadenopathy Respiratory exam: Present: normal lung sounds bilaterally, chest wall tenderness (Moderate right-sided rib tenderness). Absent: respiratory distress, wheezes, rales, rhonchi, stridor Cardiovascular Exam: Present: regular rate, normal rhythm, normal heart sounds. Absent: systolic murmur, diastolic murmur, rubs, gallop, clicks GI/Abdominal exam: Present: soft, normal bowel sounds. Absent: distended, tenderness, guarding, rebound, rigid Neurological exam: Present: alert, oriented X3, CN II-XII intact, reflexes normal. Absent: motor sensory deficit Course Vital Signs 09/01/20 10:13 Temperature 98.7 F Pulse Rate 80 Respiratory 18 Rate Blood Pressure 119/71 O2 Sat by Pulse 100 Oximetry Medical Decision Making - Medical Decision Making 55-year-old female presented for a fall CT and x-rays are negative. Patient discharged stable condition return parameters were discussed. Disposition Clinical Impression: Fall, Contusion of rib on right side, Head injury Disposition: HOME SELF-CARE Condition: Stable Instructions (If sedation given, give patient instructions): Rib Contusion (ED) Additional Instructions: Please return to the Emergency Department if symptoms worsen or any other concerns. Is patient prescribed a controlled substance at d/c from ED?: No Referrals: Kenneth Lugo MD [Primary Care Provider] - 1-2 days Time of Disposition: 11:53
--- NOTE | 2020-09-01 11:36 | CT ---
EXAMINATION TYPE: CT brain cspine wo con DATE OF EXAM: 09/01/2020 COMPARISON: Brain 07/09/2020 HISTORY: 55-year-old female Fall, BOJORQUEZ CT DLP: 1338.5 mGycm Automated exposure control for dose reduction was used. Technique: Examination of the head was done in axial plane without intravenous contrast. Coronal and sagittal reconstructions performed. CT of the cervical spine was obtained in axial plane without intravenous injection of contrast mater ial. Coronal and sagittal reformatted images were obtained from the axial views for evaluation of f ractures, spinal alignment and canal. FINDINGS: Head: There is no evidence of acute intracranial hemorrhage, acute ischemic changes, mass, mass-effect, or extra-axial fluid collection. There is no effacement of cerebral sulci or basal subarachnoid cister ns. There is no hydrocephalus. There is no midline shift. Rose-white matter distinction is preserv ed. Postsurgical change of lower posterior occipital decompression. Partially empty sella Paranasal sinuses and mastoid air cells are pneumatized. Orbits and globes are intact. Cervical spine: No craniocervical junction abnormality, predental space widening, or prevertebral soft tissue swellin g. Degenerative changes of the C1 dens articulation. Reversal of the normal cervical lordosis. Preserved alignment. Mild to moderate degenerative disc disease C4-C5 and C5-C6 with discussed by complex cyst, largest at C5-C6 where there is moderate spinal canal stenosis. Mild spinal canal stenosis at C4-C5. Mild left neuroforaminal narrowing on both sides that C5-C6. No acute fracture of the cervical spine. Sagittal and coronal reformatted images confirm above findings. COMBINED IMPRESSION: 1. Previous Chiari I decompression surgery redemonstrated. No acute intracranial abnormality seen. 2. No acute fracture or malalignment of the cervical spine. Reversal of the normal cervical lordosis could be positional or due to muscle spasm. 3. Disc osteophyte complex at C5-C6 may cause a moderate spinal canal stenosis. Mild at C4-C5.
--- NOTE | 2020-09-01 11:48 | XR ---
EXAMINATION TYPE: XR ribs RT w pa chest xray DATE OF EXAM: 09/01/2020 COMPARISON: 12/30/2019 HISTORY: 55-year-old female fall and right-sided rib pain TECHNIQUE: 5 views FINDINGS: The cardiomediastinal silhouette, aorta, and pulmonary vasculature are within normal limits. Lungs an d pleural spaces are clear. No displaced rib fractures seen. IMPRESSION: No acute cardiopulmonary process. No displaced right rib fracture seen.
== END 2020-09-01 12:30 | disposition home or self-care (01) ==
LOC: EC 09:55
DX: S20.211A Contusion of right front wall of thorax, initial encounter (principal); S09.90XA Unspecified injury of head, initial encounter; Z79.899 Other long term (current) drug therapy; Z91.048 Other nonmedicinal substance allergy status; Z88.0 Allergy status to penicillin; Z88.5 Allergy status to narcotic agent; Z88.2 Allergy status to sulfonamides; Z88.1 Allergy status to other antibiotic agents; Z91.041 Radiographic dye allergy status; Z88.8 Allergy status to other drugs, medicaments and biological substances; Z85.3 Personal history of malignant neoplasm of breast; W01.198A Fall on same level from slipping, tripping and stumbling with subsequent striking against other object, initial encounter
CPT/HCPCS: 70450; 72125; 99284

== ENCOUNTER → 2020-09-20 | Outpatient (CLI) | payer OTHER ==
--- NOTE | 2020-09-22 17:27 | MR ---
EXAMINATION TYPE: MR brain wo/w con DATE OF EXAM: 09/20/2020 COMPARISON: 05/23/2014 HISTORY: 55 year-old female history of breast cancer, headache, dizziness TECHNIQUE: Multiplanar, multisequence images of the brain and brainstem were acquired before and aft er administration of 7 mL IV Gadavist. Diffusion weighted imaging is performed. FINDINGS: No evidence for acute infarction, hemorrhage, mass, mass effect, midline shift, herniation, effacemen t of basal cisterns, or extra-axial fluid collection. The ventricles and sulci are age-appropriate. Major intracranial flow voids are intact. T2/FLAIR weighted sequences show no significant white matter signal abnormality. Midline structures demonstrate stable partially empty sella but otherwise normal morphology. Redemon strated postsurgical change of Chiari decompression surgery. The cerebellar tonsils remain slightly l ow lying but the decompression continues to relieve any excessive crowding. Post contrast images demonstrate no evidence of pathologic enhancement. Dural venous sinuses are pat ent. The visualized sinuses are clear and the globes are intact. IMPRESSION: No evidence for brain metastases or otherwise any acute intracranial abnormality. Stable postsurgical change of prior Chiari decompression.
== END | disposition home or self-care (01) ==
LOC: RADMRIMAIN 10:35
PROVIDERS: ATTEND Internal Medicine Hematology & Oncology
DX: R42 Dizziness and giddiness (principal); Z85.3 Personal history of malignant neoplasm of breast
CPT/HCPCS: 70553; A9585

== ENCOUNTER → 2020-12-06 | Outpatient (CLI) | payer OTHER ==
--- NOTE | 2020-12-06 16:18 | PE ---
Nuclear medicine PET/CT HISTORY: Right breast carcinoma, subsequent Patient received 11.6 mCi F-18 FDG intravenously delayed scanning was performed from the skull base t o the mid thighs. An attenuation correction, localization CT scan was also performed. prior medicine PET/CT 12/05/2019 Chest and neck: In the supraclavicular location on the left likely at the level of the upper pole the left lobe of the thyroid gland there is a focus of hypermetabolic uptake, SUV 4.9. No cervical adeno babatunde. There is no mediastinal, axillary, or hilar adenopathy, no suspicious uptake. There is no pleu ral or pericardial effusion. No evident lung mass. Breast tissue is not seen. ABDOMEN: There is no evident liver mass, no retroperitoneal adenopathy, no ascites. No suspicious upt chin. Uterus and adnexal structures are not seen. Osseous structures show no suspicious uptake. Degenerative disc changes and facet arthropathy noted i n the lower lumbar spine. IMPRESSION: There is persistent abnormal uptake associated with the left lobe of the thyroid, correla te with thyroid ultrasound. Status post bilateral mastectomies.
== END | disposition home or self-care (01) ==
LOC: RADPETMAIN 08:13
PROVIDERS: ATTEND Internal Medicine Hematology & Oncology
DX: R94.6 Abnormal results of thyroid function studies (principal); Z85.3 Personal history of malignant neoplasm of breast
CPT/HCPCS: 78815; A9552

== ENCOUNTER → 2020-12-06 | Outpatient (CLI) | payer OTHER ==
[2020-12-06 13:51] VITALS: BP 122/73; PULSE 80; RESP 18; TEMP 98.1
--- NOTE | 2020-12-06 14:30 | P.PN ---
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 This is grade 3 ER/DE and HER-2 negative and the size was approximately 2.7 cm. She has received Adriamycin and Cytoxan., followed by taxol. Her last chemotherapy was March 21, 2020. She has had a PET scan performed in November 2019 which did not show any evidence of metastatic disease and also was negative in the axilla. After the first chemotherapy treatment the patient had a urinary tract infection and bilateral ear infections attributed to the chemotherapy. After the second chemotherapy the patient had a leukocytosis with a white count of 49,000 and required hospitalization for 5 days. After the third course of chemotherapy the patient had dizziness and inability to stand for a long period of time. After her fourth dose of chemotherapy she was given IV fluids for dehydration secondary to vomiting. She then started Taxol which she completed March 21. She developed neuropathy with a Taxol as well as bone pain and nausea and diarrhea. She will got neulasta on February. She had genetic testing performed and this was negative for the BRACA gene, this was done on 12-07-19. [place] [id number] which revealed nonspecific nodularity, she is going to follow up with this with DR. Sterling, she is going to follow up with this after her breast cancer treatment. She has not had anything done with respect to this at this time. She underwent bilateral mastectomy with sentinel node biopsy in [id number]. Pathology revealed 6 axillary nodes all negative for cancer. Additionally in the right breast invasive poorly differentiated ductal cancer was identified. Margins were negative. In the left breast the tissue was benign. The patient following the procedure developed some difficulty with mobility with her right arm and was seen by physical therapy. Mobility has improved. She is continuing to do physical therapy. She does complain of some mild swelling of her right forearm. She has been seen by physical therapy and has been given a prescription for a elastic sleeve. Note from Dr. Sterling from 1117 is reviewed., medical oncology. She has not had any radiation therapy, she was seen by radiation oncology and it was felt she did not need any radiation therapy. At this time she is not receiving any chemo, hormonal, or radiation therapy. Mart pelletier went for measuring her bra last week. 12-06-20 Esmer comes in today for surveillance regarding her right breast cancer. She continues to have decreased mobility of the right arm. She is still in physical therapy. She noted a nodule in her right chest wall approximately 2 weeks ago. A PET/CT was done today to further evaluate that. She continues to use a elastic sleeve on the right arm although she does not complain of swelling in that arm. Family history: Mother: Cervical: Cancer, bilateral buttock cancers, colon cancer Maternal cousin: Breast cancer Surgical history: 1. Partial hysterectomy 42 for fibroid tumors 2. Right breast biopsy 2. Appendectomy 4. bilateral mastectomy/right axillary node resection 5. Arnold-Chiari malformation brain surgery in 2006 Medical history: 1. Arnold-Chiari malformation spatial issues muscle weakness right side of the body and poor balance Social history: Smoke: Negative Alcohol: Occasional Drugs: Negative review of systems HEENT: Arnold-Chiari malformation/status post surgery Decreased hearing Headaches at times, Dizziness Breasts: As per HPI Cardiovascular: Negative Mesentery: Negative GI: Constipation : Negative Musculoskeletal: Weakness on the right side, low back pain Integument: Negative Neurologic: Weakness and dizziness Psychiatric: Anxiety Endocrine: The changed Hematologic: Negative ALLERGIES: Seasonal ALLERGIES Objective - Vital Signs Vital signs: Vital Signs Temp 98.1 F 12/06/20 13:48 Pulse 80 12/06/20 13:48 Resp 18 12/06/20 13:48 BP 122/73 12/06/20 13:48 Pulse Ox 99 12/06/20 13:48 Intake & Output 12/05/20 12/06/20 12/06/20 18:59 06:59 18:59 Weight 69.853 kg - Exam BMI 26.4 - Constitutional General appearance: Present: average body habitus - EENT Eyes: Present: EOMI ENT: Present: hearing grossly normal - Neck Neck: Present: normal ROM - Respiratory Respiratory: bilateral: CTA - Cardiovascular Rhythm: regular Heart sounds: normal: S1, S2 - Gastrointestinal General gastrointestinal: Present: soft - Integumentary Integumentary: Present: normal turgor - Musculoskeletal Musculoskeletal: Present: gait normal - Psychiatric Psychiatric: Present: A&O x's 3, appropriate affect, intact judgment & insight - Additional findings Additional findings: chest wall: Incision across chest wall is clean and dry Right chest wall: The patient states that she felt some nodularity less than the size of the P however were not able to feel it on today's exam she did have a PET CT to further evaluate that; he does have a less than 8 mm area of tender nodularity just medial to the prior Port-A-Cath site Incision left chest wall clean and dry no evidence of recurrence Right axilla: No adenopathy of concern Left axilla: No adenopathy of concern Decreased mobility right shoulder Assessment and Plan Assessment: Impression: 1. Arnold-Chiari malformation spatial issues muscle weakness right side of the body and poor balance 2. Status post bilateral mastectomy staged IIA invasive ductal carcinoma triple negative right breast 3. Tender nodularity right chest wall just medial to the prior Port-A-Cath site 4. Decreased mobility right arm Plan: 1. Consider MRI of the right shoulder/ orthopedic surgery 2. PET/CT has been ordered; to follow nodularity 3. Continue to follow with Dr. Sterling 4. Follow up here after results of the following tests are obtained; about two weeks Time 25 minutes, time spent in reviewing medical records, examination,a nd counselling. Cc: Dr. Mathews
== END ==
LOC: WWCWWP 13:40
PROVIDERS: ATTEND Surgery
DX: N63.10 Unspecified lump in the right breast, unspecified quadrant (principal); M62.81 Muscle weakness (generalized); M25.811 Other specified joint disorders, right shoulder; Q07.00 Arnold-Chiari syndrome without spina bifida or hydrocephalus; Z90.13 Acquired absence of bilateral breasts and nipples; Z85.3 Personal history of malignant neoplasm of breast; Z91.048 Other nonmedicinal substance allergy status; Z88.1 Allergy status to other antibiotic agents; Z88.5 Allergy status to narcotic agent; Z88.8 Allergy status to other drugs, medicaments and biological substances; Z91.041 Radiographic dye allergy status; Z88.2 Allergy status to sulfonamides

== ENCOUNTER → 2020-12-11 | Outpatient (CLI) | payer OTHER ==
[2020-12-12 04:46] LABS: Egg White IgE <0.10 kU/L
[2020-12-12 04:47] LABS: Codfish IgE <0.10 kU/L
[2020-12-12 04:48] LABS: Peanut IgE <0.10 kU/L; Soybean IgE 0.17 kU/L
[2020-12-12 04:49] LABS: Clam IgE <0.10 kU/L; Scallop IgE <0.10 kU/L; Shrimp IgE <0.10 kU/L; Walnut IgE (Food) <0.10 kU/L
[2020-12-12 11:43] LABS: Alt. alternata IgE Class CLASS 0; Alternaria alternata IgE <0.10 kU/L (<0.10); Asperg. fumagatus IgE <0.10 kU/L (<0.10); Asperg. fumagatus IgE Class CLASS 0; Bermuda Grass IgE <0.10 kU/L (<0.10); Birch(Com.Silvr) IgE <0.10 kU/L (<0.10); Birch(Com.Silvr) IgE Class CLASS 0; Cat Epith & Dander IgE 1.02 kU/L (<0.10); Cat Epith & Dander IgE Class CLASS 2; Clad herbarum IgE <0.10 kU/L (<0.10); Clad herbarum IgE Class CLASS 0; Cockroach IgE 0.14 kU/L (<0.10); Cottonwood IgE 0.16 kU/L (<0.10); Dermato. Pteronyssinus Class CLASS 0/1; Dermato. Pteronyssinus IgE 0.12 kU/L (<0.10); Dermato. farinae IgE 0.11 kU/L (<0.10); Dermato. farinae IgE Class CLASS 0/1; Elm IgE 1.56 kU/L (<0.10); Maple (Box Elder) IgE 0.72 kU/L (<0.10); Maple (Box Elder) IgE Class CLASS 2; Mountain Cedar IgE 0.16 kU/L (<0.10); Mountain Cedar IgE Class CLASS 0/1; Mouse Urine IgE Class CLASS 0; Mouse Urine Proteins,IgE <0.10 kU/L (<0.10); Nettle IgE 0.29 kU/L (<0.10); Nettle IgE Class CLASS 0/1; Oak IgE <0.10 kU/L (<0.10); Penicillium chrysogenum IgE <0.10 kU/L (<0.10); Penicillium chrysogenum IgE Cl CLASS 0; Rough Marshelder IgE Class CLASS 2; Timothy Grass IgE <0.10 kU/L (<0.10); Timothy Grass IgE Class CLASS 0; White Ash IgE Class CLASS 0/1
== END | disposition home or self-care (01) ==
LOC: LABWHC1 11:39
PROVIDERS: ATTEND Family Medicine
DX: T78.40XA Allergy, unspecified, initial encounter (principal); R21 Rash and other nonspecific skin eruption
CPT/HCPCS: 36415; 82785; 86003

== ENCOUNTER 2021-01-23 13:10 | Emergency (ER) | payer OTHER ==
[2021-01-23 13:19] VITALS: TEMP 98.1
[2021-01-23 13:59] LABS: Basophils % (A) 1 %; Eosinophils # (A) 0.2 k/uL (0-0.7); Eosinophils % (A) 3 %; HCT 38.2 % (34.0-46.0); HGB 12.9 gm/dL (11.4-16.0); Lymphocytes # (A) 2.3 k/uL (1.0-4.8); Lymphocytes % (A) 38 %; MCH 29.2 pg (25.0-35.0); MCHC 33.7 g/dL (31.0-37.0); MCV 86.6 fL (80.0-100.0); Mean Platelet Volume 8.4; Monocytes # (A) 0.3 k/uL (0-1.0); Monocytes % (A) 5 %; Neutrophils # (A) 3.2 k/uL (1.3-7.7); Neutrophils % (A) 53 %; Platelet Count 284 k/uL (150-450); RBC 4.42 m/uL (3.80-5.40); RDW 14.7 % (11.5-15.5)
[2021-01-23] MEDS ORDERED: diphenhydrAMINE 50 MG/ML 1 ML VIAL IVP STA (14:03)
[2021-01-23] MEDS ORDERED: METOCLOPRAMIDE 5 MG/ML 2 ML VIAL IVP STA (14:03)
--- NOTE | 2021-01-23 14:15 | XR ---
EXAMINATION TYPE: XR chest 2V DATE OF EXAM: 01/23/2021 COMPARISON: NONE HISTORY: Chest pain TECHNIQUE: Frontal and lateral views of the chest are obtained. FINDINGS: There is no focal air space opacity. No evidence for pneumothorax. No pleural effusion. The cardiac silhouette size is within normal limits. The osseous structures are grossly intact. IMPRESSION: 1. No acute cardiopulmonary process.
[2021-01-23 14:22] LABS: ALT 19 U/L (4-34); AST 35 U/L (14-36); African American GFR (CKD) >90 (>60 ml/min/1.73 sqM); Albumin 4.5 g/dL (3.5-5.0); Alkaline Phosphatase 79 U/L (38-126); Anion Gap 8 mmol/L; Blood Urea Nitrogen 14 mg/dL (7-17); Calcium 10.2 mg/dL (8.4-10.2); Carbon Dioxide 27 mmol/L (22-30); Chloride 105 mmol/L (98-107); Glucose 89 mg/dL (74-99); Non-African American GFR(CKD) 90 (>60 ml/min/1.73 sqM); Potassium 3.8 mmol/L (3.5-5.1); Sodium 140 mmol/L (137-145); Total Protein 7.3 g/dL (6.3-8.2)
[2021-01-23 14:23] LABS: INR 0.9 (<1.2); Partial Thromboplastin Time 21.7 sec (22.0-30.0); Prothrombin Time 10.1 sec (9.0-12.0)
[2021-01-23 15:37] VITALS: BP 111/67; PULSE 67; RESP 12
--- NOTE | 2021-01-23 15:37 | ED ---
Chest Pain HPI - General Chief Complaint: Chest Pain Stated Complaint: chest pain & SOB Source: patient Mode of arrival: wheelchair Limitations: no limitations - History of Present Illness Initial Comments: Patient is a 55 year old female past medical history of breast cancer with bilateral mastectomy, Arnold-Chiari malformation who presents to the emergency department with reported left-sided chest wall pain. She reports that the pain started yesterday while she was walking. She usually walks 5 miles daily. States that she had some associated shortness of breath. Pain is reproducible upon palpation of her chest wall. Denies previous history of cardiac disease. No fevers, chills or cough. No history of DVT or PE. Patient denies any lower extremity swelling. Denies any radiation to her back. No numbness, tingling or weakness into her arms. She has not taken anything for the pain yet. No other alleviating, precipitating modifying factors - Related Data Home Medications Medication Instructions Recorded Confirmed valACYclovir [Valtrex] 500 mg PO DAILY 12/30/19 01/23/21 Zolpidem [Ambien] 5 mg PO HS PRN 04/18/20 01/23/21 Cholecalciferol (Vitamin D3) 125 mcg PO DAILY 01/23/21 01/23/21 [Vitamin D3 (125 MCG = 5,000 IU)] Allergies Allergy/AdvReac Type Severity Reaction Status Date / Time adhesive Allergy Rash/Hives Verified 01/23/21 15:29 amoxicillin Allergy Rash/Hives Verified 01/23/21 15:29 codeine Allergy Hallucinati Verified 01/23/21 15:29 ons duloxetine [From Cymbalta] Allergy Hallucinati Verified 01/23/21 15:29 ons erythromycin base Allergy Rash/Hives Verified 01/23/21 15:29 Iodinated Contrast Media Allergy Rash/Hives Verified 01/23/21 15:29 morphine Allergy Hallucinati Verified 01/23/21 15:29 ons Sulfa (Sulfonamide Allergy Rash/Hives Verified 01/23/21 15:29 Antibiotics) sulfamethoxazole Allergy Rash/Hives Verified 01/23/21 15:29 [From Bactrim] trimethoprim [From Bactrim] Allergy Rash/Hives Verified 01/23/21 15:29 Review of Systems ROS Statement: Those systems with pertinent positive or pertinent negative responses have been documented in the HPI. ROS Other: All systems not noted in ROS Statement are negative. EKG Findings - EKG Comments: EKG Findings:: EKG demonstrates a normal sinus rhythm with a ventricular rate of 80. IL interval 132. QRS 74. QTC 429. No acute ST segment elevations or depressions. Past Medical History Past Medical History: Cancer, GERD/Reflux Additional Past Medical History / Comment(s): Arnold Chiari Malformation; HSV type 2; right breast cancer History of Any Multi-Drug Resistant Organisms: None Reported Past Surgical History: Appendectomy, Breast Surgery, Hysterectomy Additional Past Surgical History / Comment(s): brain surgery 2007, partial hysterectomy, hx. benign right breast needle biopsy. double masectomy Past Anesthesia/Blood Transfusion Reactions: Motion Sickness, Postoperative Nausea & Vomiting (PONV) Past Psychological History: No Psychological Hx Reported, Anxiety Smoking Status: Never smoker Past Alcohol Use History: None Reported, Occasional Past Drug Use History: None Reported - Past Family History Mother Family Medical History: Cancer Additional Family Medical History / Comment(s): Cervical, Uterine & Colon Cancer. General Exam Limitations: no limitations Course Vital Signs 01/23/21 01/23/21 01/23/21 13:16 14:00 14:30 Temperature 98.1 F Pulse Rate 73 71 68 Respiratory 18 8 L 15 Rate Blood Pressure 111/69 115/62 112/73 O2 Sat by Pulse 100 99 99 Oximetry 01/23/21 01/23/21 15:00 15:30 Temperature Pulse Rate 66 67 Respiratory 12 12 Rate Blood Pressure 118/71 111/67 O2 Sat by Pulse 100 100 Oximetry Chest Pain MDM - MDM On arrival patient is placed into room 17. Thorough history and physical exam was performed. IV is established laboratory studies were conducted. I did offer the patient having for pain control. She is requesting something for her headache. States she gets frequent headaches due to her Arnold-Chiari malformation. Patient is given 2.5 mg of Benadryl and 10 g of Reglan. Laboratory studies are conducted. Pelvic EKG was performed. Patient remains the cardiac technician. Chest x-ray was also performed. Laboratory studies reveal a d-dimer of 0.18. Troponin less than 0.012. Chest x-ray demonstrates no acute intrathoracic process. Results are discussed the patient. Did recommend hospitalization in order to trend her troponins and have a cardio evaluation however patient was fusing. She does have an ultrasound for her thyroid at 340 and is requesting that she be able to go to this appointment. I did discuss with the patient the risks of leaving without further evaluation the patient understood this and accepted the risks. Patient needs to follow up with her primary care physician and had a full cardiac workup performed. Return to the emergency room for any new or worsening symptoms. Patient agreed to this was discharged home in stable condition Disposition Clinical Impression: Chest pain Disposition: HOME SELF-CARE Condition: Stable Instructions (If sedation given, give patient instructions): Chest Pain (ED) Additional Instructions: Please follow-up with your primary care doctor in 2-4 days. I do recommend an echo and Holter monitoring of your heart. Return to the emergency room for any new or worsening symptoms Is patient prescribed a controlled substance at d/c from ED?: No Referrals: Kenneth Lugo MD [Primary Care Provider] - 1-2 days Time of Disposition: 15:37
== END 2021-01-23 15:40 | disposition home or self-care (01) ==
LOC: EC 13:10
DX: R07.89 Other chest pain (principal); R06.02 Shortness of breath; K21.9 Gastro-esophageal reflux disease without esophagitis
CPT/HCPCS: 36415; 85379; 83880; 80053; 83735; 84484; 85025; 85610; 85730; 71046; 99285; 96374; 96375; J1200; J2765; 93005

== ENCOUNTER → 2021-01-23 | Outpatient (CLI) | payer OTHER ==
--- NOTE | 2021-01-23 17:19 | US ---
EXAMINATION TYPE: US thyroid st tissue head/neck DATE OF EXAM: 01/23/2021 COMPARISON: US CLINICAL HISTORY: E04.2 Nontoxic multinodular goiter. F/U nodules GLAND SIZE: Right Lobe: 4.5 x 1.4 x 1.5 cm Overall Parenchyma: homogenous Left Lobe: 4.8 x 1.3 x 1.6 cm Overall Parenchyma: homogeneous Isthmus Thickness: 0.3 cm NODULES RIGHT: # of nodules measured on right: 2 1. 0.3 X 0.1 x 0.3 cm, mid, mixed cystic and solid, hypoechoic nodule, which is wider than tall, wi th smooth margins, without echogenic foci. Prior size: 0.3 x 0.2 x 0.2 cm 2. 0.5 X 0.2 x 0.3 cm, mid, mixed cystic and solid, hypoechoic nodule, which is wider than tall, wi th ill-defined margins, without echogenic foci. Prior size: 0.3 x 0.2 x 0.2 cm LEFT: # of nodules measured on left: 1 1. 0.8 X 0.6 x 0.5 cm, mid, solid or almost completely solid, hypoechoic nodule, which is wider demario n tall, with smooth margins, without echogenic foci. Prior size: 0.8 x 0.5 x 0.5 cm Two, small colloid cysts also measured within left lobe 1)= 0.2 cm (previous 0.3 cm) 2)= 0.3 cm (previous 0.4 cm) Bilateral neck scanned, no evidence of lymphadenopathy. Sub-centimeter nodules bilaterally. IMPRESSION: Dominant nodule subcentimeter in size in the left lobe shows a similar appearance, moderately suspici ous, follow-up ultrasound recommended in one year 2017 ACR TI-RADS LEVEL: TR 4 *Highest TI-RADS level nodule reported
== END | disposition home or self-care (01) ==
LOC: RADUSWWP 15:42
PROVIDERS: ATTEND Internal Medicine
DX: E04.2 Nontoxic multinodular goiter (principal)
CPT/HCPCS: 76536

== ENCOUNTER → 2021-04-14 | Outpatient (CLI) | payer OTHER ==
--- NOTE | 2021-04-14 09:26 | USB ---
Reason for exam: clinical finding. History: Patient is postmenopausal and has history of breast cancer at age 54. Family history of breast cancer in maternal cousin. Mastectomy of both breasts, April 2020. Malignant US biopsy breast VAD RT of the right breast, November 15, 2019. Benign US right guided VAD of the right breast, November 04, 2009. Benign excisional biopsy of the right breast, 1999. Excisional biopsy of the left breast, 1979. Indicated problem(s): large axillary lymph nodes and pain in both breasts. Physical Findings: Nurse Summary: bilateral axilla and mastectomy scars, painful (nurse dw). US Breast Axilla LT Right breast axilla ultrasound demonstrates no cystic or solid lesion seen. Left breast axilla ultrasound demonstrates a 1.1 x 0.8 x 1.5cm lymph node at the axilla. This is borderline in size but has a heterogeneous fatty hilum. No abnormal cortical thickening. Likely reactive 3 month follow up. These results were verbally communicated with the patient and result sheet given to the patient on 04/14/21. ASSESSMENT: Probably benign, BI-RAD 3 RECOMMENDATION: Ultrasound of the left breast in 3 months. Manage on a clinical basis with regard to breast pain and lymphedema.
--- NOTE | 2021-04-14 09:28 | USB ---
Reason for exam: clinical finding. History: Patient is postmenopausal and has history of breast cancer at age 54. Family history of breast cancer in maternal cousin. Mastectomy of both breasts, April 2020. Malignant US biopsy breast VAD RT of the right breast, November 15, 2019. Benign US right guided VAD of the right breast, November 04, 2009. Benign excisional biopsy of the right breast, 1999. Excisional biopsy of the left breast, 1979. Indicated problem(s): large axillary lymph nodes and pain in both breasts. Physical Findings: Nurse Summary: bilateral axilla and mastectomy scars painful (nurse dw). US Breast Axilla RT Right breast axilla ultrasound demonstrates no cystic or solid lesion seen. Left breast axilla ultrasound demonstrates a 1.1 x 0.8 x 1.5cm lymph node at the axilla. This is borderline in size but has a heterogeneous fatty hilum. No abnormal cortical thickening. Likely reactive 3 month follow up. These results were verbally communicated with the patient and result sheet given to the patient on 04/14/21. ASSESSMENT: Probably benign, BI-RAD 3 RECOMMENDATION: Clinical management of the right breast. Follow up ultrasound of the left breast in 3 months. Manage on a clinical basis with regard to breast pain and lymphedema.
== END | disposition home or self-care (01) ==
LOC: RADUSWWP 07:00
PROVIDERS: ATTEND Internal Medicine Hematology & Oncology
DX: R92.2 Inconclusive mammogram (principal); N64.4 Mastodynia; Z85.3 Personal history of malignant neoplasm of breast; Z80.3 Family history of malignant neoplasm of breast

== ENCOUNTER → 2021-05-02 | Outpatient (CLI) | payer OTHER ==
--- NOTE | 2021-05-02 10:16 | XR ---
EXAMINATION TYPE: XR chest 2V DATE OF EXAM: 05/02/2021 COMPARISON: Chest x-ray January 23, 2021. HISTORY: Shortness of breath. Left shoulder pain. History of bilateral mastectomy 2019 for breast can cer. TECHNIQUE: Frontal and lateral views of the chest are obtained. FINDINGS: There is no new suspicious focal air space opacity, pleural effusion, or pneumothorax seen . The cardiac silhouette size is stable and within normal limits. The osseous structures are intac t. IMPRESSION: No acute process. No significant change from prior.
== END | disposition home or self-care (01) ==
LOC: RADXRMAIN 09:41
PROVIDERS: ATTEND Nurse Practitioner Adult Health
DX: R06.02 Shortness of breath (principal); M25.512 Pain in left shoulder; Z85.3 Personal history of malignant neoplasm of breast
CPT/HCPCS: 71046

== ENCOUNTER 2021-06-10 10:23 | Day surgery (SDC) | payer OTHER ==
[2021-06-05 11:59] VITALS: BMI 27.3
[~2021-06-10 10:23] MED LIST changes: -DEXAMETHASONE SOD PHOSPHATE 4 MG/ML 1 ML VIAL IV ONE; -HEPARIN SODIUM,PORCINE 5,000 UNIT/ML 1 ML VIAL SQ PRN; +LACTATED RINGERS 1,000 ML IV SCH; -MIDAZOLAM 2 MG/2 ML VIAL IV PRN; -ONDANSETRON 4 MG/2 ML VIAL IVP ONE
[2021-06-10 11:07] VITALS: RESP 16; TEMP 98.5
[2021-06-10] MEDS ORDERED: MIDAZOLAM 2 MG/2 ML VIAL IVP ONE (11:14)
[2021-06-10] MEDS ORDERED: LIDOCAINE 1% INJ 10MG/ML (20 ML MDV) ONE (12:08)
[2021-06-10] MEDS ORDERED: PROPOFOL 10 MG/ML 20 ML VIAL IV ONE (12:08)
--- NOTE | 2021-06-10 12:21 | P.PCN ---
Date of Procedure: 06/10/21 Procedure(s) Performed: Preoperative Dx: Bloating, epigastric pain Postoperative Dx: Minimal gastritis, small sliding hiatal hernia, mild distal esophagitis Procedure: EGD with Bx Anesthesia: Sedation Endoscopist: Dr. Davis Specimens: Antrum, GE junction Endoscopic Procedure: The patient was on the endoscopy table in the left decubitus position. The Olympus gastroscope was inserted into the oropharynx and passed under direct visualization to the region of the third portion of the duodenum. From that point the scope was slowly withdrawn inspecting all surfaces carefully. There were no neoplastic inflammatory or polypoid lesions throughout the duodenum. The pylorus was widely patent. The stomach was carefully inspected. There was minimal gastritis present. A biopsy of the antrum took place to rule out H. pylori. Retroflexion revealed a small sliding hiatal hernia. The GE junction was present 1 cm above the diaphragmatic hiatus. There was circumferential inflammation at the GE junction itself. The remainder the esophagus appear normal. The patient was then taken to the recovery room in stable condition per anesthesia guidelines. Recommendations: Await biopsy results. Antiacid therapy.
[2021-06-10 12:45] VITALS: BP 147/76; PULSE 72
== END 2021-06-10 13:56 | disposition home or self-care (01) ==
LOC: ORWHC2ENDO 10:23
PROVIDERS: ATTEND Surgery
DX: K29.50 Unspecified chronic gastritis without bleeding (principal); K20.90 Esophagitis, unspecified without bleeding; K44.9 Diaphragmatic hernia without obstruction or gangrene; I25.10 Atherosclerotic heart disease of native coronary artery without angina pectoris; E78.5 Hyperlipidemia, unspecified; J45.909 Unspecified asthma, uncomplicated; Z85.3 Personal history of malignant neoplasm of breast; F41.9 Anxiety disorder, unspecified; M19.90 Unspecified osteoarthritis, unspecified site; E07.9 Disorder of thyroid, unspecified; Q07.00 Arnold-Chiari syndrome without spina bifida or hydrocephalus; D64.9 Anemia, unspecified; K59.00 Constipation, unspecified; B00.9 Herpesviral infection, unspecified; Z79.899 Other long term (current) drug therapy; Z90.710 Acquired absence of both cervix and uterus; Z88.1 Allergy status to other antibiotic agents; Z91.040 Latex allergy status; Z88.5 Allergy status to narcotic agent; Z88.0 Allergy status to penicillin; Z88.2 Allergy status to sulfonamides; Z88.8 Allergy status to other drugs, medicaments and biological substances; Z91.09 Other allergy status, other than to drugs and biological substances
CPT/HCPCS: 88305; 43239; J2250; J2001; J2704

== ENCOUNTER → 2021-06-20 | Outpatient (CLI) | payer OTHER ==
--- NOTE | 2021-06-20 08:16 | US ---
EXAMINATION TYPE: US abdomen complete DATE OF EXAM: 06/20/2021 COMPARISON: PET scan December 06, 2020, whole body CT February 07, 2013 CLINICAL HISTORY: R10.9. Patient stated feels abd. bloating post bilateral mastectomies; thyroid nodu les EXAM MEASUREMENTS: Liver Length: 12.4 cm Gallbladder Wall: 0.2 cm CBD: 0.3 cm Spleen: 8.0 x 7.1 x 1.9 cm Right Kidney: 9.1 x 4.9 x 3.6 cm Left Kidney: 9.1 x 3.9 x 5.0 cm Pancreas: wnl Liver: no masses are seen Gallbladder: wnl Evidence for sonographic Wynn's sign: no CBD: wnl Spleen: wnl Right Kidney: No hydronephrosis or masses seen Left Kidney: No hydronephrosis or masses seen Upper IVC: wnl Abd Aorta: wnl Peristalsing bowel is noted para umbilical area of bloating. The visualized liver is homogenous. The intrahepatic portion of the IVC and visualized abdominal aor ta are within normal limits. There is no evidence of cholelithiasis. Common bile duct is unremarkab le. The visualized portions of the pancreas are homogenous. The spleen is unremarkable. Kidneys ar e symmetric and free of hydronephrosis. No renal lesions are seen. IMPRESSION: No acute findings are evident. No ventral wall hernia on the last images obtained.
== END | disposition home or self-care (01) ==
LOC: RADUSWWP 06:59
PROVIDERS: ATTEND Internal Medicine Hematology & Oncology
DX: R10.9 Unspecified abdominal pain (principal)
CPT/HCPCS: 76700

== ENCOUNTER → 2021-07-18 | Outpatient (CLI) | payer OTHER ==
--- NOTE | 2021-07-18 15:57 | NM ---
EXAMINATION TYPE: NM bone scan whole body DATE OF EXAM: 07/18/2021 COMPARISON: NONE HISTORY: Breast carcinoma Delayed whole-body scanning was performed following the injection of 24.2 mCi Tc 99m MDP. Images acq uired 3 hours post injection. FINDINGS: There is degenerative uptake about the shoulders, sternoclavicular joints, knees, wrists and ankles. No intense uptake to suggest metastatic disease at this time. IMPRESSION: No scintigraphic evidence to suggest metastatic disease.
== END | disposition home or self-care (01) ==
LOC: RADNMMAIN 10:36
PROVIDERS: ATTEND Internal Medicine Hematology & Oncology
DX: C50.411 Malignant neoplasm of upper-outer quadrant of right female breast (principal)
CPT/HCPCS: 78306; A9503

== ENCOUNTER → 2021-07-26 | Outpatient (CLI) | payer OTHER ==
--- NOTE | 2021-07-26 23:22 | MR ---
EXAMINATION TYPE: MR brain/cspine wo/w DATE OF EXAM: 07/26/2021 COMPARISON: HISTORY: History of breast cancer 2020, severe headaches, nausea, dizziness, fatigue, pain down both arms to fingers. History of chiari malformation decompression CONTRAST: Standard multiplanar, multisequence MRI departmental protocol images were obtained without contrast a nd with 7.5 mL intravenous Gadavist gadolinium contrast. Ventricles have normal size. There is no mass effect or midline shift. There is no sign of intracrani al hemorrhage. Diffusion images show no evidence of acute infarct. The brainstem is intact. The delgado and white matter structures have fairly normal signal pattern. There is no evidence of cerebral edema . Corpus callosum appears normal. Sella turcica is normal. There is no evidence of orbital mass. Contrast images show no pathologic enhancement of the brain. There is normal enhancement of the venou s sinuses. There is apparent craniotomy at the occipital bone. Cerebellum appears normal. The cervical vertebra have normal alignment. Disc spaces are fairly normal. There is slight narrowing of C5-6 disc space. There are small posterior disc herniations at C4-5 and C5-6 and C6-7. There is s frances stenosis and spinal canal narrowed to 5.5 mm at C5-6. This is the narrowest point. Canal measur es 6.5 mm at C4-5. Canal measures 8 mm at C6-7. Cervical cord shows no edema. Contrast images show no pathologic cervical spine enhancement. IMPRESSION: Negative MR scan of the brain. No evidence of metastatic disease. Previous surgery. Mild degenerative disc narrowing in the cervical spine with posterior multilevel cervical disc hernia tions. There is 5.5 mm C5-6 spinal stenosis but no cord edema. Mild flattening of the cervical cord s een at C4-5 and C5-6.
== END | disposition home or self-care (01) ==
LOC: RADMRIMAIN 13:50
PROVIDERS: ATTEND Internal Medicine Hematology & Oncology
DX: C50.411 Malignant neoplasm of upper-outer quadrant of right female breast (principal); M50.222 Other cervical disc displacement at C5-C6 level; M48.02 Spinal stenosis, cervical region
CPT/HCPCS: 70553; 72156; A9585

== ENCOUNTER → 2021-08-18 | Outpatient (CLI) | payer OTHER ==
--- NOTE | 2021-08-18 18:52 | US ---
EXAMINATION TYPE: US pelvis complete transvag DATE OF EXAM: 08/18/2021 COMPARISON: NONE CLINICAL HISTORY: 56-year-old R10.2 Pelvic pain. Partial hysterectomy- still has both ovaries. Hx br east cancer. TECHNIQUE: Transvaginal (TV) and Transabdominal (TA) . Transabdominal sonographic images of the pel vis were acquired. Transvaginal sonographic images were medically necessary to better assess the fol lowing anatomy: Ovaries Date of LMP: Hysterectomy FINDINGS: EXAM MEASUREMENTS: 1. Uterus: Surgically absent 2. Right Ovary: Obscured by overlying bowel gas 3. Left Ovary: Obscured by overlying bowel gas 4. Bilateral Adnexa: wnl 5. Posterior cul-de-sac: no free fluid IMPRESSION: 1. Status post hysterectomy. 2. Neither ovary could be visualized due to obscuration from bowel gas.
== END | disposition home or self-care (01) ==
LOC: RADUSWWP 14:17
PROVIDERS: ATTEND Family Medicine
DX: R10.2 Pelvic and perineal pain (principal); Z90.710 Acquired absence of both cervix and uterus
CPT/HCPCS: 76830; 76856

== ENCOUNTER → 2021-08-18 | Outpatient (CLI) | payer OTHER ==
--- NOTE | 2021-08-20 12:27 | USB ---
Reason for exam: clinical finding. History: Patient is postmenopausal and has history of breast cancer at age 54. Family history of breast cancer in maternal cousin. Mastectomy of both breasts, April 2020. Malignant US biopsy breast VAD RT of the right breast, November 15, 2019. Benign US right guided VAD of the right breast, November 04, 2009. Benign excisional biopsy of the right breast, 1999. Excisional biopsy of the left breast, 1979. Physical Findings: A clinical breast exam by your physician is recommended on an annual basis and results should be correlated with mammographic findings. US Breast Axilla LT Technologist: Breanne Eli Left breast axilla ultrasound demonstrates a 1.3 x 0.8 x 0.8cm lymph node at the axilla versus 1.3 x 1.2 x 0.7cm 1 month ago. Thin cortex, preserved hilum. Stable to smaller. Precautionary 3 month follow up. ASSESSMENT: Probably benign, BI-RAD 3 RECOMMENDATION: Ultrasound of the left breast in 3 months.
== END | disposition home or self-care (01) ==
LOC: RADUSWWP 14:15
PROVIDERS: ATTEND Internal Medicine Hematology & Oncology
DX: Z78.0 Asymptomatic menopausal state (principal); M79.622 Pain in left upper arm; Z85.3 Personal history of malignant neoplasm of breast; Z80.3 Family history of malignant neoplasm of breast

== ENCOUNTER → 2021-09-26 | Outpatient (CLI) | payer OTHER ==
--- NOTE | 2021-09-26 13:33 | US ---
EXAMINATION TYPE: US chest DATE OF EXAM: 09/26/2021 COMPARISON: CT February 07, 2013 CLINICAL HISTORY: R22.2 LOCALIZED SWELLING, MASS AND LUMP, TRUNK. Patient states she felt a painful c hest lump on her sternum 1 week ago Chest/sternum: 0.9 x 0.8 x 1.0cm anechoic area seen at patient's palpable In the deep subcutaneous tissue there is 1.0 cm round circumscribed anechoic lesion abutting the ante rior surface of the deep muscles presumed pectoralis muscles. No significant posterior acoustic enhan cement or shadowing. IMPRESSIONS: As above. Suspect thin-walled cyst or focal fluid collection however given patient's his tory of breast cancer and bilateral mastectomy along with pain at site of palpable abnormality, I stephanie bello consider attempted ultrasound-guided fine-needle aspiration to rule out infection or developing ab scess. If lesion does not aspirate or a solid recurrent breast carcinoma would be in differential and biopsy sampling would be advised.
== END | disposition home or self-care (01) ==
LOC: RADUSWWP 12:42
PROVIDERS: ATTEND Internal Medicine Hematology & Oncology
DX: R22.2 Localized swelling, mass and lump, trunk (principal); Z85.3 Personal history of malignant neoplasm of breast; Z90.13 Acquired absence of bilateral breasts and nipples
CPT/HCPCS: 76604

== ENCOUNTER 2021-10-28 08:13 | Day surgery (SDC) | payer OTHER ==
[2021-10-28 08:56] VITALS: RESP 16; TEMP 98.1
[2021-10-28 09:48] VITALS: BP 114/67; PULSE 76
--- NOTE | 2021-10-28 10:02 | US ---
EXAMINATION TYPE: US FNA first lesion DATE OF EXAM: 10/28/2021 HISTORY: Anterior chest mass. FINDINGS: Maximal barrier technique was utilized. Hand hygiene achieved with soap and water. The ski n overlying a suitable path to the patient's mass along the anterior chest in the midline] was locali zed with ultrasound and the overlying skin prepped and draped. Ultrasound was utilized with sterile technique. Lidocaine was used for local anesthesia. A skin shola was made with a scalpel. A 23-gaug e needle was advanced under direct ultrasound guidance and aspirated specimen obtained of the mass. M ilky apprearing fluid, 2cc obtained. Specimen submitted to Pathology. Following the procedure, hemo stasis achieved and the patient is discharged in stable condition without complication. No residual l esion following aspiration. IMPRESSION:STATUS POST ULTRASOUND AND FINE-NEEDLE ASPIRATION BIOPSY OF anterior chest MASS, PATHOLOGY IS PENDING. THIS PROCEDURE IS PERFORMED BY THE UNDERSIGNED.
== END 2021-10-28 09:50 | disposition home or self-care (01) ==
LOC: RADPROMAIN 08:13
PROVIDERS: ATTEND Surgery
DX: R22.2 Localized swelling, mass and lump, trunk (principal); Z88.0 Allergy status to penicillin; Z88.2 Allergy status to sulfonamides; Z88.5 Allergy status to narcotic agent; Z88.8 Allergy status to other drugs, medicaments and biological substances; Z91.041 Radiographic dye allergy status; Z91.040 Latex allergy status; Z79.899 Other long term (current) drug therapy
CPT/HCPCS: 10005; 87070; 87075; 87205; 88173

== ENCOUNTER → 2021-11-07 | Outpatient (CLI) | payer OTHER ==
--- NOTE | 2021-11-07 16:46 | US ---
EXAMINATION TYPE: US axilla LT DATE OF EXAM: 11/07/2021 COMPARISON: US: 08/18/21 CLINICAL HISTORY: M79.622 PAIN IN LEFT UPPER ARM. Patient had hx of breast cancer in 2021. Double mas tectomy done April of 2020. 2 lymph nodes were visualized. Largest measuring 1.4 x 1.2 x 0.7cm, previously measuring 1.3 x 1.2 x 0.7cm IMPRESSION: 1. Clinical management.
== END | disposition home or self-care (01) ==
LOC: RADUSWWP 08:59
PROVIDERS: ATTEND Internal Medicine Hematology & Oncology
DX: M79.622 Pain in left upper arm (principal); Z85.3 Personal history of malignant neoplasm of breast; Z90.13 Acquired absence of bilateral breasts and nipples

== ENCOUNTER 2022-01-16 08:50 | Emergency (ER) | payer OTHER ==
[2022-01-16 09:03] VITALS: BP 120/68; PULSE 68; RESP 20; TEMP 98.1
[2022-01-16] MEDS ORDERED: ONDANSETRON 4 MG/2 ML VIAL IVP STA (09:17)
[2022-01-16] MEDS ORDERED: SODIUM CHLORIDE 0.9% 1,000 ML IV STA (09:17)
[2022-01-16] MEDS ORDERED: KETOROLAC 15 MG/ML 1 ML VIAL IVP STA (09:18)
[2022-01-16] MEDS ORDERED: FAMOTIDINE 20 MG/2 ML VIAL IV STA (09:18)
--- NOTE | 2022-01-16 09:24 | ED ---
Abdominal Pain HPI - General Chief Complaint: Abdominal Pain Stated Complaint: abd pain Time Seen by Provider: 01/16/22 09:12 Source: patient, RN notes reviewed Mode of arrival: ambulatory Limitations: no limitations - History of Present Illness Initial Comments: This is a 56-year-old female who presents to the emergency department for epigastric pain. Patient states that this has been present for approximately one week, however last night it got substantially worse. States that she feels pressure, and a sensation of constantly needing to have a bowel movement. She is having regular bowel movements. The pain is now radiating into her back. States that she has never had symptoms like this before. She has associated nausea but no vomiting. She does have a headache, but states that this is likely due to clenching her teeth from the pain. Also states that she feels hot and cold constantly, but her thermometer has never measured a fever. Denies any fevers, sore throat, cough, dyspnea, chest pain, palpitations, vomiting, or diarrhea. MD Complaint: abdominal pain Onset/Timin -: week(s) Location: epigastric Radiation: back Quality: fullness Consistency: constant Associated Symptoms: nausea - Related Data Home Medications Medication Instructions Recorded Confirmed valACYclovir HCL [Valtrex] 500 mg PO DAILY 12/30/19 01/16/22 Zolpidem [Ambien] 5 mg PO HS 04/18/20 01/16/22 Previous Rx's Medication Instructions Recorded Famotidine 40 mg PO QAM #21 tablet 01/16/22 Hyoscyamine Sulfate [Levsin] 0.125 mg PO Q6H PRN #20 tab 01/16/22 Ondansetron Odt [Zofran Odt] 4 mg PO Q8HR PRN #30 tab 01/16/22 cefUROXime axetiL [Ceftin] 500 mg PO BID 7 Days #14 tab 01/16/22 Allergies Allergy/AdvReac Type Severity Reaction Status Date / Time adhesive Allergy Rash/Hives Verified 01/16/22 11:38 amoxicillin Allergy Rash/Hives Verified 01/16/22 11:38 duloxetine [From Cymbalta] Allergy Hallucinati Verified 01/16/22 11:38 ons erythromycin base Allergy Rash/Hives Verified 01/16/22 11:38 Iodinated Contrast Media Allergy Rash/Hives Verified 01/16/22 11:38 latex Allergy Rash/Hives Verified 01/16/22 11:38 Sulfa (Sulfonamide Allergy Rash/Hives Verified 01/16/22 11:38 Antibiotics) sulfamethoxazole Allergy Rash/Hives Verified 01/16/22 11:38 [From Bactrim] trimethoprim [From Bactrim] Allergy Rash/Hives Verified 01/16/22 11:38 codeine AdvReac Vomiting Verified 01/16/22 11:38 morphine AdvReac Hallucinati Verified 01/16/22 11:38 ons Review of Systems ROS Statement: Those systems with pertinent positive or pertinent negative responses have been documented in the HPI. ROS Other: All systems not noted in ROS Statement are negative. Past Medical History Past Medical History: Asthma, Cancer, Chest Pain / Angina, GERD/Reflux, Hyperlipidemia, Osteoarthritis (OA), Pneumonia, Thyroid Disorder Additional Past Medical History / Comment(s): Arnold Chiari Malformation; HSV type 2; right breast cancer , occ migraines, hx seizures around 1999 after brain surgery, constipation, hx anemia, thryoid nodules History of Any Multi-Drug Resistant Organisms: None Reported Past Surgical History: Appendectomy, Breast Surgery, Hysterectomy Additional Past Surgical History / Comment(s): brain surgery 2006, hx. benign right breast needle biopsy. andrea masectomy 2019, left axilla lymph enlarged, chest mass Past Anesthesia/Blood Transfusion Reactions: Motion Sickness, Postoperative Nausea & Vomiting (PONV) Past Psychological History: Anxiety Smoking Status: Never smoker Past Alcohol Use History: Occasional Past Drug Use History: None Reported - Past Family History Mother Additional Family Medical History / Comment(s): Cervical, Uterine & Colon Cancer. General Exam Limitations: no limitations General appearance: alert, in no apparent distress Head exam: Present: atraumatic, normocephalic, normal inspection Respiratory exam: Present: normal lung sounds bilaterally. Absent: respiratory distress, wheezes, rales, rhonchi, stridor Cardiovascular Exam: Present: regular rate, normal rhythm, normal heart sounds. Absent: systolic murmur, diastolic murmur, rubs, gallop, clicks GI/Abdominal exam: Present: soft, tenderness (epigastric), normal bowel sounds. Absent: distended, guarding, rebound, rigid Neurological exam: Present: alert, oriented X3, CN II-XII intact Psychiatric exam: Present: normal affect, normal mood Skin exam: Present: warm, dry, intact, normal color. Absent: rash Course Vital Signs 01/16/22 09:00 Temperature 98.1 F Pulse Rate 68 Respiratory 20 Rate Blood Pressure 120/68 O2 Sat by Pulse 99 Oximetry Medical Decision Making - Medical Decision Making This is a 56-year-old female who presents to the emergency department for epigastric pain. Lab work was nonactionable. Computed tomography scan of the abdomen and pelvis obtained, this revealed constipation and no other acute irregularities to account for her symptoms. Ultrasound of the gallbladder was also obtained, which revealed no evidence for acute cholecystitis or other irregularity. She was treated with IV fluids, Toradol, Zofran, and Pepcid. This did improve her symptoms temporarily. She was then given a GI cocktail, which she states was helpful. Discussed with the patient the possibility of a peptic ulcer or gastritis. States that she had an EGD with Dr. Davis earlier this year. She was told that she had esophagitis and possibly a peptic ulcer. She then mentioned that she had tomatoes for dinner the other night, which often flares up her acid reflux. She has taken pantoprazole in the past, but states that this caused too many side effects, so she stopped taking it. Prescription for Pepcid provided, advised she take this daily for 3 weeks. She was also given a prescription for Levsin to use as needed for the cramping/tightness in the abdomen. Additionally, Zofran was also prescribed for any continuation of the nausea. I did advise increasing her water and fiber intake as well as using [id number] MiraLAX for management of the constipation. Her urinalysis was consistent with possible UTI. Given that the patient is immunocompromised with the breast cancer and ongoing treatment, will prescribe a seven-day course of Ceftin. Advised to follow-up with Dr. Davis if the symptoms do not improve and further discuss them with her primary care provider. Return precautions reviewed in depth, the patient is instructed to return to the emergency department with any new, worsening, or concerning symptoms. Patient verbalized understanding. This case was discussed in detail with the attending ED physician. Presentation, findings, and treatment plan discussed in detail as well. - Lab Data Result diagrams: 01/16/22 09:30 01/16/22 09:30 Lab Results 01/16/22 01/16/22 01/16/22 Range/Units 09:30 09:30 09:30 WBC 4.7 (3.8-10.6) k/uL RBC 4.72 (3.80-5.40) m/uL Hgb 13.2 (11.4-16.0) gm/dL Hct 41.7 (34.0-46.0) % MCV 88.5 (80.0-100.0) fL MCH 28.0 (25.0-35.0) pg MCHC 31.6 (31.0-37.0) g/dL RDW 13.9 (11.5-15.5) % Plt Count 307 (150-450) k/uL MPV 8.4 Neutrophils % 41 % Lymphocytes % 46 % Monocytes % 4 % Eosinophils % 6 % Basophils % 1 % Neutrophils # 1.9 (1.3-7.7) k/uL Lymphocytes # 2.2 (1.0-4.8) k/uL Monocytes # 0.2 (0-1.0) k/uL Eosinophils # 0.3 (0-0.7) k/uL Basophils # 0.0 (0-0.2) k/uL Sodium 142 (137-145) mmol/L Potassium 4.1 (3.5-5.1) mmol/L Chloride 106 (98-107) mmol/L Carbon Dioxide 27 (22-30) mmol/L Anion Gap 9 mmol/L BUN 9 (7-17) mg/dL Creatinine 0.70 (0.52-1.04) mg/dL Est GFR (CKD-EPI)AfAm >90 (>60 ml/min/1.73 sqM) Est GFR (CKD-EPI)NonAf >90 (>60 ml/min/1.73 sqM) Glucose 85 (74-99) mg/dL Calcium 9.6 (8.4-10.2) mg/dL Total Bilirubin 1.2 (0.2-1.3) mg/dL AST 29 (14-36) U/L ALT 10 (4-34) U/L Alkaline Phosphatase 75 (38-126) U/L Troponin I <0.012 (0.000-0.034) ng/mL Total Protein 7.4 (6.3-8.2) g/dL Albumin 4.6 (3.5-5.0) g/dL Amylase 51 (30-110) U/L Lipase 44 (23-300) U/L Urine Color Urine Appearance (Clear) Urine pH (5.0-8.0) Ur Specific [place] (1.001-1.035) Urine Protein (Negative) Urine Glucose (UA) (Negative) Urine Ketones (Negative) Urine Blood (Negative) Urine Nitrite (Negative) Urine Bilirubin (Negative) Urine Urobilinogen (<2.0) mg/dL Ur Leukocyte Esterase (Negative) Urine RBC (0-5) /hpf Urine WBC (0-5) /hpf Ur Squamous Epith Cells (0-4) /hpf Urine Mucus (None) /hpf 01/16/22 Range/Units 10:40 WBC (3.8-10.6) k/uL RBC (3.80-5.40) m/uL Hgb (11.4-16.0) gm/dL Hct (34.0-46.0) % MCV (80.0-100.0) fL MCH (25.0-35.0) pg MCHC (31.0-37.0) g/dL RDW (11.5-15.5) % Plt Count (150-450) k/uL MPV Neutrophils % % Lymphocytes % % Monocytes % % Eosinophils % % Basophils % % Neutrophils # (1.3-7.7) k/uL Lymphocytes # (1.0-4.8) k/uL Monocytes # (0-1.0) k/uL Eosinophils # (0-0.7) k/uL Basophils # (0-0.2) k/uL Sodium (137-145) mmol/L Potassium (3.5-5.1) mmol/L Chloride (98-107) mmol/L Carbon Dioxide (22-30) mmol/L Anion Gap mmol/L BUN (7-17) mg/dL Creatinine (0.52-1.04) mg/dL Est GFR (CKD-EPI)AfAm (>60 ml/min/1.73 sqM) Est GFR (CKD-EPI)NonAf (>60 ml/min/1.73 sqM) Glucose (74-99) mg/dL Calcium (8.4-10.2) mg/dL Total Bilirubin (0.2-1.3) mg/dL AST (14-36) U/L ALT (4-34) U/L Alkaline Phosphatase (38-126) U/L Troponin I (0.000-0.034) ng/mL Total Protein (6.3-8.2) g/dL Albumin (3.5-5.0) g/dL Amylase (30-110) U/L Lipase (23-300) U/L Urine Color Yellow Urine Appearance Clear (Clear) Urine pH 6.0 (5.0-8.0) Ur Specific [place] 1.020 (1.001-1.035) Urine Protein Trace H (Negative) Urine Glucose (UA) Negative (Negative) Urine Ketones Negative (Negative) Urine Blood Moderate H (Negative) Urine Nitrite Negative (Negative) Urine Bilirubin Negative (Negative) Urine Urobilinogen <2.0 (<2.0) mg/dL Ur Leukocyte Esterase Large H (Negative) Urine RBC 20 H (0-5) /hpf Urine WBC 13 H (0-5) /hpf Ur Squamous Epith Cells 1 (0-4) /hpf Urine Mucus Moderate H (None) /hpf - Radiology Data Radiology results: report reviewed, image reviewed Disposition Clinical Impression: Constipation, UTI (urinary tract infection), Gastritis Disposition: HOME SELF-CARE Instructions (If sedation given, give patient instructions): Gastritis (ED), Constipation (ED), High Fiber Diet (ED), Diet for Stomach Ulcers and Gastritis (ED) Additional Instructions: Return to the emergency department with any new, worsening, or concerning sympto ms. Increase your water and fiber intake. Try taking MiraLAX or another qkru-ezk-wigmeks treatment to help with constipation. Begin taking the Pepcid each morning. Try to take this 30 minutes before eating and taking your other medications. Take the antibiotic as prescribed for 7 days. The Levsin can be taken every 6 hours as needed for the abdominal pain. Follow up with your primary care provider in 1-[address] Davis for a follow up if symptoms do not improve. Prescriptions: cefUROXime axetiL [Ceftin] 500 mg PO BID 7 Days #14 tab Famotidine 40 mg PO QAM #21 tablet Hyoscyamine Sulfate [Levsin] 0.125 mg PO Q6H PRN #20 tab PRN Reason: Pain Ondansetron Odt [Zofran Odt] 4 mg PO Q8HR PRN #30 tab PRN Reason: Nausea And Vomiting Is patient prescribed a controlled substance at d/c from ED?: No Referrals: Kenneth Lugo MD [Primary Care Provider] - 1-2 days
[2022-01-16 09:44] LABS: Basophils % (A) 1 %; Eosinophils # (A) 0.3 k/uL (0-0.7); Eosinophils % (A) 6 %; HCT 41.7 % (34.0-46.0); HGB 13.2 gm/dL (11.4-16.0); Lymphocytes # (A) 2.2 k/uL (1.0-4.8); Lymphocytes % (A) 46 %; MCHC 31.6 g/dL (31.0-37.0); MCV 88.5 fL (80.0-100.0); Mean Platelet Volume 8.4; Monocytes # (A) 0.2 k/uL (0-1.0); Monocytes % (A) 4 %; Neutrophils # (A) 1.9 k/uL (1.3-7.7); Neutrophils % (A) 41 %; Platelet Count 307 k/uL (150-450); RBC 4.72 m/uL (3.80-5.40); RDW 13.9 % (11.5-15.5); WBC 4.7 k/uL (3.8-10.6)
[2022-01-16 09:53] LABS: ALT 10 U/L (4-34); AST 29 U/L (14-36); African American GFR (CKD) >90 (>60 ml/min/1.73 sqM); Albumin 4.6 g/dL (3.5-5.0); Alkaline Phosphatase 75 U/L (38-126); Amylase 51 U/L (30-110); Anion Gap 9 mmol/L; Blood Urea Nitrogen 9 mg/dL (7-17); Calcium 9.6 mg/dL (8.4-10.2); Carbon Dioxide 27 mmol/L (22-30); Chloride 106 mmol/L (98-107); Glucose 85 mg/dL (74-99); Lipase 44 U/L (23-300); Non-African American GFR(CKD) >90 (>60 ml/min/1.73 sqM); Potassium 4.1 mmol/L (3.5-5.1); Sodium 142 mmol/L (137-145); Total Bilirubin 1.2 mg/dL (0.2-1.3); Total Protein 7.4 g/dL (6.3-8.2)
--- NOTE | 2022-01-16 10:47 | US ---
EXAMINATION TYPE: US gallbladder DATE OF EXAM: 01/16/2022 COMPARISON: Recent ultrasound June 20, 2021 CLINICAL HISTORY: Epigastric and back pain. Epigastric and back pain. Hx appendectomy. TECHNIQUE: Multiple sonographic images of the right upper quadrant are obtained. FINDINGS: EXAM MEASUREMENTS: Liver Length: 11.7 cm Gallbladder Wall: 0.23 cm CBD: 0.56 cm Right Kidney: 11.0 x 5.7 x 4.5 cm RAZOR SHARPENER NOTES: Exam is limited due to overlying bowel gas. Pancreas: Limited visibility of tail. Liver: Appears slightly coarse. Gallbladder: Folds seen. Measures 8.9 cm in length. Limited due to gas. Evidence for sonographic Wynn's sign: Patient had pain throughout the exam. CBD: Portions seen measure upper limits. Right Kidney: Hyperechoic focus seen upper pole: 0.6 x 0.6 x 0.5 cm. Visualized portion of pancreas unremarkable. IVC seen near the hepatic dome. Visualized liver within normal limits. Gallbladder seen without shadowing mobile gallstones. No abnormal wall thickening or a djacent fluid. Right kidney shows no hydronephrosis. Possible nonobstructing 5 mm calculus upper pole level is redemonstrated. IMPRESSION: No shadowing mobile gallstones or ultrasound evidence for acute cholecystitis.
[2022-01-16 11:11] LABS: Appearance,Urine Clear (Clear); Bilirubin,Urine Negative (Negative); Blood,Urine Moderate (Negative); Color,Urine Yellow; Glucose,Urine (UA) Negative (Negative); Ketones,Urine Negative (Negative); Leukocyte Esterase,Urine Large (Negative); Mucus,Urine Moderate /hpf; Nitrite,Urine Negative (Negative); Protein,Urine Trace (Negative); RBC,Urine 20 /hpf (0-5); Squamous Epithelial Cell,Urine 1 /hpf (0-4); Urobilinogen,Urine <2.0 mg/dL (<2.0); WBC,Urine 13 /hpf (0-5)
--- NOTE | 2022-01-16 11:21 | CT ---
EXAMINATION TYPE: CT abdomen pelvis wo con DATE OF EXAM: 01/16/2022 COMPARISON: 12/16/2020 HISTORY: Epigastric pain, bloating, history of breast CA CT DLP: 592.5 mGycm Automated exposure control for dose reduction was used. TECHNIQUE: Helical acquisition of images was performed from the lung bases through the pelvis. FINDINGS: LUNG BASES: Pleural based thickening with tiny areas of calcification. LIVER/GB: No significant abnormality is appreciated. PANCREAS: No significant abnormality is seen. SPLEEN: No significant abnormality is seen. ADRENALS: No significant abnormality is seen. KIDNEYS: 3 mm mid pole right renal calculus. Adjacent 1 mm calculus. Mild fullness of the right kidne y may be related to dromedary hump but could be correlated with ultrasound confirmation given the kirit dy is noncontrasted limited in assessment for metastases. ADENOPATHY: None visualized. OSSEOUS STRUCTURES: Hypertrophic degenerative changes of the spine. Arthropathy of the hips. BOWEL: Bowel gas pattern nonspecific. There is no diagnostic evidence of obstruction. Previous surge ry suggested in the pelvis. OTHER: Aorta normal caliber. Trace amount of free fluid in the pelvis. Finding nonspecific. Correlate for previous hysterectomy. Soft tissue nodules in the pelvic bases bilaterally along the sidewall is stable from recent PET scan and likely relate to residual ovarian tissue. Correlate with surgical hi story. Small fat-containing periumbilical hernia. Tiny air bubble seen adjacent to the pubic symphysi s was also noted on previous PET scan and may be related to arthropathy of the joint rather than air within the bladder.. IMPRESSION: 1. No definite acute process. Correlate for constipation. 2. Probable dromedary hump involving the right kidney for which further characterization with ultraso und is recommended given the lack of contrast on today's exam. Finding is stable from prior PET scan. 3. Nonobstructing right renal calculus. 4. Small air bubble seen anterior to the bladder adjacent to the pubic symphysis was present on the p rior PET scan and retrospectively also may be present on the CT scan of 2012. May be related to the a rthropathy of the pubic symphysis. No definite free air suspected.
[2022-01-16] MEDS ORDERED: MAG HYDROX/AL HYDROX/SIMETH 30 ML, HYOSCYAMINE ELIXIR 10 ML PO STA ×2 (11:39)
== END 2022-01-16 13:24 | disposition home or self-care (01) ==
LOC: EC 08:50
DX: K59.00 Constipation, unspecified (principal); N39.0 Urinary tract infection, site not specified; K29.70 Gastritis, unspecified, without bleeding; J45.909 Unspecified asthma, uncomplicated; K21.9 Gastro-esophageal reflux disease without esophagitis; Z79.83 Long term (current) use of bisphosphonates; Z91.040 Latex allergy status; Z88.0 Allergy status to penicillin; Z88.2 Allergy status to sulfonamides; Z88.6 Allergy status to analgesic agent; Z88.8 Allergy status to other drugs, medicaments and biological substances
CPT/HCPCS: 99284; 96374; 96375; 96361; 36415; 80053; 82150; 83690; 84484; 85025; 81001; 87086; 76705; 74176; J2405; J1885

== ENCOUNTER → 2022-01-29 | Outpatient (CLI) | payer OTHER ==
--- NOTE | 2022-01-29 15:17 | NM ---
EXAMINATION TYPE: NM hepatobiliary w EF DATE OF EXAM: 01/29/2022 COMPARISON: CT abdomen and pelvis January 16, 2022 HISTORY: Epigastric pain with diminished appetite and nausea along with bloating. TECHNIQUE: After the intravenous administration of 4.3 mCi Tc 99m Mebrofenin hepatobiliary scintigrap hy is performed. Immediate images post injection. FINDINGS: There is satisfactory initial accumulation of tracer by the liver. The gallbladder is visualized wit hin 30 minutes. The small bowel activity is noted within 60 minutes. At one hour 8 ounces of oral e nsure plus is given to mimic CCK and gallbladder ejection fraction is calculated at 64 %, in the norm al range. Therefore there is no scintigraphic evidence of cystic or common bile duct obstruction to suggest acute cholecystitis or gallbladder dyskinesia. IMPRESSION: Exam is within normal limits.
== END | disposition home or self-care (01) ==
LOC: RADNMMAIN 12:50
PROVIDERS: ATTEND Family Medicine
DX: R10.13 Epigastric pain (principal)
CPT/HCPCS: 78226; A9537

== ENCOUNTER → 2022-03-13 | Outpatient (CLI) | payer OTHER ==
--- NOTE | 2022-03-14 16:12 | US ---
EXAMINATION TYPE: US axilla LT DATE OF EXAM: 03/13/2022 COMPARISON: 11/07/21 CLINICAL HISTORY: C50.411 BREAST CANCER. HX of breast cancer in 2019 No enlarged lymph nodes were visualized on today's exam. IMPRESSION: Limited scanning performed in the left axilla. No abnormalities evident.
== END | disposition home or self-care (01) ==
LOC: RADUSWWP 16:59
PROVIDERS: ATTEND Internal Medicine Hematology & Oncology
DX: C50.411 Malignant neoplasm of upper-outer quadrant of right female breast (principal)

== ENCOUNTER → 2022-05-28 | Outpatient (CLI) | payer OTHER ==
--- NOTE | 2022-05-28 13:08 | CT ---
EXAMINATION TYPE: CT chest wo con CT DLP: 528 mGycm, Automated exposure control for dose reduction was used. DATE OF EXAM: 05/28/2022 12:31 PM COMPARISON: 02/07/2013 CT. CLINICAL INDICATION:Female, 57 years old with history of R07.9 chest pain Z85.3 hx breast cancer, [facility] TECHNIQUE: Multiple axial images were obtained through the chest. Sagittal and coronal reformats were created for review. Contrast used:none Oral contrast used: none. FINDINGS: LUNGS/ PLEURA: No focal consolidation, pneumothorax or pleural effusion. AIRWAY: Patent and unremarkable. HEART: Size within normal limits. MEDIASTINUM: No gross evidence of adenopathy. VASCULATURE: No aortic aneurysm. MUSCULOSKELETAL: No acute osseous abnormalities SOFT TISSUES/LYMPH NODES: The breasts appear surgically absent. LOWER NECK: No significant findings. UPPER ABDOMEN: Nonobstructing right renal calculus measuring up to 4 mm. IMPRESSION: 1. No acute process to explain patient's pain. 2. No evidence for lymphadenopathy
== END | disposition home or self-care (01) ==
LOC: RADCTMAIN 11:47
PROVIDERS: ATTEND Family Medicine
DX: R07.9 Chest pain, unspecified (principal); Z85.3 Personal history of malignant neoplasm of breast
CPT/HCPCS: 71250

== ENCOUNTER → 2022-06-19 | Outpatient (CLI) | payer OTHER ==
--- NOTE | 2022-06-22 11:55 | PE ---
EXAMINATION TYPE: PET CT fusion skull to thigh DATE OF EXAM: 06/19/2022 CLINICAL INDICATION:Female, 57 years old with history of C50.411 Breast CA; TECHNIQUE: Following the intravenous administration of 13.3 mCi of F-18 FDG, whole body images are performed from the skull base to the midthigh. Images are reviewed on the computer in the coronal, a xial, and sagittal planes. Reconstructed rotating images are created on independent workstation and reviewed on the computer. A non-contrast CT is performed in conjunction with the PET scan. Glucose level 85 mg/dL COMPARISON: CT chest 05/28/2022, abdomen and pelvis 01/16/2022, PET/CT 12/06/2020, ultrasound 01/23/2021. FINDINGS: Mediastinal SUV mean is 1.8. Hepatic parenchyma SUV mean is 2.7. SKULL BASE AND NECK: * No suspicious radiotracer activity. * Left posterior inferior thyroid gland FDG activity max SUV 5.1, previously 4.9. CHEST, MEDIASTINUM, AND HILAR REGION: No suspicious radiotracer activity. ABDOMEN AND PELVIS: No suspicious radiotracer activity. OSSEOUS STRUCTURES: No suspicious radiotracer activity. Mild FDG activity at the right first rib and sternum max SUV 3.4. OTHER CT: Mild emphysema changes. There is trace right pleural effusion. Fat-containing umbilical her robert. Few scattered clonic diverticula. IMPRESSION: 1. No suspicious radiotracer activity. 2. Mild active inflammation with degeneration changes of the right first rib near the sternum. 3. Left posterior inferior thyroid gland mild FDG activity as seen on prior PET scan.
== END | disposition home or self-care (01) ==
LOC: RADPETMAIN 13:17
PROVIDERS: ATTEND Internal Medicine Hematology & Oncology
DX: C50.411 Malignant neoplasm of upper-outer quadrant of right female breast (principal); R93.7 Abnormal findings on diagnostic imaging of other parts of musculoskeletal system; Z85.3 Personal history of malignant neoplasm of breast
CPT/HCPCS: 78815; A9552

== ENCOUNTER 2022-08-21 12:22 | Inpatient (IN) | payer OTHER ==
[2022-08-21 13:06] LABS: Basophils % (A) 0 %; Eosinophils # (A) 0.1 k/uL (0-0.7); Eosinophils % (A) 2 %; HCT 39.4 % (34.0-46.0); HGB 13.1 gm/dL (11.4-16.0); Lymphocytes # (A) 2.2 k/uL (1.0-4.8); Lymphocytes % (A) 34 %; MCH 28.4 pg (25.0-35.0); MCHC 33.2 g/dL (31.0-37.0); MCV 85.5 fL (80.0-100.0); Mean Platelet Volume 8.4; Monocytes # (A) 0.2 k/uL (0-1.0); Monocytes % (A) 4 %; Neutrophils # (A) 3.7 k/uL (1.3-7.7); Neutrophils % (A) 57 %; Platelet Count 341 k/uL (150-450); RBC 4.61 m/uL (3.80-5.40); RDW 13.7 % (11.5-15.5); WBC 6.4 k/uL (3.8-10.6)
--- NOTE | 2022-08-21 13:13 | XR ---
EXAMINATION TYPE: XR chest 2V DATE OF EXAM: 08/21/2022 1:06 PM COMPARISON: PET/CT 06/19/2022, CTA chest 05/28/2022 TECHNIQUE: XR chest 2V Frontal and lateral views of the chest. CLINICAL INDICATION:Female, 57 years old with history of difficulty breathing; FINDINGS: Lungs/Pleura: Moderate sized right pleural effusion with adjacent airspace opacities. No pneumothorax . The left lung is clear. Pulmonary vascularity: Unremarkable. Heart/mediastinum: Cardiomediastinal silhouette is unremarkable. Musculoskeletal: No acute osseous pathology. IMPRESSION: Moderate-sized right pleural effusion with adjacent airspace opacities which may represent atelectasi s versus infiltrate.
[2022-08-21 13:24] LABS: ALT 20 U/L (4-34); AST 30 U/L (14-36); African American GFR (CKD) >90 (>60 ml/min/1.73 sqM); Albumin 4.2 g/dL (3.5-5.0); Alkaline Phosphatase 108 U/L (38-126); Anion Gap 8 mmol/L; Blood Urea Nitrogen 9 mg/dL (7-17); Calcium 9.4 mg/dL (8.4-10.2); Carbon Dioxide 28 mmol/L (22-30); Chloride 104 mmol/L (98-107); Glucose 77 mg/dL (74-99); Non-African American GFR(CKD) >90 (>60 ml/min/1.73 sqM); Potassium 4.4 mmol/L (3.5-5.1); Sodium 140 mmol/L (137-145); Total Bilirubin 1.1 mg/dL (0.2-1.3); Total Protein 7.5 g/dL (6.3-8.2)
[2022-08-21 13:45] LABS: Partial Thromboplastin Time 23.1 sec (22.0-30.0); Prothrombin Time 10.2 sec (9.0-12.0)
--- NOTE | 2022-08-21 14:20 | ED ---
SOB HPI - General Chief Complaint: Shortness of Breath Stated Complaint: Irregular labs-sent by PCP Time Seen by Provider: 08/21/22 12:30 Source: patient Mode of arrival: ambulatory Limitations: no limitations - History of Present Illness Initial Comments: 57-year-old female with past history of breast cancer presents emergency room for any shortness of breath. She was seen and Dr. Lugo's office on Wednesday for cough and chest congestion. He placed her on clindamycin. She had a follow-up appointment today and states that she was not feeling any better. She has significant fatigue. He completed a chest x-ray which showed a pleural effusion. Patient has no history of congestive heart failure. No history of metastatic cancer. She has been in remission for a year. She denies any chest pain. No other alleviating, precipitating or modifying factors - Related Data Home Medications Medication Instructions Recorded Confirmed valACYclovir HCL [Valtrex] 500 mg PO DAILY 12/30/19 08/21/22 Zolpidem [Ambien] 5 - 10 mg PO HS PRN 04/18/20 08/21/22 Albuterol Sulfate [Albuterol 2 puff PO RT-QID PRN 08/21/22 08/21/22 Sulfate Hfa] Clindamycin [Cleocin] 150 mg PO TID 08/21/22 08/21/22 Fluticasone Nasal [place] [Flonase 1 spray EA NOSTRIL DAILY 08/21/22 08/21/22 Nasal Ardara] Lidocaine-Prilocaine Cream [Emla 1 applic TOPICAL QID 08/21/22 08/21/22 Cream 2.5%/2.5%] Pantoprazole Sodium [Protonix] 40 mg PO DAILY 08/21/22 08/21/22 Previous Rx's Medication Instructions Recorded Benzonatate [Tessalon Perles] 200 mg PO TID PRN #15 cap 08/26/22 Levofloxacin [Levaquin] 500 mg PO Q24H #7 tab 08/26/22 Loratadine [Claritin] 5 mg PO DAILY tab 08/26/22 predniSONE 0 mg PO DIRECTED 14 Days #40 tab 08/26/22 Allergies Allergy/AdvReac Type Severity Reaction Status Date / Time adhesive Allergy Rash/Hives Verified 08/21/22 13:46 amoxicillin Allergy Rash/Hives Verified 08/21/22 13:46 duloxetine [From Cymbalta] Allergy Hallucinati Verified 08/21/22 13:46 ons egg Allergy see comment Verified 08/21/22 13:46 erythromycin base Allergy Rash/Hives Verified 08/21/22 13:46 gluten Allergy Unknown Verified 08/21/22 13:46 Iodinated Contrast Media Allergy Rash/Hives Verified 08/21/22 13:46 latex Allergy Rash/Hives Verified 08/21/22 13:46 Penicillins Allergy Unknown Verified 08/21/22 13:47 shellfish derived [Shellfish] Allergy Unknown Verified 08/21/22 13:46 soy Allergy Unknown Verified 08/21/22 13:46 Sulfa (Sulfonamide Allergy Rash/Hives Verified 08/21/22 13:46 Antibiotics) sulfamethoxazole Allergy Rash/Hives Verified 08/21/22 13:46 [From Bactrim] trimethoprim [From Bactrim] Allergy Rash/Hives Verified 08/21/22 13:46 codeine AdvReac Vomiting Verified 08/21/22 13:46 morphine AdvReac Hallucinati Verified 08/21/22 13:46 ons Review of Systems ROS Statement: Those systems with pertinent positive or pertinent negative responses have been documented in the HPI. ROS Other: All systems not noted in ROS Statement are negative. Past Medical History Past Medical History: Asthma, Cancer, Chest Pain / Angina, GERD/Reflux, Hyperlipidemia, Osteoarthritis (OA), Pneumonia, Thyroid Disorder Additional Past Medical History / Comment(s): Arnold Chiari Malformation; HSV type 2; right breast cancer , occ migraines, hx seizures around 1999 after brain surgery, constipation, hx anemia, thryoid nodules History of Any Multi-Drug Resistant Organisms: None Reported Past Surgical History: Appendectomy, Breast Surgery, Hysterectomy Additional Past Surgical History / Comment(s): brain surgery 2006, hx. benign right breast needle biopsy. andrea masectomy 2019, left axilla lymph enlarged, chest mass EXCISION, COLONOSCOPY, EGD Past Anesthesia/Blood Transfusion Reactions: Motion Sickness, Postoperative Nausea & Vomiting (PONV) Past Psychological History: Anxiety Smoking Status: Never smoker Past Alcohol Use History: Rare Past Drug Use History: Marijuana - Past Family History Mother Additional Family Medical History / Comment(s): Cervical, Uterine & Colon Cancer. General Exam Limitations: no limitations General appearance: alert, in no apparent distress Head exam: Present: atraumatic, normocephalic, normal inspection Eye exam: Present: normal appearance, PERRL, EOMI. Absent: scleral icterus, conjunctival injection, periorbital swelling ENT exam: Present: normal exam, mucous membranes moist Neck exam: Present: normal inspection. Absent: tenderness, meningismus, lymphadenopathy Respiratory exam: Present: decreased breath sounds (at the right base). Absent: respiratory distress, wheezes, rales, rhonchi, stridor Cardiovascular Exam: Present: regular rate, normal rhythm, normal heart sounds. Absent: systolic murmur, diastolic murmur, rubs, gallop, clicks GI/Abdominal exam: Present: soft, normal bowel sounds. Absent: distended, tenderness, guarding, rebound, rigid Extremities exam: Present: normal inspection, full ROM, normal capillary refill. Absent: tenderness, pedal edema, joint swelling, calf tenderness Back exam: Present: normal inspection Neurological exam: Present: alert, oriented X3, CN II-XII intact Psychiatric exam: Present: normal affect, normal mood Skin exam: Present: warm, dry, intact, normal color. Absent: rash Course Vital Signs 08/21/22 08/21/22 08/21/22 12:24 13:00 13:28 Temperature 97.9 F Pulse Rate 82 71 Respiratory 20 20 18 Rate Blood Pressure 134/59 123/72 O2 Sat by Pulse 96 100 Oximetry 08/21/22 08/21/22 14:35 17:18 Temperature Pulse Rate 76 72 Respiratory 18 18 Rate Blood Pressure 129/72 125/81 O2 Sat by Pulse 99 99 Oximetry Medical Decision Making - Medical Decision Making Was pt. sent in by a medical professional or institution (, PA, CARTOGRAPHY TECHNICIAN, urgent care, hospital, or detention...) When possible be specific @ -Dr. Lugo Did you speak to anyone other than the patient for history (EMS, parent, family, police, friend...)? What history was obtained from this source @ -No Did you review nursing and triage notes (agree or disagree)? Why? @ -I reviewed and agree with nursing and triage notes Were old charts reviewed (outside hosp., previous admission, EMS record, old EKG, old radiological studies, urgent care reports/EKG's, detention records)? Report findings @ -No Differential Diagnosis (chest pain, altered mental status, abdominal pain women, abdominal pain men, vaginal bleeding, weakness, fever, dyspnea, syncope, headache, dizziness, GI bleed, back pain, seizure, CVA, palpatations, mental health, musculoskeletal)? @ -metastatic cancer, pleural effusion, PE, URI, CHF EKG interpreted by me (3pts min.). @ -Yes X-rays interpreted by me (1pt min.). @ -Yes CT interpreted by me (1pt min.). @ -Not done U/S interpreted by me (1pt. min.). @ -Not done What testing was considered but not performed or refused? (CT, X-rays, U/S, labs)? Why? @ -None What meds were considered but not given or refused? Why? @ -None Did you discuss the management of the patient with other professionals (professionals i.e. , PA, CARTOGRAPHY TECHNICIAN, lab, RT, psych nurse, social media marketer, litigation examiner, teacher, fire control officer, protective services case worker)? Give summary @ -Dr. Lugo Was smoking cessation discussed for >3mins.? @ -No Was critical care preformed (if so, how long)? @ -No Were there social determinants of health that impacted care today? How? (Homelessness, low income, unemployed, alcoholism, drug addiction, transportation, low edu. Level, literacy, decrease access to med. care, long-term, rehab)? @ -No Was there de-escalation of care discussed even if they declined (Discuss DNR or withdrawal of care, Hospice)? DNR status @ -No What co-morbidities impacted this encounter? (DM, HTN, Smoking, COPD, CAD, Cancer, CVA, ARF, Chemo, Hep., AIDS, mental health diagnosis, sleep apnea, morb id obesity)? @ -breast cancer Was patient admitted / discharged? Hospital course, mention meds given and route, prescriptions, significant lab abnormalities, going to OR and other pertinent info. @ -Upon arrival patient was placed in room 16. History and physical exam was performed. Repeat laboratory studies are conducted. Viral swab shows the patient is positive for Covid. Chest x-ray demonstrates a right pleural effusion. Discussed results with Dr. Lugo. Would like the patient admitted for pulmonology consultation. She was agreeable to this. Currently pending a bed on the floor Undiagnosed new problem with uncertain prognosis? @ -yes Drug Therapy requiring intensive monitoring for toxicity (Heparin, Nitro, Insulin, Cardizem)? @ -No Were any procedures done? @ -No Diagnosis/symptom? @ -acute cough, right sided pleural effusion, covid infection Acute, or Chronic, or Acute on Chronic? @ -acute Uncomplicated (without systemic symptoms) or Complicated (systemic symptoms)? @ -complicated Side effects of treatment? @ -No Exacerbation, Progression, or Severe Exacerbation? @ -No Poses a threat to life or bodily function? How? (Chest pain, [place], [place], pneumonia, PE, COPD, DKA, ARF, appy, cholecystitis, CVA, Diverticulitis, Homicidal, Suicidal, threat to staff... and all critical care pts) @ -no - Lab Data Result diagrams: 08/26/22 05:33 08/26/22 05:33 Lab Results 08/21/22 08/21/22 08/21/22 Range/Units 12:51 12:51 12:51 WBC 6.4 (3.8-10.6) k/uL RBC 4.61 (3.80-5.40) m/uL Hgb 13.1 (11.4-16.0) gm/dL Hct 39.4 (34.0-46.0) % MCV 85.5 (80.0-100.0) fL MCH 28.4 (25.0-35.0) pg MCHC 33.2 (31.0-37.0) g/dL RDW 13.7 (11.5-15.5) % Plt Count 341 (150-450) k/uL MPV 8.4 Neutrophils % 57 % Lymphocytes % 34 % Monocytes % 4 % Eosinophils % 2 % Basophils % 0 % Neutrophils # 3.7 (1.3-7.7) k/uL Lymphocytes # 2.2 (1.0-4.8) k/uL Monocytes # 0.2 (0-1.0) k/uL Eosinophils # 0.1 (0-0.7) k/uL Basophils # 0.0 (0-0.2) k/uL PT 10.2 (9.0-12.0) sec INR 1.0 (<1.2) APTT 23.1 (22.0-30.0) sec Sodium 140 (137-145) mmol/L Potassium 4.4 (3.5-5.1) mmol/L Chloride 104 (98-107) mmol/L Carbon Dioxide 28 (22-30) mmol/L Anion Gap 8 mmol/L BUN 9 (7-17) mg/dL Creatinine 0.65 (0.52-1.04) mg/dL Est GFR (CKD-EPI)AfAm >90 (>60 ml/min/1.73 sqM) Est GFR (CKD-EPI)NonAf >90 (>60 ml/min/1.73 sqM) Glucose 77 (74-99) mg/dL Plasma Lactic Acid Jessee (0.7-2.0) mmol/L Calcium 9.4 (8.4-10.2) mg/dL Magnesium 2.0 (1.6-2.3) mg/dL Total Bilirubin 1.1 (0.2-1.3) mg/dL AST 30 (14-36) U/L ALT 20 (4-34) U/L Alkaline Phosphatase 108 (38-126) U/L Troponin I (0.000-0.034) ng/mL NT-Pro-B Natriuret Pep pg/mL Total Protein 7.5 (6.3-8.2) g/dL Albumin 4.2 (3.5-5.0) g/dL Influenza Type A (PCR) (Not Detectd) Influenza Type B (PCR) (Not Detectd) RSV (PCR) (Not Detectd) SARS-CoV-2 (PCR) (Not Detectd) 08/21/22 08/21/22 08/21/22 Range/Units 12:51 12:51 12:51 WBC (3.8-10.6) k/uL RBC (3.80-5.40) m/uL Hgb (11.4-16.0) gm/dL Hct (34.0-46.0) % MCV (80.0-100.0) fL MCH (25.0-35.0) pg MCHC (31.0-37.0) g/dL RDW (11.5-15.5) % Plt Count (150-450) k/uL MPV Neutrophils % % Lymphocytes % % Monocytes % % Eosinophils % % Basophils % % Neutrophils # (1.3-7.7) k/uL Lymphocytes # (1.0-4.8) k/uL Monocytes # (0-1.0) k/uL Eosinophils # (0-0.7) k/uL Basophils # (0-0.2) k/uL PT (9.0-12.0) sec INR (<1.2) APTT (22.0-30.0) sec Sodium (137-145) mmol/L Potassium (3.5-5.1) mmol/L Chloride (98-107) mmol/L Carbon Dioxide (22-30) mmol/L Anion Gap mmol/L BUN (7-17) mg/dL Creatinine (0.52-1.04) mg/dL Est GFR (CKD-EPI)AfAm (>60 ml/min/1.73 sqM) Est GFR (CKD-EPI)NonAf (>60 ml/min/1.73 sqM) Glucose (74-99) mg/dL Plasma Lactic Acid Jessee 0.9 (0.7-2.0) mmol/L Calcium (8.4-10.2) mg/dL Magnesium (1.6-2.3) mg/dL Total Bilirubin (0.2-1.3) mg/dL AST (14-36) U/L ALT (4-34) U/L Alkaline Phosphatase (38-126) U/L Troponin I <0.012 (0.000-0.034) ng/mL NT-Pro-B Natriuret Pep 37 pg/mL Total Protein (6.3-8.2) g/dL Albumin (3.5-5.0) g/dL Influenza Type A (PCR) (Not Detectd) Influenza Type B (PCR) (Not Detectd) RSV (PCR) (Not Detectd) SARS-CoV-2 (PCR) (Not Detectd) 08/21/22 Range/Units 12:51 WBC (3.8-10.6) k/uL RBC (3.80-5.40) m/uL Hgb (11.4-16.0) gm/dL Hct (34.0-46.0) % MCV (80.0-100.0) fL MCH (25.0-35.0) pg MCHC (31.0-37.0) g/dL RDW (11.5-15.5) % Plt Count (150-450) k/uL MPV Neutrophils % % Lymphocytes % % Monocytes % % Eosinophils % % Basophils % % Neutrophils # (1.3-7.7) k/uL Lymphocytes # (1.0-4.8) k/uL Monocytes # (0-1.0) k/uL Eosinophils # (0-0.7) k/uL Basophils # (0-0.2) k/uL PT (9.0-12.0) sec INR (<1.2) APTT (22.0-30.0) sec Sodium (137-145) mmol/L Potassium (3.5-5.1) mmol/L Chloride (98-107) mmol/L Carbon Dioxide (22-30) mmol/L Anion Gap mmol/L BUN (7-17) mg/dL Creatinine (0.52-1.04) mg/dL Est GFR (CKD-EPI)AfAm (>60 ml/min/1.73 sqM) Est GFR (CKD-EPI)NonAf (>60 ml/min/1.73 sqM) Glucose (74-99) mg/dL Plasma Lactic Acid Jessee (0.7-2.0) mmol/L Calcium (8.4-10.2) mg/dL Magnesium (1.6-2.3) mg/dL Total Bilirubin (0.2-1.3) mg/dL AST (14-36) U/L ALT (4-34) U/L Alkaline Phosphatase (38-126) U/L Troponin I (0.000-0.034) ng/mL NT-Pro-B Natriuret Pep pg/mL Total Protein (6.3-8.2) g/dL Albumin (3.5-5.0) g/dL Influenza Type A (PCR) Not Detected (Not Detectd) Influenza Type B (PCR) Not Detected (Not Detectd) RSV (PCR) Not Detected (Not Detectd) SARS-CoV-2 (PCR) Detected A (Not Detectd) - EKG Data EKG Comments: EKG demonstrates sinus rhythm with a rate of 71. VA 144. QRS 129. QTC 417. No acute ST segment elevations or depressions. Right undle-branch. Disposition Clinical Impression: COVID, Pleural effusion on right Disposition: ADMITTED IP TO THIS HOSP Condition: Stable Is patient prescribed a controlled substance at d/c from ED?: No Time of Disposition: 14:50 Decision to Admit Reason: Admit from EC Decision Date: 08/21/22 Decision Time: 14:50
[2022-08-21] MEDS ORDERED: NALOXONE 0.4 MG/ML 1 ML VIAL IV PRN (14:50)
[2022-08-21] MEDS: ACETAMINOPHEN TAB 325 MG TAB PO PRN (17:12)
[2022-08-21] MEDS: valACYclovir HCL 500 MG TAB PO SCH (17:12)
[2022-08-21] MEDS: ALBUTEROL HFA INHALER INHALATION PRN (20:40)
[2022-08-21] MEDS: ZOLPIDEM 5 MG TAB PO PRN (22:58)
[2022-08-21] MEDS: BENZONATATE 100 MG CAP PO PRN (22:58)
[2022-08-22] MEDS: PANTOPRAZOLE 40 MG TABLET PO SCH (05:48)
[2022-08-22] MEDS: guaiFENesin SYRUP 100MG/5ML 200 MG/10 ML CUP PO PRN (05:48)
[2022-08-22] MEDS: ALBUTEROL HFA INHALER INHALATION PRN ×2 (07:45→11:39)
[2022-08-22] MEDS: valACYclovir HCL 500 MG TAB PO SCH (08:59)
[2022-08-22] MEDS: BENZONATATE 100 MG CAP PO PRN ×2 (09:00→20:15)
[2022-08-22 09:25] LABS: Basophils # (A) 0.02 X 10*3/uL (0.00-0.10); Basophils % (A) 0.4 %; Eosinophils % (A) 2.2 %; HCT 38.4 % (37.2-46.3); HGB 12.3 g/dL (12.0-15.0); Immature Grans, Automated 0.2 %; Lymphocytes # (A) 2.23 X 10*3/uL (0.90-5.00); MCH 27.5 pg (27.0-32.0); MCV 85.9 fL (80.0-97.0); Mean Platelet Volume 10.2 fL (9.5-12.2); Monocytes # (A) 0.28 X 10*3/uL (0.20-1.00); Monocytes % (A) 6.2 %; NRBC Per 100 WBC 0 /100 WBCS (0.0-0.0); Neutrophils # (A) 1.91 X 10*3/uL (1.80-7.70); Platelet Count 340 X 10*3/uL (140-440); RBC 4.47 X 10*6/uL (4.10-5.20); RDW 13.6 % (11.5-14.5); WBC 4.55 X 10*3/uL (4.50-10.00)
[2022-08-22 09:50] LABS: African American GFR (CKD) 112.3 (60.0-200.0); Anion Gap 11.5 mmol/L (10.00-18.00); BUN/Creat Ratio 14.71 Ratio (12.00-20.00); Blood Urea Nitrogen 10.3 mg/dL (9.0-27.0); Calcium 10.1 mg/dL (8.7-10.3); Carbon Dioxide 24.5 mmol/L (20.0-27.5); Non-African American GFR(CKD) 96.9 (60.0-200.0); Potassium 4.1 mmol/L (3.5-5.5)
--- NOTE | 2022-08-22 11:24 | US ---
EXAMINATION TYPE: US venous doppler duplex LE RT DATE OF EXAM: 08/22/2022 10:16 AM COMPARISON: US 2012 CLINICAL HISTORY: pain. Pain in right leg. No hx of DVT. Patient does not take blood thinners. SIDE PERFORMED: Right TECHNIQUE: The lower extremity deep venous system is examined utilizing real time linear array sonog kerline with graded compression, doppler sonography and color-flow sonography. VESSELS IMAGED: Common Femoral Vein Deep Femoral Vein Greater Saphenous Vein * Femoral Vein Popliteal Vein Small Saphenous Vein * Proximal Calf Veins (* superficial vessels) Right Leg: No evidence of DVT. Scanned pt's area of concern at the upper lateral right calf, no abnormalities seen by ultrasound. IMPRESSION: 1 right lower extremity ultrasound negative for deep venous thrombosis.
--- NOTE | 2022-08-22 12:40 | US ---
EXAMINATION TYPE: US chest DATE OF EXAM: 08/22/2022 COMPARISON: XR 2022 CLINICAL HISTORY: Right pleural effusion. Right pleural effusion. TECHNIQUE: Targeted ultrasound of the posterior lower bilateral hemithoraces EXAM MEASUREMENTS: Right Pleural Effusion pocket size: 9.1 cm Right skin surface to fluid distance: 4.8 cm Not marked due to lung tissue seen anteriorly within the fluid pocket at 4.9 cm from skin surface . From start of pocket to lung tissue measures 1.3 cm. Left Pleural Effusion pocket size: 0 cm. No fluid seen. Right side NOT marked. Left side NOT marked. Pulmonologists are able to review the images in the patient?s EMR. IMPRESSIONS: Small bilateral pleural effusions. Skin was not marked.
[2022-08-22] MEDS ORDERED: IPRATROPIUM-ALBUTEROL 3 ML NEB INHALATION PRN (12:52)
--- NOTE | 2022-08-22 12:52 | P.CNPUL ---
History of Present Illness Consult date: 08/22/22 Requesting physician: Kenneth Lugo Reason for consult: dyspnea, cough, pneumonia, pleural effusion, abnormal CXR/CT Chief complaint: Shortness of breath, cough, chest congestion. History of present illness: Pulmonary consult dated the 2022. 57-year-old black female with history of breast cancer, presents to the emergency department on August 21, complaining of shortness of breath, chest congestion, and cough. The patient hasn't been feeling well for a few days, and recently saw her primary care physician who provided her with an antibiotic in the form of clindamycin. She was not improving, and decided to come to the emergency room to be evaluated. In addition to shortness of breath, cough, and chest congestion, she has significant fatigue. The patient was seen in the e mergency department, and admitted. We saw her today in room 475. She was on room air. She was not receiving any IV fluids. She did not appear to be any distress whatsoever. She did test positive for coronavirus. Chest x-ray showed what appeared to be either infiltrate or atelectasis at the right lung base, with a right-sided pleural effusion. Ultrasound of the chest, revealed no free flowing fluid, and there was lung tissue within the fluid pocket. Hence, she is not a candidate for a thoracentesis at this time. She does have a history of breast cancer, asthma, GERD, angina, hyperlipidemia, osteoarthritis, multiple ALLERGIES, migraines, seizures, and Arnold-Chiari malformation. White count is 4.55, with a normal hemoglobin, hematocrit, and platelet count. Coagulation studies are normal. Electrolytes, including kidney function are completely normal. Also, liver function testing was normal. She did test positive for coronavirus. There is no evidence of DVT in the right lower extremity. Chest x-ray suggested a moderate right-sided pleural effusion. There also may be some infiltrate or atelectasis at the right lung base. Review of Systems REVIEW OF SYSTEMS: CONSTITUTIONAL: Fatigue. NEUROLOGIC: [ Negative.] HEENT: [ Negative.] CARDIAC: [Negative.] PULMONARY: Shortness of breath, cough, chest congestion. GI: [Negative.] : [Negative.] RHEUMATOLOGIC: [ Negative.] IMMUNOLOGIC: [ Negative.] ENDOCRINE: [Negative. ] DERMATOLOGIC: [Negative.] Past Medical History Past Medical History: Asthma, Cancer, Chest Pain / Angina, GERD/Reflux, Hyperlipidemia, Osteoarthritis (OA), Pneumonia, Thyroid Disorder Additional Past Medical History / Comment(s): Arnold Chiari Malformation; HSV type 2; right breast cancer , occ migraines, hx seizures around 1999 after brain surgery, constipation, hx anemia, thryoid nodules History of Any Multi-Drug Resistant Organisms: None Reported Past Surgical History: Appendectomy, Breast Surgery, Hysterectomy Additional Past Surgical History / Comment(s): brain surgery 2006, hx. benign right breast needle biopsy. andrea masectomy 2019, left axilla lymph enlarged, chest mass EXCISION, COLONOSCOPY, EGD Past Anesthesia/Blood Transfusion Reactions: Motion Sickness, Postoperative Nausea & Vomiting (PONV) Past Psychological History: Anxiety Additional Psychological History / Comment(s): Situational anxiety. Smoking Status: Never smoker Past Alcohol Use History: Rare Past Drug Use History: Marijuana Additional Drug Use History / Comment(s): CBD/THC EDIBLES FOR PAIN NEEDED- INSTRUCTED TO REFRAIN FROM USE FOR AT LEAST 24 HOURS PRIOR TO PROCEDURE - Past Family History Mother Additional Family Medical History / Comment(s): Cervical, Uterine & Colon Cancer. Medications and Allergies Home Medications Medication Instructions Recorded Confirmed Type valACYclovir HCL [Valtrex] 500 mg PO DAILY 12/30/19 08/21/22 History Zolpidem [Ambien] 5 - 10 mg PO HS PRN 04/18/20 08/21/22 History Albuterol Sulfate [Albuterol 2 puff PO RT-QID PRN 08/21/22 08/21/22 History Sulfate Hfa] Clindamycin [Cleocin] 150 mg PO TID 08/21/22 08/21/22 History Fluticasone Nasal Spangler [Flonase 1 spray EA NOSTRIL DAILY 08/21/22 08/21/22 History Nasal Spangler] Lidocaine-Prilocaine Cream [Emla 1 applic TOPICAL QID 08/21/22 08/21/22 History Cream 2.5%/2.5%] Pantoprazole Sodium [Protonix] 40 mg PO DAILY 08/21/22 08/21/22 History Allergies Allergy/AdvReac Type Severity Reaction Status Date / Time adhesive Allergy Rash/Hives Verified 08/21/22 13:46 amoxicillin Allergy Rash/Hives Verified 08/21/22 13:46 duloxetine [From Cymbalta] Allergy Hallucinati Verified 08/21/22 13:46 ons egg Allergy see comment Verified 08/21/22 13:46 erythromycin base Allergy Rash/Hives Verified 08/21/22 13:46 gluten Allergy Unknown Verified 08/21/22 13:46 Iodinated Contrast Media Allergy Rash/Hives Verified 08/21/22 13:46 latex Allergy Rash/Hives Verified 08/21/22 13:46 Penicillins Allergy Unknown Verified 08/21/22 13:47 shellfish derived [Shellfish] Allergy Unknown Verified 08/21/22 13:46 soy Allergy Unknown Verified 08/21/22 13:46 Sulfa (Sulfonamide Allergy Rash/Hives Verified 08/21/22 13:46 Antibiotics) sulfamethoxazole Allergy Rash/Hives Verified 08/21/22 13:46 [From Bactrim] trimethoprim [From Bactrim] Allergy Rash/Hives Verified 08/21/22 13:46 codeine AdvReac Vomiting Verified 08/21/22 13:46 morphine AdvReac Hallucinati Verified 08/21/22 13:46 ons Physical Exam Osteopathic Statement: *. No significant issues noted on an osteopathic struc tural exam other than those noted in the History and Physical/Consult. Vitals: Vital Signs Temp Pulse Pulse Resp BP BP Pulse Ox 08/22/22 07:47 96 08/22/22 06:52 98.4 F 78 18 101/67 97 08/22/22 02:00 97.9 F 80 17 110/71 99 08/21/22 20:00 99.1 F 75 20 118/72 95 08/21/22 17:18 72 18 125/81 99 08/21/22 14:35 76 18 129/72 99 08/21/22 13:28 71 18 123/72 100 08/21/22 13:00 20 Intake and Output 08/21/22 08/22/22 08/22/22 22:59 06:59 14:59 Output Total 300 Balance -300 Output: Urine 300 Other: # Voids 2 Weight 74.389 kg No acute distress, oriented 3. No respiratory distress, use of accessory mus cles, or audible wheezing. No conversational dyspnea. The patient's on room air. HEENT examination is grossly unremarkable. Neck supple. Full range of motion. No adenopathy thyromegaly or neck vein distention. Cardiovascular examination reveals regular rhythm rate. S1-S2 normal. No S3 or S4. No discernible murmur noted. Heart rate 78 bpm. Lungs reveal diminished breath sounds at the right lung base. No wheezes or crackles. Left lung is clear. Abdomen soft bowel sounds are heard. No masses or tenderness. Extremities are intact. No cyanosis clubbing or edema. Skin is without rash or lesion. Neurologic examination is brief but nonfocal. Results - Laboratory Findings CBC and BMP: 08/22/22 06:21 08/22/22 06:21 PT/INR, D-dimer PT 10.2 sec (9.0-12.0) 08/21/22 12:51 INR 1.0 (<1.2) 08/21/22 12:51 Abnormal lab findings: Abnormal Labs 08/21/22 12:51 SARS-CoV-2 (PCR) Detected A - Diagnostic Findings Chest x-ray: image reviewed U/S of Legs: image reviewed Assessment and Plan Assessment: Shortness of breath, cough, and congestion, likely related to the process at the right lung base, which likely represents infiltrate/atelectasis, and pleural effusion. History of right breast cancer, treated, with subsequent bilateral mastectomy, 2019. History of chronic bronchial asthma. Patient tested positive for coronavirus infection. History of gastroesophageal reflux disease. History of hyperlipidemia. History of pneumonia. History of osteoarthritis. History of irregular migraines. History of seizure disorder. History of Arnold Chiari malformation. Plan: Plan dated 08/22/2022. The fluid accumulation in the right chest, is not amenable to thoracentesis. We'll check a pro-calcitonin level. We'll continue to follow make recommendations along the way. We will add some breathing treatments for the patient. If the pro-calcitonin level is elevated, we will add some antibiotics. Additional recommendations and suggestions are forthcoming. Time with Patient: Greater than 30
[2022-08-22] MEDS ORDERED: IPRATROPIUM-ALBUTEROL 3 ML NEB INHALATION SCH (13:00)
[2022-08-22] MEDS ORDERED: IPRATROPIUM 0.5 MG/2.5 ML NEBU INHALATION PRN (13:15)
[2022-08-22] MEDS ORDERED: ALBUTEROL NEBULIZED 2.5 MG/3 ML INHALATION PRN (13:15)
[2022-08-22] MEDS ORDERED: ALBUTEROL HFA INHALER INHALATION PRN (15:14)
[2022-08-22] MEDS: ACETAMINOPHEN TAB 325 MG TAB PO PRN (17:01)
[2022-08-22] MEDS ORDERED: IPRATROPIUM 0.5 MG/2.5 ML NEBU INHALATION SCH (20:00)
[2022-08-22] MEDS: DOXYCYCLINE 100 MG CAP PO SCH (20:14)
[2022-08-22] MEDS: ZOLPIDEM 5 MG TAB PO PRN (20:15)
[2022-08-22] MEDS: ALBUTEROL HFA INHALER INHALATION SCH (21:01)
--- NOTE | 2022-08-22 22:15 | PN ---
PROGRESS NOTE DATE OF SERVICE: 08/22/2022 CHIEF COMPLAINT: Cough, shortness of breath, congestion, pneumonitis, COVID, and right pleural effusion. HISTORY OF PRESENT ILLNESS: This lady states that she is feeling terrible. She aches all over. She is not particularly short of breath and she is not having any significant chest pain. PHYSICAL EXAMINATION: HEENT: Head, ears, eyes, nose, mouth and throat are normal. CHEST: Clear. There are decreased breath sounds at the right base. CARDIAC: Normal. ABDOMEN: Soft, nontender. IMPRESSION: 1. Bronchopneumonia. 2. Bronchitis. 3. COVID-19. 4. History of negative breast carcinoma. PLAN: 1. Continue with IV fluids and antipyretics. 2. Consult Oncology. 3. Continue to treat for discomfort and monitor her respiratory status. MMODL / IJN: [id number] /
[2022-08-23] MEDS: BENZONATATE 100 MG CAP PO PRN ×2 (05:09→20:21)
[2022-08-23] MEDS: PANTOPRAZOLE 40 MG TABLET PO SCH (05:09)
[2022-08-23] MEDS: DOXYCYCLINE 100 MG CAP PO SCH ×2 (08:35→20:20)
[2022-08-23] MEDS: valACYclovir HCL 500 MG TAB PO SCH (08:35)
[2022-08-23] MEDS: ALBUTEROL HFA INHALER INHALATION SCH ×3 (09:53→20:42)
--- NOTE | 2022-08-23 12:14 | P.PN ---
Subjective Progress Note Date: 08/23/22 57-year-old black female with history of breast cancer, presents to the emergency department on August 21, complaining of shortness of breath, chest congestion, and cough. The patient hasn't been feeling well for a few days, and recently saw her primary care physician who provided her with an antibiotic in the form of clindamycin. She was not improving, and decided to come to the emergency room to be evaluated. In addition to shortness of breath, cough, and chest congestion, she has significant fatigue. The patient was seen in the emergency department, and admitted. We saw her today in room 475. She was on room air. She was not receiving any IV fluids. She did not appear to be any distress whatsoever. She did test positive for coronavirus. Chest x-ray showed what appeared to be either infiltrate or atelectasis at the right lung base, with a right-sided pleural effusion. Ultrasound of the chest, revealed no free flowing fluid, and there was lung tissue within the fluid pocket. Hence, she is not a candidate for a thoracentesis at this time. She does have a history of breast cancer, asthma, GERD, angina, hyperlipidemia, osteoarthritis, multiple ALLERGIES, migraines, seizures, and Arnold-Chiari malformation. White count is 4.55, with a normal hemoglobin, hematocrit, and platelet count. Coagulation studies are normal. Electrolytes, including kidney function are completely n ormal. Also, liver function testing was normal. She did test positive for coronavirus. There is no evidence of DVT in the right lower extremity. Chest x-ray suggested a moderate right-sided pleural effusion. There also may be some infiltrate or atelectasis at the right lung base. The patient is seen today 08/23/2022 in follow-up on the regular medical floor. She is currently sitting up in bed. Awake and alert in no acute distress. Maintaining good O2 saturations in the 90s on room air. She remains afebrile. Hemodynamically stable. Ultrasound of the right chest revealed a 9.1 cm pocket however there was significant lung tissue within the pocket. No plans for thoracentesis. She remains on bronchodilators, empiric antibiotics in the form of doxycycline. Objective - Vital Signs Vital signs: Vital Signs Temp 97.9 F 08/23/22 07:58 Pulse 95 08/23/22 07:58 Resp 16 08/23/22 07:58 BP 104/69 08/23/22 07:58 Pulse Ox 95 08/23/22 09:56 FiO2 Intake & Output 08/22/22 08/23/22 08/23/22 18:59 06:59 18:59 Output Total 300 Balance -300 Output: Urine 300 Other: # Voids 3 2 1 - Exam GENERAL EXAM: Alert, very pleasant 57 year old female, on room air, comfortable in no apparent distress. HEAD: Normocephalic. EYES: Normal reaction of pupils, equal size. NOSE: Clear with pink turbinates. THROAT: No erythema or exudates. NECK: No masses, no JVD. CHEST: No chest wall deformity. LUNGS: Equal air entry with diminished breath sounds in the right base. CVS: S1 and S2 normal with no audible murmur, regular rhythm. ABDOMEN: No hepatosplenomegaly, normal bowel sounds, no guarding or rigidity. SPINE: No scoliosis or deformity SKIN: No rashes CENTRAL NERVOUS SYSTEM: No focal deficits, tone is normal in all 4 extremities. EXTREMITIES: There is no peripheral edema. No clubbing, no cyanosis. Peripheral pulses are intact. - Labs CBC & Chem 7: 08/22/22 06:21 08/22/22 06:21 Assessment and Plan Assessment: Shortness of breath, cough, and congestion, likely related to the process at the right lung base, which likely represents infiltrate/atelectasis, and pleural effusion. Ultrasound of the right chest revealed a 9.1 cm pocket however there is significant lung tissue within the space. No plans for thoracentesis. History of right breast cancer, treated, with subsequent bilateral mastectomy, 2020. History of chronic bronchial asthma. Patient tested positive for coronavirus infection. History of gastroesophageal reflux disease. History of hyperlipidemia. History of pneumonia. History of osteoarthritis. History of irregular migraines. History of seizure disorder. History of Arnold Chiari malformation. Plan: The patient was seen and evaluated Ultrasound, medications and labs reviewed No plans for thoracentesis this admission Stable and on room air Could be discharged to home Educated regarding signs and symptoms of worsening pleural effusion Follow up chest x-rays with her primary care provider I have personally seen and examined the patient, performed the documentation and the assessment and plan as written. Number of minutes spent on the visit: 10.
--- NOTE | 2022-08-23 16:13 | P.CONS ---
History of Present Illness - Reason for Consult Consult date: 08/23/22 History of triple negative breast cancer - Chief Complaint Cough with fatigue - History of Present Illness Ms. Raya is a 57-year-old woman with a past medical history significant for stage IIA triple negative breast cancer status post neoadjuvant chemotherapy from 12/14/2019 through 03/21/2020 followed by bilateral mastectomy on 05/14/2020 and currently on surveillance who was admitted with COVID-19 infection. She notes having gone to [place] over the previous weekend and developed progressive malaise, cough, and postnasal drip. She was seen by her PCP Dr. Lugo ordered a chest x-ray, which noted moderate right pleural effusion along with adjacent airspace opacities. She was then recommended to present to the ED for additional management recommendations. In the ED, she was hemodynamically stable and afebrile. CBC and CMP did not reveal any acute abnormalities. She did test positive for COVID-19. She was admitted for further management recommendations. Since admission, ultrasound of the thoracic cavity revealed small bilateral pleural effusions, which were not amenable to thoracentesis. Right lower extremity duplex was negative for DVT. Pulmonology has been consulted during her admission, did not recommend thoracenteses due to the small amount of pleural fluid and the risk for pneumothorax. Currently, she notes feeling improved since admission. Prior to admission, she had no constitutional symptoms including fevers, chills, night sweats, lymphadenopathy, anorexia, or weight loss. PET/CT on 06/19/2022 revealed no evidence of metastatic disease. It did note degenerative changes around the right first rib near the sternum along with left posterior inferior thyroid FDG uptake, which had been previously visualized. She does note increased soreness and discomfort around the right upper chest, for which she uses topical roll-on menthol cream, which does provide relief. She denies any other focal areas of pain. She is currently breathing comfortably on room air. Review of Systems 14 point review of systems was conducted with pertinent positives and negatives noted per HPI. Past Medical History Past Medical History: Asthma, Cancer, Chest Pain / Angina, GERD/Reflux, Hyperlipidemia, Osteoarthritis (OA), Pneumonia, Thyroid Disorder Additional Past Medical History / Comment(s): Arnold Chiari Malformation; HSV type 2; right breast cancer , occ migraines, hx seizures around 1999 after brain surgery, constipation, hx anemia, thryoid nodules History of Any Multi-Drug Resistant Organisms: None Reported Past Surgical History: Appendectomy, Breast Surgery, Hysterectomy Additional Past Surgical History / Comment(s): brain surgery 2007, hx. benign right breast needle biopsy. andrea masectomy 2019, left axilla lymph enlarged, chest mass EXCISION, COLONOSCOPY, EGD Past Anesthesia/Blood Transfusion Reactions: Motion Sickness, Postoperative Nausea & Vomiting (PONV) Past Psychological History: Anxiety Additional Psychological History / Comment(s): Situational anxiety. Smoking Status: Never smoker Past Alcohol Use History: Rare Past Drug Use History: Marijuana Additional Drug Use History / Comment(s): CBD/THC EDIBLES FOR PAIN NEEDED- INSTRUCTED TO REFRAIN FROM USE FOR AT LEAST 24 HOURS PRIOR TO PROCEDURE - Past Family History Mother Additional Family Medical History / Comment(s): Cervical, Uterine & Colon Cancer. Medications and Allergies Home Medications Medication Instructions Recorded Confirmed Type valACYclovir HCL [Valtrex] 500 mg PO DAILY 12/30/19 08/21/22 History Zolpidem [Ambien] 5 - 10 mg PO HS PRN 04/18/20 08/21/22 History Albuterol Sulfate [Albuterol 2 puff PO RT-QID PRN 08/21/22 08/21/22 History Sulfate Hfa] Clindamycin [Cleocin] 150 mg PO TID 08/21/22 08/21/22 History Fluticasone Nasal Eva [Flonase 1 spray EA NOSTRIL DAILY 08/21/22 08/21/22 History Nasal Eva] Lidocaine-Prilocaine Cream [Emla 1 applic TOPICAL QID 08/21/22 08/21/22 History Cream 2.5%/2.5%] Pantoprazole Sodium [Protonix] 40 mg PO DAILY 08/21/22 08/21/22 History Allergies Allergy/AdvReac Type Severity Reaction Status Date / Time adhesive Allergy Rash/Hives Verified 08/21/22 13:46 amoxicillin Allergy Rash/Hives Verified 08/21/22 13:46 duloxetine [From Cymbalta] Allergy Hallucinati Verified 08/21/22 13:46 ons egg Allergy see comment Verified 08/21/22 13:46 erythromycin base Allergy Rash/Hives Verified 08/21/22 13:46 gluten Allergy Unknown Verified 08/21/22 13:46 Iodinated Contrast Media Allergy Rash/Hives Verified 08/21/22 13:46 latex Allergy Rash/Hives Verified 08/21/22 13:46 Penicillins Allergy Unknown Verified 08/21/22 13:47 shellfish derived [Shellfish] Allergy Unknown Verified 08/21/22 13:46 soy Allergy Unknown Verified 08/21/22 13:46 Sulfa (Sulfonamide Allergy Rash/Hives Verified 08/21/22 13:46 Antibiotics) sulfamethoxazole Allergy Rash/Hives Verified 08/21/22 13:46 [From Bactrim] trimethoprim [From Bactrim] Allergy Rash/Hives Verified 08/21/22 13:46 codeine AdvReac Vomiting Verified 08/21/22 13:46 morphine AdvReac Hallucinati Verified 08/21/22 13:46 ons Physical Exam Vitals: Vital Signs Temp Pulse Resp BP Pulse Ox 08/23/22 14:00 99.1 F 78 18 117/67 99 08/23/22 09:56 95 08/23/22 07:58 97.9 F 95 16 104/69 95 08/23/22 02:00 98.4 F 78 18 118/68 98 08/22/22 20:00 98.3 F 71 18 100/64 99 Intake and Output 08/23/22 08/23/22 08/23/22 06:59 14:59 22:59 Other: # Voids 2 1 - Constitutional Seated in bed General appearance: cooperative, no acute distress - EENT Eyes: EOMI - Neck Neck: no lymphadenopathy - Respiratory Respiratory: bilateral: CTA - Cardiovascular Rhythm: regular - Gastrointestinal General gastrointestinal: no distended, normal bowel sounds, soft - Integumentary Integumentary: no rash - Neurologic Neurologic: CNII-XII intact - Musculoskeletal Mild right chest wall soreness to palpation with no palpable mass. Well-healed right mastectomy scar Results CBC & Chem 7: 08/22/22 06:21 08/22/22 06:21 CT scan - abdomen: image reviewed Assessment and Plan (1) COVID Current Visit: Yes Status: Acute Code(s): U07.1 - COVID-19 SNOMED Code(s): 690479932 (2) Breast cancer Current Visit: No Status: Acute Code(s): C50.919 - MALIGNANT NEOPLASM OF UNSP SITE OF UNSPECIFIED FEMALE BREAST SNOMED Code(s): 301142864 Plan: Stage IIA triple negative breast cancer of the right breast -Neoadjuvant dose dense doxorubicin/cyclophosphamide for 4 cycles followed by 4 cycles of dose dense paclitaxel from 12/14/2019 through 03/21/2020 -Bilateral mastectomy on 05/14/2020 noted 5 mm residual disease with 6 negative lymph nodes in the right axilla -She was offered adjuvant Xeloda given the residual disease, but was noted to have declined treatment -She has since been on surveillance with most recent PET/CT on 06/19/2022 revealing no evidence of recurrent or metastatic disease -Clinically, she does not appear to have evidence of recurrent or evident metastatic disease -Current small pleural effusion is likely reactive secondary to infection from COVID-19 in addition to potentially superimposed bacterial pneumonia and is likely not related to her malignancy -She can have follow-up chest x-ray in 6 weeks from discharge to assess for any increase in size of pleural effusion -Continue regular scheduled follow-up with her primary oncologist Dr. Sterling currently scheduled for 12/21/2022 COVID-19 infection -Tested positive for COVID-19 on 08/21/2022 -She had been noted to be in [place] the weekend prior attending a [employer] show -She notes having full set of vaccination and booster shots for COVID-19 -She currently appears to be hemodynamically stable and afebrile -Defer treatment to the primary medical and pulmonary teams
[2022-08-23] MEDS: ACETAMINOPHEN TAB 325 MG TAB PO PRN (18:09)
[2022-08-23] MEDS: ZOLPIDEM 5 MG TAB PO PRN (20:20)
--- NOTE | 2022-08-24 04:57 | PN ---
PROGRESS NOTE CHIEF COMPLAINT: Pneumonitis with right pleural effusion and COVID. HISTORY OF PRESENT ILLNESS: This lady is feeling a little bit better. She is less achy. She is not short of breath. She has had no fever or chills. PHYSICAL EXAMINATION: CHEST: Breath sounds are diminished at the right base, but otherwise her chest is fairly clear. CARDIAC: Normal. IMPRESSION: 1. Bronchial pneumonia. 2. COVID-19. 3. Right pleural effusion. 4. History of triple negative breast cancer. PLAN: If the effusion begins to recede, she could go home in a day or 2. MMODL / IJN: [id number] /
[2022-08-24] MEDS: PANTOPRAZOLE 40 MG TABLET PO SCH (05:20)
[2022-08-24] MEDS: BENZONATATE 100 MG CAP PO PRN (05:20)
[2022-08-24] MEDS: DOXYCYCLINE 100 MG CAP PO SCH (08:40)
[2022-08-24] MEDS: valACYclovir HCL 500 MG TAB PO SCH (08:40)
[2022-08-24] MEDS: ALBUTEROL HFA INHALER INHALATION SCH ×3 (09:23→20:21)
[2022-08-24] MEDS: ACETAMINOPHEN TAB 325 MG TAB PO PRN (11:10)
[2022-08-24] MEDS ORDERED: AZITHROMYCIN 500 MG TAB PO SCH (11:45)
[2022-08-24] MEDS: methylPREDNISolone SOD SUCCI 125 MG/2 ML VIAL IV SCH ×3 (12:29→23:09)
--- NOTE | 2022-08-24 12:59 | XR ---
EXAMINATION TYPE: XR chest 1V DATE OF EXAM: 08/24/2022 HISTORY: Shortness of breath. COMPARISON: 08/21/2022 TECHNIQUE: Single view of the chest is submitted. FINDINGS: Demonstrated are scattered senescent parenchymal change. Persistent right lower lobe infiltrate with small pleural effusion. The heart is stable. Hilar and mediastinal structures are within normal limits. Degenerative changes are seen of the dorsal spine. IMPRESSION: 1. Persistent right lower lobe infiltrate with small pleural effusion.
[2022-08-24] MEDS ORDERED: diphenhydrAMINE 50 MG CAP PO PRN (13:13)
[2022-08-24] MEDS ORDERED: diphenhydrAMINE 50 MG CAP PO STA (13:13)
--- NOTE | 2022-08-24 14:02 | P.PN ---
Subjective Progress Note Date: 08/24/22 57-year-old black female with history of breast cancer, presents to the emergency department on August 21, complaining of shortness of breath, chest congestion, and cough. The patient hasn't been feeling well for a few days, and recently saw her primary care physician who provided her with an antibiotic in the form of clindamycin. She was not improving, and decided to come to the emergency room to be evaluated. In addition to shortness of breath, cough, and chest congestion, she has significant fatigue. The patient was seen in the emergency department, and admitted. We saw her today in room 475. She was on room air. She was not receiving any IV fluids. She did not appear to be any distress whatsoever. She did test positive for coronavirus. Chest x-ray showed what appeared to be either infiltrate or atelectasis at the right lung base, with a right-sided pleural effusion. Ultrasound of the chest, revealed no free flowing fluid, and there was lung tissue within the fluid pocket. Hence, she is not a candidate for a thoracentesis at this time. She does have a history of breast cancer, asthma, GERD, angina, hyperlipidemia, osteoarthritis, multiple ALLERGIES, migraines, seizures, and Arnold-Chiari malformation. White count is 4.55, with a normal hemoglobin, hematocrit, and platelet count. Coagulation studies are normal. Electrolytes, including kidney function are completely normal. Also, liver function testing was normal. She did test positive for coronavirus. There is no evidence of DVT in the right lower extremity. Chest x-ray suggested a moderate right-sided pleural effusion. There also may be some infiltrate or atelectasis at the right lung base. The patient is seen today 08/23/2022 in follow-up on the regular medical floor. She is currently sitting up in bed. Awake and alert in no acute distress. Maintaining good O2 saturations in the 90s on room air. She remains afebrile. Hemodynamically stable. Ultrasound of the right chest revealed a 9.1 cm pocket however there was significant lung tissue within the pocket. No plans for thoracentesis. She remains on bronchodilators, empiric antibiotics in the form of doxycycline. On today's evaluation of 08/24/2022, the patient is still struggling with her breathing. She has cough and congestion and respiratory difficulties and she is unable to fully expand her lungs. Noted the patient was also checked positive for Covid 19. Chest x-ray showed a right sided pleural effusion on ultrasound the chest showed confirmed the findings, with a 9.1 cm pocket involving the right lung. As such, the presence of a right lower lobe pulmonary infiltrate and a parapneumonic effusion is not consistent with a Covid 19 infection. There may be an underlying bacterial infection also. The pro calcitonin level was checked today and development came back at 0.06. BUN is at panel with a creatinine of 0.7 and a sodium level is at 138. The WBC count is at 4.5 with a hemoglobin of 4.3. Based on those findings, give the patient combination of Rocephin and Zithromax and immediately following that, she developed a rash and itching and she was given Benadryl. She is already on IV Solu-Medrol. I may started on Levaquin probably next 24 hours. Repeat chest x-rays also required for tomorrow. The chest x-ray from today shows a persistent right lower lobe pulmonary infiltrate and a small pleural effusion on the right. Objective - Vital Signs Vital signs: Vital Signs Temp 98.6 F 08/24/22 08:02 Pulse 91 08/24/22 08:02 Resp 18 08/24/22 08:02 BP 107/70 08/24/22 08:02 Pulse Ox 98 08/24/22 08:02 FiO2 Intake & Output 08/23/22 08/24/22 08/24/22 18:59 06:59 18:59 Other: Voiding Method Toilet # Voids 3 3 - Exam GENERAL EXAM: Alert, very pleasant 57 year old female, on room air, comfortable in no apparent distress. The patient is currently on room air with a pulse ox of 98% HEAD: Normocephalic. EYES: Normal reaction of pupils, equal size. NOSE: Clear with pink turbinates. THROAT: No erythema or exudates. NECK: No masses, no JVD. CHEST: No chest wall deformity. LUNGS: Equal air entry with diminished breath sounds in the right base. CVS: S1 and S2 normal with no audible murmur, regular rhythm. ABDOMEN: No hepatosplenomegaly, normal bowel sounds, no guarding or rigidity. SPINE: No scoliosis or deformity SKIN: No rashes CENTRAL NERVOUS SYSTEM: No focal deficits, tone is normal in all 4 extremities. EXTREMITIES: There is no peripheral edema. No clubbing, no cyanosis. Peripheral pulses are intact. - Labs CBC & Chem 7: 08/22/22 06:21 08/22/22 06:21 Assessment and Plan Plan: Right lower lobe consolidation/pneumonia with parapneumonic effusion. Rule out viral versus bacterial. The patient was found to be positive for Covid 19. Nevertheless, this presentation is not typical for her Covid 19 pneumonia and I do suspect a bacterial infection despite the pro calcitonin level being low. The patient was given Rocephin and Zithromax and this was interrupted because of an ALLERGIC reaction. Is on IV Solu-Medrol for now. Shortness of breath, cough, and congestion, likely related to the process at the right lung base, which likely represents infiltrate/atelectasis, and pleural effusion. Ultrasound of the right chest revealed a 9.1 cm pocket however there is significant lung tissue within the space. History of right breast cancer, treated, with subsequent bilateral mastectomy, 2019. History of chronic bronchial asthma. Patient tested positive for coronavirus infection. History of gastroesophageal reflux disease. History of hyperlipidemia. History of pneumonia. History of osteoarthritis. History of irregular migraines. History of seizure disorder. History of Arnold Chiari malformation. Plan: Check [facility] Pro calcitonin level is low Start The patient IV Solu-Medrol Antibiotics will be discontinued as the patient developed ALLERGIC reaction May restart antibiotics over the next 24 hours and the choice will be Levaquin We'll continue to follow make further recommendations based on her progress.
[2022-08-24] MEDS: ZOLPIDEM 5 MG TAB PO PRN (20:18)
[2022-08-24] MEDS: guaiFENesin SYRUP 100MG/5ML 200 MG/10 ML CUP PO PRN (20:20)
[2022-08-25] MEDS: ACETAMINOPHEN TAB 325 MG TAB PO PRN ×3 (04:11→18:29)
[2022-08-25] MEDS: methylPREDNISolone SOD SUCCI 125 MG/2 ML VIAL IV SCH ×4 (05:12→23:30)
[2022-08-25] MEDS: PANTOPRAZOLE 40 MG TABLET PO SCH (05:12)
--- NOTE | 2022-08-25 07:20 | PN ---
PROGRESS NOTE DATE OF SERVICE: 08/24/2022 CHIEF COMPLAINT: COVID pneumonia and right pleural effusion. HISTORY OF PRESENT ILLNESS: This lady is doing fairly well. She feels depressed today. She does have issues with depression on and off. Temperature has been down. Her breathing seems adequate. PHYSICAL EXAMINATION: CHEST: Breath sounds are diminished at the right base. CARDIAC: Normal. ABDOMEN: Soft, nontender. IMPRESSION: 1. Bronchopneumonia. 2. COVID-19. 3. Right pleural effusion. 4. Depression. PLAN: Repeat chest x-ray to look at progress of the right chest. MMODL / IJN: [id number] /
[2022-08-25] MEDS: ALBUTEROL HFA INHALER INHALATION SCH ×3 (07:32→20:45)
[2022-08-25] MEDS: valACYclovir HCL 500 MG TAB PO SCH (08:09)
--- NOTE | 2022-08-25 10:56 | P.PN ---
Subjective Progress Note Date: 08/25/22 57-year-old black female with history of breast cancer, presents to the emergency department on August 21, complaining of shortness of breath, chest congestion, and cough. The patient hasn't been feeling well for a few days, and recently saw her primary care physician who provided her with an antibiotic in the form of clindamycin. She was not improving, and decided to come to the emergency room to be evaluated. In addition to shortness of breath, cough, and chest congestion, she has significant fatigue. The patient was seen in the emergency department, and admitted. We saw her today in room 475. She was on room air. She was not receiving any IV fluids. She did not appear to be any distress whatsoever. She did test positive for coronavirus. Chest x-ray showed what appeared to be either infiltrate or atelectasis at the right lung base, with a right-sided pleural effusion. Ultrasound of the chest, revealed no free flowing fluid, and there was lung tissue within the fluid pocket. Hence, she is not a candidate for a thoracentesis at this time. She does have a history of breast cancer, asthma, GERD, angina, hyperlipidemia, osteoarthritis, multiple ALLERGIES, migraines, seizures, and Arnold-Chiari malformation. White count is 4.55, with a normal hemoglobin, hematocrit, and platelet count. Coagulation studies are normal. Electrolytes, including kidney function are completely normal. Also, liver function testing was normal. She did test positive for coronavirus. There is no evidence of DVT in the right lower extremity. Chest x-ray suggested a moderate right-sided pleural effusion. There also may be some infiltrate or atelectasis at the right lung base. The patient is seen today 08/23/2022 in follow-up on the regular medical floor. She is currently sitting up in bed. Awake and alert in no acute distress. Maintaining good O2 saturations in the 90s on room air. She remains afebrile. Hemodynamically stable. Ultrasound of the right chest revealed a 9.1 cm pocket however there was significant lung tissue within the pocket. No plans for thoracentesis. She remains on bronchodilators, empiric antibiotics in the form of doxycycline. On today's evaluation of 08/24/2022, the patient is still struggling with her breathing. She has cough and congestion and respiratory difficulties and she is unable to fully expand her lungs. Noted the patient was also checked positive for Covid 19. Chest x-ray showed a right sided pleural effusion on ultrasound the chest showed confirmed the findings, with a 9.1 cm pocket involving the right lung. As such, the presence of a right lower lobe pulmonary infiltrate and a parapneumonic effusion is not consistent with a Covid 19 infection. There may be an underlying bacterial infection also. The pro calcitonin level was checked today and development came back at 0.06. BUN is at panel with a creatinine of 0.7 and a sodium level is at 138. The WBC count is at 4.5 with a hemoglobin of 4.3. Based on those findings, give the patient combination of Rocephin and Zithromax and immediately following that, she developed a rash and itching and she was given Benadryl. She is already on IV Solu-Medrol. I may started on Levaquin probably next 24 hours. Repeat chest x-rays also required for tomorrow. The chest x-ray from today shows a persistent right lower lobe pulmonary infiltrate and a small pleural effusion on the right. On 08/25/2022, the patient is looking much better. Her breathing is improved. No significant pain along her chest. She is able to breathe easier. She is able to speak of. This is. She remains on room air oxygen. Yesterday, I repeated the chest x-ray and the patient was still having a right lower lobe consolidation with a pleural effusion. I gave her a dose of Rocephin and Zithromax. She developed some itching and tongue swelling. Antibiotics were discontinued and the patient was already on IV Solu-Medrol. As such, I'm unable to give her any similar antibiotics. I'm going to consider Levaquin for now. A repeat chest x-ray was also done for tomorrow. She has some issues with insomnia yesterday while being on steroids and I think it's reasonable to taper off her steroids. No other new complaints otherwise for now. She is looking much improved since yesterday. Objective - Vital Signs Vital signs: Vital Signs Temp 98.3 F 08/25/22 07:36 Pulse 98 08/25/22 07:36 Resp 17 08/25/22 07:36 BP 114/73 08/25/22 07:36 Pulse Ox 98 08/25/22 07:36 FiO2 21 08/25/22 07:33 Intake & Output 08/24/22 08/25/22 08/25/22 18:59 06:59 18:59 Intake Total 240 Balance 240 Intake: Oral 240 Other: Voiding Method Toilet # Voids 1 1 # Bowel Movements 1 - Exam GENERAL EXAM: Alert, very pleasant 57 year old female, on room air, comfortable in no apparent distress. The patient is currently on room air with a pulse ox of 98% HEAD: Normocephalic. EYES: Normal reaction of pupils, equal size. NOSE: Clear with pink turbinates. THROAT: No erythema or exudates. NECK: No masses, no JVD. CHEST: No chest wall deformity. LUNGS: Equal air entry with diminished breath sounds in the right base. CVS: S1 and S2 normal with no audible murmur, regular rhythm. ABDOMEN: No hepatosplenomegaly, normal bowel sounds, no guarding or rigidity. SPINE: No scoliosis or deformity SKIN: No rashes CENTRAL NERVOUS SYSTEM: No focal deficits, tone is normal in all 4 extremities. EXTREMITIES: There is no peripheral edema. No clubbing, no cyanosis. Peripheral pulses are intact. - Labs CBC & Chem 7: 08/22/22 06:21 08/22/22 06:21 Assessment and Plan Plan: Right lower lobe consolidation/pneumonia with parapneumonic effusion. Rule out viral versus bacterial. The patient was found to be positive for Covid 19. Nevertheless, this presentation is not typical for her Covid 19 pneumonia and I do suspect a bacterial infection despite the pro calcitonin level being low. The patient was given Rocephin and Zithromax and this was interrupted because of an ALLERGIC reaction. Clinically improved, may need another day of treatment with a repeat chest x-ray in the morning and reevaluation. Shortness of breath, cough, and congestion, likely related to the process at the right lung base, which likely represents infiltrate/atelectasis, and pleural effusion. Ultrasound of the right chest revealed a 9.1 cm pocket however there is significant lung tissue within the space. History of right breast cancer, treated, with subsequent bilateral mastectomy, 2019. History of chronic bronchial asthma. Patient tested positive for coronavirus infection. History of gastroesophageal reflux disease. History of hyperlipidemia. History of pneumonia. History of osteoarthritis. History of irregular migraines. History of seizure disorder. History of Arnold Chiari malformation. Plan: Doing much better on today's evaluation Discontinue the IV Solu-Medrol and put the patient prednisone burst taper Repeat chest x-ray in the morning We'll give her a course of Levaquin 500 milligrams for the next 5 days Possible home tomorrow Possible thoracentesis if there is ongoing sizable effusion on tomorrow's chest x-ray.
[2022-08-25] MEDS: LEVOFLOXACIN 500 MG TAB PO SCH (12:05)
[2022-08-25] MEDS ORDERED: BUTALB/APAP/CAFF 50-325-40MG TAB PO PRN (18:17)
--- NOTE | 2022-08-25 22:02 | DS ---
DISCHARGE SUMMARY CHIEF COMPLAINT: Shortness of breath, cough, and right pleural effusion. HISTORY OF PRESENT ILLNESS AND PHYSICAL EXAM: Details of this lady's history and physical can be found in the initial workup. LABORATORY STUDIES: While she was in the hospital, she had laboratory studies, details of which can be found in the laboratory section of her chart. COURSE IN THE HOSPITAL: After admission, she was placed on bedrest on intravenous fluids. She was found to have COVID. She was seen and followed by Pulmonology. She is also referred to Oncology. It was felt that she may require thoracentesis, which might have been helpful to rule out recurrence of her neoplasm. However, it is deemed not necessary and she was improving. She will be discharged on the on her usual activity, diet, medications and the effusion will be followed. If it persists or enlarges, we will arrange for diagnostic thoracentesis. FINAL DIAGNOSES: 1. Right lower lobe bronchopneumonia. 2. Right pleural effusion. 3. Bronchitis. 4. History of triple negative breast cancer. OPERATIONS: None. CONSULTATIONS: Pulmonology and Oncology. She is improved. MMODL / IJN: [id number] /
[2022-08-25] MEDS: ZOLPIDEM 5 MG TAB PO PRN (22:46)
[2022-08-25] MEDS: BENZONATATE 100 MG CAP PO PRN (22:46)
[2022-08-26] MEDS: guaiFENesin SYRUP 100MG/5ML 200 MG/10 ML CUP PO PRN (05:36)
[2022-08-26] MEDS: PANTOPRAZOLE 40 MG TABLET PO SCH (05:37)
--- NOTE | 2022-08-26 07:18 | XR ---
EXAMINATION TYPE: XR chest 1V DATE OF EXAM: 08/26/2022 COMPARISON: 08/24/2022 INDICATION: Pneumonia TECHNIQUE: Single frontal view of the chest is obtained. FINDINGS: The heart size is normal. The pulmonary vasculature is normal. Right lower lobe infiltrate is present. Previous right pleural effusion is diminished. IMPRESSION: 1. Right lower lobe infiltrate. 2. Resolving right pleural effusion
[2022-08-26 07:38] VITALS: RESP 16
[2022-08-26] MEDS: valACYclovir HCL 500 MG TAB PO SCH (07:47)
[2022-08-26] MEDS: methylPREDNISolone SOD SUCCI 125 MG/2 ML VIAL IV SCH ×2 (07:47→11:14)
[2022-08-26] MEDS: ALBUTEROL HFA INHALER INHALATION SCH ×2 (08:36→12:34)
[2022-08-26 09:00] LABS: HCT 38.6 % (37.2-46.3); HGB 12.4 g/dL (12.0-15.0); MCH 27.9 pg (27.0-32.0); MCHC 32.1 g/dL (32.0-37.0); MCV 86.7 fL (80.0-97.0); Mean Platelet Volume 10.6 fL (9.5-12.2); NRBC Per 100 WBC 0 /100 WBCS (0.0-0.0); Platelet Count 429 X 10*3/uL (140-440); RBC 4.45 X 10*6/uL (4.10-5.20); RDW 13.7 % (11.5-14.5); WBC 23.42 X 10*3/uL (4.50-10.00)
[2022-08-26 09:12] LABS: Albumin 4.3 g/dL (3.8-4.9); Albumin/Globulin Ratio 1.52 (1.60-3.17); Anion Gap 15.8 mmol/L (10.00-18.00); BUN/Creat Ratio 18.7 Ratio (12.00-20.00); Blood Urea Nitrogen 14.4 mg/dL (9.0-27.0); Calcium 10.2 mg/dL (8.7-10.3); Carbon Dioxide 19.1 mmol/L (20.0-27.5); Globulin 2.8 g/dL (1.6-3.3); Non-African American GFR(CKD) 86.3 (60.0-200.0); Potassium 4.2 mmol/L (3.5-5.5); Total Bilirubin 0.2 mg/dL (0.30-1.20); Total Protein 7.1 g/dL (6.2-8.2)
[2022-08-26 10:38] LABS: Basophils # (A) 0.04 X 10*3/uL (0.00-0.10); Basophils % (A) 0.2 %; Eosinophils # (A) 0 X 10*3/uL (0.04-0.35); Eosinophils % (A) 0 %; Immature Grans, Automated 0.6 %; Lymphocytes # (A) 1.53 X 10*3/uL (0.90-5.00); Lymphocytes % (A) 6.5 %; Monocytes # (A) 0.24 X 10*3/uL (0.20-1.00); Neutrophils # (A) 21.46 X 10*3/uL (1.80-7.70); Neutrophils % (A) 91.7 %; RBC Morphology NORMAL
[2022-08-26] MEDS ORDERED: BENZOCAINE/MENTHOL LOZENG 1 EACH LOZENGE MUCOUS MEM PRN (10:52)
[2022-08-26] MEDS: LEVOFLOXACIN 500 MG TAB PO SCH (11:14)
--- NOTE | 2022-08-26 11:36 | P.PN ---
Subjective Progress Note Date: 08/26/22 57-year-old black female with history of breast cancer, presents to the emergency department on August 21, complaining of shortness of breath, chest congestion, and cough. The patient hasn't been feeling well for a few days, and recently saw her primary care physician who provided her with an antibiotic in the form of clindamycin. She was not improving, and decided to come to the emergency room to be evaluated. In addition to shortness of breath, cough, and chest congestion, she has significant fatigue. The patient was seen in the emergency department, and admitted. We saw her today in room 475. She was on room air. She was not receiving any IV fluids. She did not appear to be any distress whatsoever. She did test positive for coronavirus. Chest x-ray showed what appeared to be either infiltrate or atelectasis at the right lung base, with a right-sided pleural effusion. Ultrasound of the chest, revealed no free flowing fluid, and there was lung tissue within the fluid pocket. Hence, she is not a candidate for a thoracentesis at this time. She does have a history of breast cancer, asthma, GERD, angina, hyperlipidemia, osteoarthritis, multiple ALLERGIES, migraines, seizures, and Arnold-Chiari malformation. White count is 4.55, with a normal hemoglobin, hematocrit, and platelet count. Coagulation studies are normal. Electrolytes, including kidney function are completely normal. Also, liver function testing was normal. She did test positive for coronavirus. There is no evidence of DVT in the right lower extremity. Chest x-ray suggested a moderate right-sided pleural effusion. There also may be some infiltrate or atelectasis at the right lung base. The patient is seen today 08/23/2022 in follow-up on the regular medical floor. She is currently sitting up in bed. Awake and alert in no acute distress. Maintaining good O2 saturations in the 90s on room air. She remains afebrile. Hemodynamically stable. Ultrasound of the right chest revealed a 9.1 cm pocket however there was significant lung tissue within the pocket. No plans for thoracentesis. She remains on bronchodilators, empiric antibiotics in the form of doxycycline. On today's evaluation of 08/24/2022, the patient is still struggling with her breathing. She has cough and congestion and respiratory difficulties and she is unable to fully expand her lungs. Noted the patient was also checked positive for Covid 19. Chest x-ray showed a right sided pleural effusion on ultrasound the chest showed confirmed the findings, with a 9.1 cm pocket involving the right lung. As such, the presence of a right lower lobe pulmonary infiltrate and a parapneumonic effusion is not consistent with a Covid 19 infection. There may be an underlying bacterial infection also. The pro calcitonin level was checked today and development came back at 0.06. BUN is at panel with a creatinine of 0.7 and a sodium level is at 138. The WBC count is at 4.5 with a hemoglobin of 4.3. Based on those findings, give the patient combination of Rocephin and Zithromax and immediately following that, she developed a rash and itching and she was given Benadryl. She is already on IV Solu-Medrol. I may started on Levaquin probably next 24 hours. Repeat chest x-rays also required for tomorrow. The chest x-ray from today shows a persistent right lower lobe pulmonary infiltrate and a small pleural effusion on the right. On 08/25/2022, the patient is looking much better. Her breathing is improved. No significant pain along her chest. She is able to breathe easier. She is able to speak of. This is. She remains on room air oxygen. Yesterday, I repeated the chest x-ray and the patient was still having a right lower lobe consolidation with a pleural effusion. I gave her a dose of Rocephin and Zithromax. She developed some itching and tongue swelling. Antibiotics were discontinued and the patient was already on IV Solu-Medrol. As such, I'm unable to give her any similar antibiotics. I'm going to consider Levaquin for now. A repeat chest x-ray was also done for tomorrow. She has some issues with insomnia yesterday while being on steroids and I think it's reasonable to taper off her steroids. No other new complaints otherwise for now. She is looking much improved since yesterday. On 08/26/2022, the patient is looking much better clinically. No specific complaints. She was able to tolerate Levaquin with some GI upset which was essentially tolerable. Nevertheless, she did not have any ALLERGIC reaction. A repeat chest x-ray was done today and shows improvement in the right lower lobe pulmonary infiltrate and is better visualization of the right hemidiaphragm. The white cell count is elevated and this needs to be monitored closely. Otherwise, the patient has no other new complaints and she is feeling great. She is on room air oxygen. Cough is subsiding Objective - Vital Signs Vital signs: Vital Signs Temp 97.6 F 08/26/22 07:15 Pulse 91 08/26/22 07:15 Resp 16 08/26/22 07:15 BP 102/65 08/26/22 07:15 Pulse Ox 98 08/26/22 07:15 FiO2 21 08/25/22 07:33 Intake & Output 08/25/22 08/26/22 08/26/22 18:59 06:59 18:59 Other: Voiding Method Toilet # Voids 3 3 # Bowel Movements 1 - Exam GENERAL EXAM: Alert, very pleasant 57 year old female, on room air, comfortable in no apparent distress. The patient is currently on room air with a pulse ox of 98% HEAD: Normocephalic. EYES: Normal reaction of pupils, equal size. NOSE: Clear with pink turbinates. THROAT: No erythema or exudates. NECK: No masses, no JVD. CHEST: No chest wall deformity. LUNGS: Equal air entry with diminished breath sounds in the right base. CVS: S1 and S2 normal with no audible murmur, regular rhythm. ABDOMEN: No hepatosplenomegaly, normal bowel sounds, no guarding or rigidity. SPINE: No scoliosis or deformity SKIN: No rashes CENTRAL NERVOUS SYSTEM: No focal deficits, tone is normal in all 4 extremities. EXTREMITIES: There is no peripheral edema. No clubbing, no cyanosis. Peripheral pulses are intact. - Labs CBC & Chem 7: 08/26/22 05:33 08/26/22 05:33 Labs: Abnormal Lab Results - Last 24 Hours (Table) 08/26/22 08/26/22 Range/Units 05:33 05:33 WBC 23.42 H (4.50-10.00) X 10*3/uL Immature Gran # 0.15 H (0.00-0.04) X 10*3/uL Neutrophils # 21.46 H (1.80-7.70) X 10*3/uL Eosinophils # 0 L (0.04-0.35) X 10*3/uL Carbon Dioxide 19.1 L (20.0-27.5) mmol/L Glucose 163 H (70-110) mg/dL Total Bilirubin 0.20 L (0.30-1.20) mg/dL Albumin/Globulin Ratio 1.52 L (1.60-3.17) g/dL Assessment and Plan Plan: Right lower lobe consolidation/pneumonia with parapneumonic effusion. Rule out viral versus bacterial. The patient was found to be positive for Covid 19. Nevertheless, this presentation is not typical for her Covid 19 pneumonia and I do suspect a bacterial infection despite the pro calcitonin level being low. The patient was given Rocephin and Zithromax and this was interrupted because of an ALLERGIC reaction. The patient continues to improve clinically. The repeat chest x-ray from today shows improvement in the right lower lobe pulmonary infiltration. Leukocytosis, likely reactive secondary to above. Doubt any empyema especially with improving chest x-ray Shortness of breath, cough, and congestion, likely related to the process at the right lung base, which likely represents infiltrate/atelectasis, and pleural effusion. Ultrasound of the right chest revealed a 9.1 cm pocket however there is significant lung tissue within the space. History of right breast cancer, treated, with subsequent bilateral mastectomy, 2019. History of chronic bronchial asthma. Patient tested positive for coronavirus infection. History of gastroesophageal reflux disease. History of hyperlipidemia. History of pneumonia. History of osteoarthritis. History of irregular migraines. History of seizure disorder. History of Arnold Chiari malformation. Plan: The patient can be discharged home on a course of Levaquin for 7 days and prednisone burst taper. She will need a short-term follow-up in the office with a repeat chest x-ray. If discharged today, and outpatient follow-up blood work to check and monitor CBC. I'm going to essentially left her go today with the understanding that the patient needs to do a short-term follow-up within a week for reevaluation and repeat chest x-ray.
[2022-08-26] MEDS ORDERED: LORATADINE 10 MG TAB PO SCH (12:00)
[2022-08-26 13:37] VITALS: BP 112/70; PULSE 88; TEMP 98
--- NOTE | 2022-08-26 15:02 | P.DS ---
Providers Date of admission: 08/21/22 14:57 Attending physician: Kenneth Lugo Consults: 08/21/22 14:50 Consult Physician Urgent Consulting Provider: Juan Carlos Navarrete Consult Reason/Comments: right pleural effusion Do you want consulting provider notified?: Yes 08/22/22 17:39 Consult Physician Routine Consulting Provider: Julius Sterling Consult Reason/Comments: Effusion, COVID, hx [place] Do you want consulting provider notified?: Yes, Notify in am Primary care physician: Kenneth Lugo Hospital Course: Final Diagnosis Right lower lobe pneumonia, community acquired present on admission Acute covid infection maintained on room air Right pleural effusion improving History of triple negative breast cancer Discharge Disposition Patient is stable for discharge home. Patient requires close follow up with Dr. Velasquez in the office within 1 week for close follow up and repeat chest xray. Patient is being discharged on oral levaquin for 7 days and oral steroid taper. Repeat labs in 2 to 3 days. Follow up with PCP on discharge. Hospital Course This is a pleasant 57 year old female with history of breast cancer who presents to the hospital sent in from her PCP with concern for pneumonia. Patient was evaluated by pulmonary and oncology. Chest xray on admission reveals right infiltrate and right pleural effusion. She was treated with IV antibiotics and IV solumedrol. Patient was considered for thoracentesis however pleural effusion is resolving. Patient did have increased white count up to 23 however has been maintained on high dose steroids this admission. Pulmonary has cleared patient for discharge recommending levaquin for 7 days and oral steroid taper. Patient is discharged. 08/26/2022 Patient is evaluated today sitting up in the chair. Complains of some post nasal drip and cough and is given claritin and continues on robitussion, tessalon and added cepacol lozenge. Patient denies chest pain, denies shortness of breath. Tolerating diet. Pleural effusion is resolving. Patient is afebrile and on room air. Cleared for discharge with above recommendations and close pulmonary follow up. Please see medication reconciliation for a list of current medications. Thank steffen lang for allowing us to participate in the care of this patient The impression and plan of care has been dictated by Floresita Madrigal, Nurse Practitioner as directed. Dr. Arian MD I have performed a history and physical examination and medical decision making of this patient, discussed the same with the dictator, and agree with the dictators assessment and plan as written, documented as a scribe. Based on total visit time, I have performed more than 50% of this visit. Patient Condition at Discharge: Stable Plan - Discharge Summary Discharge Rx Participant: Yes New Discharge Prescriptions: New RX: Loratadine [Claritin] 5 mg PO DAILY tab RX: predniSONE 0 mg PO DIRECTED 14 Days #40 tab RX: Levofloxacin [Levaquin] 500 mg PO Q24H #7 tab RX: Benzonatate [Tessalon Perles] 200 mg PO TID PRN #15 cap PRN Reason: Cough Continue RX: valACYclovir HCL [Valtrex] 500 mg PO DAILY RX: Zolpidem [Ambien] 5 - 10 mg PO HS PRN PRN Reason: Insomnia RX: Albuterol Sulfate [Albuterol Sulfate Hfa] 2 puff PO RT-QID PRN PRN Reason: Shortness Of Breath RX: Pantoprazole Sodium [Protonix] 40 mg PO DAILY RX: Fluticasone Nasal [place] [Flonase Nasal [place]] 1 spray EA NOSTRIL DAILY RX: Clindamycin [Cleocin] 150 mg PO TID RX: Lidocaine-Prilocaine Cream [Emla Cream 2.5%/2.5%] 1 applic TOPICAL QID Discharge Medication List RX: valACYclovir HCL [Valtrex] 500 mg PO DAILY 12/30/19 [History] RX: Zolpidem [Ambien] 5 - 10 mg PO HS PRN 04/18/20 [History] RX: Albuterol Sulfate [Albuterol Sulfate Hfa] 2 puff PO RT-QID PRN 08/21/22 [History] RX: Clindamycin [Cleocin] 150 mg PO TID 08/21/22 [History] RX: Fluticasone Nasal [place] [Flonase Nasal [place]] 1 spray EA NOSTRIL DAILY 08/21/22 [History] RX: Lidocaine-Prilocaine Cream [Emla Cream 2.5%/2.5%] 1 applic TOPICAL QID 08/21/22 [History] RX: Pantoprazole Sodium [Protonix] 40 mg PO DAILY 08/21/22 [History] RX: Benzonatate [Tessalon Perles] 200 mg PO TID PRN #15 cap 08/26/22 [Rx] RX: Levofloxacin [Levaquin] 500 mg PO Q24H #7 tab 08/26/22 [Rx] RX: Loratadine [Claritin] 5 mg PO DAILY tab 08/26/22 [Rx] RX: predniSONE 0 mg PO DIRECTED 14 Days #40 tab 08/26/22 [Rx] Follow up Appointment(s)/Referral(s): Mikaela Velasquez MD [STAFF PHYSICIAN] - 1 Week Kenneth Lugo MD [Primary Care Provider] - 1-2 Days () Ambulatory/Diagnostic Orders: Basic Metabolic Panel [LAB.AMB] Time Frame: 3 Days, Location: None Selected Complete Blood Count w/diff [LAB.AMB] Time Frame: 3 Days, Location: None Selected Activity/Diet/Wound Care/Special Instructions: Follow up with Dr. Velasquez within the next week for follow and chest xray Complete oral steroid taper Oral antibiotics daily for the next 7 days Continue to use incentive spirometer 10 x an hour Discharge Disposition: HOME SELF-CARE
== END 2022-08-26 16:41 | disposition home or self-care (01) | DRG 137 ==
LOC: EC 12:22 → 4SSUR 14:56 → OBSVTOIN 14:57 → 4SSUR 17:13
PROVIDERS: ADMIT Family Medicine; ATTEND Family Medicine
DX: U07.1 COVID-19 (principal); J15.9 Unspecified bacterial pneumonia; J90 Pleural effusion, not elsewhere classified; K21.9 Gastro-esophageal reflux disease without esophagitis; J45.909 Unspecified asthma, uncomplicated; E78.5 Hyperlipidemia, unspecified; M19.90 Unspecified osteoarthritis, unspecified site; G40.909 Epilepsy, unspecified, not intractable, without status epilepticus; G43.809 Other migraine, not intractable, without status migrainosus; F41.9 Anxiety disorder, unspecified; E07.9 Disorder of thyroid, unspecified; G47.00 Insomnia, unspecified; A60.00 Herpesviral infection of urogenital system, unspecified; T38.0X5A Adverse effect of glucocorticoids and synthetic analogues, initial encounter; L29.9 Pruritus, unspecified; L27.0 Generalized skin eruption due to drugs and medicaments taken internally; T36.1X5A Adverse effect of cephalosporins and other beta-lactam antibiotics, initial encounter; T36.3X5A Adverse effect of macrolides, initial encounter; F32.A Depression, unspecified; Q07.00 Arnold-Chiari syndrome without spina bifida or hydrocephalus; Z85.3 Personal history of malignant neoplasm of breast; Z90.13 Acquired absence of bilateral breasts and nipples; Z87.01 Personal history of pneumonia (recurrent); Z79.899 Other long term (current) drug therapy; Z88.0 Allergy status to penicillin; Z88.8 Allergy status to other drugs, medicaments and biological substances; Z88.1 Allergy status to other antibiotic agents; Z91.040 Latex allergy status; Z88.5 Allergy status to narcotic agent; Z88.6 Allergy status to analgesic agent; Z88.2 Allergy status to sulfonamides
CPT/HCPCS: 36415; 71045; 71046; 76604; 80048; 80053; 83605; 83735; 83880; 84145; 84484; 85025; 85610; 85730; 87636; 93005; 94640; 94760; 96365; 99285

== ENCOUNTER 2022-08-28 16:44 | Emergency (ER) | payer OTHER ==
[2022-08-28 17:01] VITALS: RESP 20; TEMP 98.3
--- NOTE | 2022-08-28 17:03 | ED ---
General Adult HPI - General Stated complaint: Revisit - URI Time Seen by Provider: 08/28/22 16:58 Source: patient Mode of arrival: ambulatory Limitations: no limitations - History of Present Illness Initial comments: Visual Physical Exam Vital signs reviewed General: Well-appearing, nontoxic, no acute distress. Head: Normocephalic, atraumatic ENT: Airway patent Chest: Nonlabored breathing Skin: No visual rash, normal skin tone Neuro: Alert and oriented 3 Musculoskeletal: No gross abnormalities Patient presents ambulatory with complaints of dizziness and chest pain that started today. Describes pain as throbbing in nature and radiates into her right back. States discharged on 08/26/22 with right sided pneumonia and covid. States she still has a dry cough. Is still taking steroids and levaquin as prescribed at discharge. Denies fevers. Has had nausea and diarrhea since admission and now having leg cramps. Thinks she may be dehydrated. -: days(s) (2) Location: chest (right side) Radiation: back (right side) Severity scale (1-10): 8 Quality: constant, other (cramp) Consistency: constant Improves with: none Associated Symptoms: cough - Related Data Home Medications Medication Instructions Recorded Confirmed valACYclovir HCL [Valtrex] 500 mg PO DAILY 12/30/19 08/28/22 Zolpidem [Ambien] 5 - 10 mg PO HS PRN 04/18/20 08/28/22 Albuterol Sulfate [Albuterol 2 puff INHALATION RT-QID PRN 08/21/22 08/28/22 Sulfate Hfa] Fluticasone Nasal [place] [Flonase 1 spr EA NOSTRIL DAILY 08/21/22 08/28/22 Nasal [place]] Lidocaine-Prilocaine Cream [Emla 1 applic TOPICAL QID 08/21/22 08/28/22 Cream 2.5%/2.5%] Pantoprazole Sodium [Protonix] 40 mg PO DAILY 08/21/22 08/28/22 Levofloxacin [Levaquin] 500 mg PO HS 08/28/22 08/28/22 predniSONE See Taper PO DAILY 08/28/22 08/28/22 Previous Rx's Medication Instructions Recorded Benzonatate [Tessalon Perles] 200 mg PO TID PRN #15 cap 08/26/22 Loratadine [Claritin] 5 mg PO DAILY tab 08/26/22 Allergies Allergy/AdvReac Type Severity Reaction Status Date / Time adhesive Allergy Rash/Hives Verified 08/28/22 21:16 amoxicillin Allergy Rash/Hives Verified 08/28/22 21:16 duloxetine [From Cymbalta] Allergy Hallucinati Verified 08/28/22 21:16 ons egg Allergy see comment Verified 08/28/22 21:16 erythromycin base Allergy Rash/Hives Verified 08/28/22 21:16 gluten Allergy Unknown Verified 08/28/22 21:16 Iodinated Contrast Media Allergy Rash/Hives Verified 08/28/22 21:16 latex Allergy Rash/Hives Verified 08/28/22 21:16 Penicillins Allergy Unknown Verified 08/28/22 21:16 shellfish derived [Shellfish] Allergy Unknown Verified 08/28/22 21:16 soy Allergy Unknown Verified 08/28/22 21:16 Sulfa (Sulfonamide Allergy Rash/Hives Verified 08/28/22 21:16 Antibiotics) sulfamethoxazole Allergy Rash/Hives Verified 08/28/22 21:16 [From Bactrim] trimethoprim [From Bactrim] Allergy Rash/Hives Verified 08/28/22 21:16 codeine AdvReac Vomiting Verified 08/28/22 21:16 morphine AdvReac Hallucinati Verified 08/28/22 21:16 ons Patient : No Review of Systems ROS Statement: Those systems with pertinent positive or pertinent negative responses have been documented in the HPI. ROS Other: All systems not noted in ROS Statement are negative. Past Medical History Past Medical History: Asthma, Cancer, Chest Pain / Angina, GERD/Reflux, Hyperlipidemia, Osteoarthritis (OA), Pneumonia, Thyroid Disorder Additional Past Medical History / Comment(s): Arnold Chiari Malformation; HSV type 2; right breast cancer , occ migraines, hx seizures around 1999 after brain surgery, constipation, hx anemia, thryoid nodules History of Any Multi-Drug Resistant Organisms: None Reported Past Surgical History: Appendectomy, Breast Surgery, Hysterectomy Additional Past Surgical History / Comment(s): brain surgery 2006, hx. benign right breast needle biopsy. andrea masectomy 2019, left axilla lymph enlarged, chest mass EXCISION, COLONOSCOPY, EGD Past Anesthesia/Blood Transfusion Reactions: Motion Sickness, Postoperative Nausea & Vomiting (PONV) Past Psychological History: Anxiety Smoking Status: Never smoker Past Alcohol Use History: Rare Past Drug Use History: Marijuana - Past Family History Mother Additional Family Medical History / Comment(s): Cervical, Uterine & Colon Cancer. General Exam General appearance: alert, in no apparent distress Head exam: Present: atraumatic Eye exam: Present: normal appearance. Absent: scleral icterus, conjunctival injection, periorbital swelling Neck exam: Present: full ROM. Absent: tenderness, meningismus Respiratory exam: Present: decreased breath sounds (right lower lobe). Absent: respiratory distress, wheezes, rhonchi, stridor, chest wall tenderness, accessory muscle use Cardiovascular Exam: Present: regular rate GI/Abdominal exam: Present: soft. Absent: distended, tenderness, rigid Extremities exam: Present: normal capillary refill Back exam: Present: full ROM Neurological exam: Present: alert, oriented X3, normal gait Psychiatric exam: Present: normal affect, normal mood Skin exam: Present: warm, dry, normal color. Absent: cyanosis, diaphoretic, petechiae, pallor Course Vital Signs 08/28/22 08/28/22 16:58 17:42 Temperature 98.3 F Pulse Rate 80 Respiratory 20 20 Rate Blood Pressure 140/68 O2 Sat by Pulse 99 Oximetry EKG Findings - EKG Results: EKG: sinus rhythm (Sinus rhythm with a ventricular rate of 69, [place] interval 0.120, QRS 0.98, QTc 0.388, normal axis) Medical Decision Making - Medical Decision Making Chest x-ray interpreted by me shows a right pleural effusion. Radiologist's impression right pleural effusion and some right lower lobe infiltrate and atelectasis which is not significantly different than a recent exam compared 08/26/22. No heart failure. EKG shows a sinus rhythm with a ventricular rate of 69, [place] interval 0.120, QRS 0.98, QTc 0.388, normal axis. No concerning changes compared to old 08/21/2022 White blood cell count 9.5 down from 23. Hemoglobin and hematocrit are stable. Lab called after several hours of waiting for results to report hemolyzed CMP and troponin. D-dimer negative. Patient denies any chest pain. No difficulty breathing at this time. I have a low suspicion that this is cardiac related due to the patient's recent diagnosis of coronavirus with pleural effusion. Pain is right sided with cough. Case discussed with Dr. Mondragon who is agreeable to discharging patient home. Patient instructed to return to the emergency room with any new or concerning symptoms. Continue her previously prescribed medications including steroids and Levaquin. Strict return parameters were discussed. She is agreeable to discharge. Was pt. sent in by a medical professional or institution (, VANESA, TELEPHONE MAINTAINER, urgent care, hospital, or longterm...) When possible be specific @ -No Did you speak to anyone other than the patient for history (EMS, parent, family, police, friend...)? What history was obtained from this source @ -No Did you review nursing and triage notes (agree or disagree)? Why? @ -I reviewed and agree with nursing and triage notes Were old charts reviewed (outside hosp., previous admission, EMS record, old EKG, old radiological studies, urgent care reports/EKG's, longterm records)? Report findings @ -yes previous EKG, labs and chest x-ray Differential Diagnosis (chest pain, altered mental status, abdominal pain women, abdominal pain men, vaginal bleeding, weakness, fever, dyspnea, syncope, headache, dizziness, GI bleed, back pain, seizure, CVA, palpatations, mental health, musculoskeletal)? @ -Differential Dyspnea: Coronary syndrome, arrhythmia, tamponade, asthma, COPD, pulmonary embolism, pneumonia, pneumothorax, pulmonary effusion, anaphylaxis, diabetic ketoacidosis, flailed chest, pulmonary contusion, diaphragmatic rupture, anemia, neuromuscular, this is not meant to be an all-inclusive list. EKG interpreted by me (3pts min.). @ -As above X-rays interpreted by me (1pt min.). @ -Yes as above CT interpreted by me (1pt min.). @ -None done U/S interpreted by me (1pt. min.). @ -None done What testing was considered but not performed or refused? (CT, X-rays, U/S, labs)? Why? @ -None What meds were considered but not given or refused? Why? @ -None Did you discuss the management of the patient with other professionals (professionals i.e. VANESA Green, TELEPHONE MAINTAINER, lab, RT, psych nurse, social studies department chair, control and recovery combat rescue, teacher, parking regulation enforcement officer, caser up)? Give summary @ -No Was smoking cessation discussed for >3mins.? @ -No Was critical care preformed (if so, how long)? @ -No Were there social determinants of health that impacted care today? How? (Homelessness, low income, unemployed, alcoholism, drug addiction, transportation, low edu. Level, literacy, decrease access to med. care, intermediate, rehab)? @ -No Was there de-escalation of care discussed even if they declined (Discuss DNR or withdrawal of care, Hospice)? DNR status @ -No What co-morbidities impacted this encounter? (DM, HTN, Smoking, COPD, CAD, Cancer, CVA, ARF, Chemo, Hep., AIDS, mental health diagnosis, sleep apnea, morbid obesity)? @ -Asthma, GERD, breast cancer history, hyperlipidemia Was patient admitted / discharged? Hospital course, mention meds given and route, prescriptions, significant lab abnormalities, going to OR and other pertinent info. @ -Discharged Undiagnosed new problem with uncertain prognosis? @ -No Drug Therapy requiring intensive monitoring for toxicity (Heparin, Nitro, Insulin, Cardizem)? @ -No Were any procedures done? @ -No Diagnosis/symptom? @ -Right pleural effusion, Covid Acute, or Chronic, or Acute on Chronic? @ -Acute Uncomplicated (without systemic symptoms) or Complicated (systemic symptoms)? @ -Uncomplicated Side effects of treatment? @ -No Exacerbation, Progression, or Severe Exacerbation? @ -No Poses a threat to life or bodily function? How? (Chest pain, USA, CT, pneumonia, PE, COPD, DKA, ARF, appy, cholecystitis, CVA, Diverticulitis, Homicidal, Suicidal, threat to staff... and all critical care pts) @ -No - Lab Data Result diagrams: 08/28/22 21:13 Lab Results 08/28/22 08/28/22 Range/Units 21:13 21:13 WBC 9.5 (3.8-10.6) k/uL RBC 4.80 (3.80-5.40) m/uL Hgb 13.4 (11.4-16.0) gm/dL Hct 40.5 (34.0-46.0) % MCV 84.3 (80.0-100.0) fL MCH 27.9 (25.0-35.0) pg MCHC 33.1 (31.0-37.0) g/dL RDW 13.5 (11.5-15.5) % Plt Count 422 (150-450) k/uL MPV 8.4 Neutrophils % 66 % Lymphocytes % 27 % Monocytes % 4 % Eosinophils % 1 % Basophils % 0 % Neutrophils # 6.3 (1.3-7.7) k/uL Lymphocytes # 2.5 (1.0-4.8) k/uL Monocytes # 0.4 (0-1.0) k/uL Eosinophils # 0.1 (0-0.7) k/uL Basophils # 0.0 (0-0.2) k/uL PT 10.5 (9.0-12.0) sec INR 1.0 (<1.2) APTT 22.0 (22.0-30.0) sec D-Dimer 0.40 (<0.60) mg/L FEU Disposition Clinical Impression: COVID-19, Atelectasis of right lung Disposition: HOME SELF-CARE Condition: Good Instructions (If sedation given, give patient instructions): Atelectasis (ED), COVID-19 (Coronavirus Disease 2019) (ED) Additional Instructions: Continue taking your antibiotics and steroids as previously prescribed. Continue with deep breathing and coughing. Follow-up with your primary care doctor next week. Return to the emergency room with any new or concerning symptoms. Is patient prescribed a controlled substance at d/c from ED?: No Referrals: Kenneth Lugo MD [Primary Care Provider] - 1-2 days Time of Disposition: 23:19
--- NOTE | 2022-08-28 17:44 | XR ---
EXAMINATION TYPE: XR chest 2V DATE OF EXAM: 08/28/2022 COMPARISON: 08/26/2022 HISTORY: Chest pain TECHNIQUE: FINDINGS: There is moderate blunting right costophrenic angle. Heart size is normal. Left lung is cam ar. No heart failure. Bony thorax is intact IMPRESSION: There is right pleural effusion and some right lower lobe infiltrate and atelectasis whic h is not significantly different than recent exam. No heart failure.
[2022-08-28] MEDS ORDERED: SODIUM CHLORIDE 0.9% 500 ML 500 ML IV ONE (18:06)
[2022-08-28] MEDS ORDERED: HYDROmorphone 0.5 MG/0.5 ML SYRINGE IVP STA (18:06)
[2022-08-28 21:28] LABS: Basophils % (A) 0 %; Eosinophils # (A) 0.1 k/uL (0-0.7); Eosinophils % (A) 1 %; HCT 40.5 % (34.0-46.0); HGB 13.4 gm/dL (11.4-16.0); Lymphocytes # (A) 2.5 k/uL (1.0-4.8); Lymphocytes % (A) 27 %; MCH 27.9 pg (25.0-35.0); MCHC 33.1 g/dL (31.0-37.0); MCV 84.3 fL (80.0-100.0); Mean Platelet Volume 8.4; Monocytes # (A) 0.4 k/uL (0-1.0); Monocytes % (A) 4 %; Neutrophils # (A) 6.3 k/uL (1.3-7.7); Neutrophils % (A) 66 %; Platelet Count 422 k/uL (150-450); RDW 13.5 % (11.5-15.5); WBC 9.5 k/uL (3.8-10.6)
[2022-08-28 22:08] LABS: Prothrombin Time 10.5 sec (9.0-12.0)
[2022-08-28 23:36] VITALS: BP 122/84; PULSE 86
== END 2022-08-28 23:35 | disposition home or self-care (01) ==
LOC: EC 16:44
DX: U07.1 COVID-19 (principal); J98.11 Atelectasis; J45.909 Unspecified asthma, uncomplicated; K21.9 Gastro-esophageal reflux disease without esophagitis; F41.9 Anxiety disorder, unspecified; F12.90 Cannabis use, unspecified, uncomplicated; Z91.09 Other allergy status, other than to drugs and biological substances; Z88.0 Allergy status to penicillin; Z91.012 Allergy to eggs; Z91.018 Allergy to other foods; Z91.040 Latex allergy status; Z88.2 Allergy status to sulfonamides; Z91.013 Allergy to seafood; Z88.5 Allergy status to narcotic agent; Z88.8 Allergy status to other drugs, medicaments and biological substances
CPT/HCPCS: 36415; 93005; 85379; 85025; 85610; 85730; 71046; 99285; 96374; J1170; 96361; 96375; 96376; 99284

== ENCOUNTER → 2022-09-04 | Outpatient (CLI) | payer OTHER ==
[2022-09-04 20:20] LABS: African American GFR (CKD) 95.5 (60.0-200.0); Anion Gap 13.1 mmol/L (10.00-18.00); BUN/Creat Ratio 14.38 Ratio (12.00-20.00); Blood Urea Nitrogen 11.5 mg/dL (9.0-27.0); Calcium 9.6 mg/dL (8.7-10.3); Carbon Dioxide 23.9 mmol/L (20.0-27.5); Non-African American GFR(CKD) 82.4 (60.0-200.0); Potassium 3.8 mmol/L (3.5-5.5)
== END | disposition home or self-care (01) ==
LOC: LABWHC1 13:32
PROVIDERS: ATTEND Family Medicine
DX: J98.11 Atelectasis (principal); R07.9 Chest pain, unspecified; R06.02 Shortness of breath
CPT/HCPCS: 36415; 80048; 85025

== ENCOUNTER → 2022-09-04 | Outpatient (CLI) | payer OTHER ==
--- NOTE | 2022-09-04 13:01 | CT ---
EXAMINATION TYPE: CT chest wo con DATE OF EXAM: 09/04/2022 COMPARISON: Chest CT May 28, 2022. Recent chest x-ray August 28, 2022 HISTORY: right pleural effusion, recent covid pneumonia. History of breast cancer. CT DLP: 229.7 mGycm. Automated Exposure Control for Dose Reduction was Utilized. TECHNIQUE: CT scan of the thorax is performed without IV contrast. FINDINGS: LUNGS: Fairly moderate size right pleural effusion extends to lung apex level. There is associated co mpressive atelectasis in the right lower lobe. Left lung is clear. MEDIASTINUM: Lack of IV contrast is noted to limit evaluation for mediastinal and especially hilar ad enopathy. There are no definitive greater than 1 cm hilar or mediastinal lymph nodes. Small pericardi al effusion is seen. No cardiomegaly. OTHER: There is 4 mm renal calculus left kidney medially on axial image 59.. Bilateral breasts are loera rgically absent IMPRESSION: Moderate-sized right pleural effusion with associated right lung compressive atelectasis. Etiology uncertain. Consider ultrasound-guided thoracentesis for diagnostic benefits to better evalu ate this unilateral effusion with unknown source. Pleural-based lesion or neoplasm is in differential .
== END | disposition home or self-care (01) ==
LOC: RADCTMAIN 12:25
PROVIDERS: ATTEND Family Medicine
DX: Z00.00 Encounter for general adult medical examination without abnormal findings (principal); J90 Pleural effusion, not elsewhere classified; J98.11 Atelectasis
CPT/HCPCS: 71250

== ENCOUNTER → 2022-09-11 | Outpatient (CLI) | payer OTHER ==
--- NOTE | 2022-09-11 07:48 | US ---
EXAMINATION TYPE: US venous doppler duplex LE RT DATE OF EXAM: 09/11/2022 7:29 AM COMPARISON: US 08/22/2022 CLINICAL HISTORY: M79.661 PAIN RT LOWER LIMB. Pain in right lower limb. Recent lung cancer diagnosis. Hx breast cancer. No hx of DVT. Patient does not take blood thinners. SIDE PERFORMED: Right TECHNIQUE: The lower extremity deep venous system is examined utilizing real time linear array sonog kerline with graded compression, doppler sonography and color-flow sonography. VESSELS IMAGED: Common Femoral Vein Deep Femoral Vein Greater Saphenous Vein * Femoral Vein Popliteal Vein Small Saphenous Vein * Proximal Calf Veins (* superficial vessels) Right Leg: No evidence of DVT. IMPRESSION: No evidence for deep vein thrombosis.
== END | disposition home or self-care (01) ==
LOC: RADUSWWP 06:56
PROVIDERS: ATTEND Family Medicine
DX: M79.661 Pain in right lower leg (principal)

== ENCOUNTER → 2022-09-19 | Outpatient (CLI) | payer OTHER ==
--- NOTE | 2022-09-20 12:41 | PE ---
EXAMINATION TYPE: PET CT fusion skull to thigh DATE OF EXAM: 09/19/2022 CLINICAL INDICATION:Female, 57 years old with history of C50.411; TECHNIQUE: Following the intravenous administration of 13.7 mCi of F-18 FDG, whole body images are performed from the skull base to the midthigh. Images are reviewed on the computer in the coronal, a xial, and sagittal planes. Reconstructed rotating images are created on independent workstation and reviewed on the computer. A non-contrast CT is performed in conjunction with the PET scan. Glucose level 111 mg/dL COMPARISON: CT 09/04/2022, 05/28/2022, PET/CT 06/19/2022, FINDINGS: Mediastinal SUV mean is 1.9. Hepatic parenchyma SUV mean is 2.6. SKULL BASE AND NECK: * No suspicious radiotracer activity. * Left posterior inferior thyroid gland FDG activity max SUV 4.0, previously 5.1, 4.9. CHEST, MEDIASTINUM, AND HILAR REGION: May be mild FDG activity of the pleura posteriorly max SUV 1.9 ABDOMEN AND PELVIS: No suspicious radiotracer activity. OSSEOUS STRUCTURES: Increased FDG activity at the right first rib and sternum max SUV 5.3 and the asutin rnum and 4.3 and the first rib, previously 3.4 in the sternum and 3.2 in the rib. There is now more s ubtle lucency within the sternum which is not present on prior. Series [address] Righ t second rib anteriorly has max SUV 2.4 which is new. OTHER CT: Mild emphysema changes. There is large right pleural effusion with associated atelectasis c hanges.. Fat-containing umbilical hernia. Few scattered clonic diverticula. IMPRESSION: 1. Interval increase in the FDG activity in the sternum and right first rib now suspicious given inc rease in FDG activity and new correlating lucency within the osseous structure in the sternum on toda y's exam. Findings favor malignancy given these changes. Additional right second rib also demonstrate s increased FDG activity. 2. Increasing right pleural effusion now large with minimal FDG activity along the pleural metastati c pleural effusion. Correlate with the diagnostic right thoracentesis. 3. Left posterior inferior thyroid gland mild FDG activity as seen on prior PET scan.
== END | disposition home or self-care (01) ==
LOC: RADPETMAIN 06:46
PROVIDERS: ATTEND Internal Medicine Hematology & Oncology
DX: C50.411 Malignant neoplasm of upper-outer quadrant of right female breast (principal); J90 Pleural effusion, not elsewhere classified; C78.2 Secondary malignant neoplasm of pleura
CPT/HCPCS: 78815; A9552